=== PATIENT | female | born 1965 | race Two or more races ===

== ENCOUNTER 2020-12-21 08:07 | Outpatient (REF) | payer OTHER, SELFPAY ==
[2020-12-21 09:13] LABS: Estimated Average Glucose 105 mg/dL; Hemoglobin A1c % 5.3 %
[2020-12-21 09:35] LABS: Alanine Aminotransferase 79 U/L (0-31); Albumin Level 4.2 g/dL (3.5-5.0); Alkaline Phosphatase 119 U/L (39-117); Anion Gap 11 (12-20); Aspartate Amino Transferase 26 U/L (5-31); Blood Urea Nitrogen 18 mg/dL (9-16); Calcium 9.9 mg/dL (8.4-10.2); Carbon Dioxide 29 mmol/L (22-29); Chloride 105 mmol/L (96-108); Estimated Glomerular Filt Rate > 60; Glucose Random 100 mg/dL (60-115); Sodium 141 mmol/L (135-145); Total Protein 6.9 g/dL (6.5-8.0)
[2020-12-21 10:04] LABS: Free T4 (Free Thyroxine) 1.34 ng/dL (0.71-1.85); Thyroid Stimulating Hormone 0.13 uIU/mL (0.32-4.0)
[2020-12-21 12:29] LABS: Creatinine Urine 95.09 mg/dL
== END 2020-12-21 08:08 | disposition home or self-care (01) ==
LOC: HO.LAB 08:07
PROVIDERS: PCP Internal Medicine; Visit Provider Internal Medicine
DX: E03.9 Hypothyroidism, unspecified (principal); E11.65 Type 2 diabetes mellitus with hyperglycemia; K76.0 Fatty (change of) liver, not elsewhere classified
CPT/HCPCS: 36415; 80053; 83036; 84439; 84443

== ENCOUNTER 2021-03-06 10:25 | Outpatient (REF) | payer OTHER, SELFPAY ==
--- NOTE | ~2021-03-06 | MM_ITS ---
EXAMINATION: MM SCREENING DIGITAL BREAST TOMOSYNTHESIS, BILATERAL CLINICAL INFORMATION: Screening. Asymptomatic. Prior bilateral mastopexy, 2007. The lifetime risk of breast cancer based on the Tyrer-Cuzick Model is 9%. COMPARISON: Mammography: 03/04/2020, 02/27/2019, 12/30/2017 TECHNIQUE: Digital breast tomosynthesis is performed in both the craniocaudal and mediolateral oblique views along with computer-aided detection (CAD). Synthesized 2D images are generated from the tomosynthesis. FINDINGS: There are scattered areas of fibroglandular density (ACR BI-RADS breast composition Category b). There is minor stable scarring consistent with prior mastopexy. There is no interval mass or developing density or abnormal calcifications. No architectural abnormality. There are some dermal calcifications lower breasts. Vascular calcifications are noted periareolar left breast. The axilla are unremarkable. No significant changes from prior exams. MM/MM tomosynthesis screening BI IMPRESSION: No mammographic evidence of malignancy. ASSESSMENT: BI-RADS 2: Benign RECOMMENDATION: Routine annual mammography screening. This patient's information was entered into a reminder system with a target due date for their next mammogram.
== END 2021-03-06 10:26 | disposition home or self-care (01) ==
LOC: HO.MAMMO 10:25
PROVIDERS: Visit Provider Internal Medicine
DX: Z12.31 Encounter for screening mammogram for malignant neoplasm of breast (principal)
CPT/HCPCS: 77063; 77067

== ENCOUNTER 2022-03-09 10:18 | Outpatient (REF) | payer OTHER, SELFPAY ==
--- NOTE | ~2022-03-09 | MM_ITS ---
EXAMINATION: MM SCREENING DIGITAL BREAST TOMOSYNTHESIS, BILATERAL CLINICAL INFORMATION: Screening. Asymptomatic. History bilateral mastopexy, 2008. The lifetime risk of breast cancer based on the Tyrer-Cuzick Model is 8%. COMPARISON: Mammography: 03/06/2021, 03/04/2020, 02/27/2019 TECHNIQUE: Digital breast tomosynthesis is performed in both the craniocaudal and mediolateral oblique views along with computer-aided detection (CAD). Synthesized 2D images are generated from the tomosynthesis. FINDINGS: There are scattered areas of fibroglandular density (ACR BI-RADS breast composition Category b). Right tissue composition borders on predominantly fatty. Background fibroglandular and stromal markings are stable. There is minor scarring consistent with the prior mastopexy. No interval mass or architectural abnormality or developing density. No abnormal calcifications. The axilla are unremarkable. MM/MM tomosynthesis screening BI IMPRESSION: No mammographic evidence of malignancy. ASSESSMENT: BI-RADS 2: Benign RECOMMENDATION: Routine annual mammography screening. This patient's information was entered into a reminder system with a target due date for their next mammogram.
== END 2022-03-09 10:19 | disposition home or self-care (01) ==
LOC: HO.MAMMO 10:18
PROVIDERS: PCP Internal Medicine; Visit Provider Internal Medicine
DX: Z12.31 Encounter for screening mammogram for malignant neoplasm of breast (principal)
CPT/HCPCS: 77063; 77067

== ENCOUNTER 2022-06-06 11:26 | Outpatient (REF) | payer OTHER, SELFPAY ==
[2022-06-06 11:40] LABS: MANUAL DIFF FLAG NO
[2022-06-06 12:11] LABS: Basophils Absolute Auto 0.1 X10*3/uL (0.0-0.2); Eosinophils Absolute Auto 0.1 X10*3/uL (0.0-0.4); Eosinophils Percent Auto 2.7 % (0-4); Hematocrit 40.4 % (37.0-47.0); Hemoglobin 12.9 g/dl (12.0-16.0); Imm Gran Abs Auto 0.03 X10*3/uL (0.00-0.03); Imm Gran Pct Auto 0.6 % (0.0-0.4); Lymphocytes Absolute Auto 1.8 X10*3/uL (1.2-4.9); Lymphocytes Percent Auto 34.6 % (20-40); Mean Corpuscular HGB Conc 31.9 g/dl (31.0-35.0); Mean Corpuscular Hemoglobin 28.8 pg (27.0-33.0); Mean Corpuscular Volume 90.2 fL (80.0-98.0); Monocytes Absolute Auto 0.4 X10*3/uL (0.1-1.2); Monocytes Percent Auto 7.1 % (2-11); Neutrophils Absolute Auto 2.8 x10*3/uL (2.0-8.3); Platelet Count 285 X10*3/uL (160-400); Red Blood Count 4.48 X10*6/uL (4.20-5.50); Red Cell Distribution Width 13.1 % (11.0-16.0); White Blood Count 5.2 X10*3/uL (4.8-10.8)
[2022-06-06 12:19] LABS: Estimated Average Glucose 103 mg/dL; Hemoglobin A1c % 5.2 %
[2022-06-06 12:44] LABS: Alanine Aminotransferase 68 U/L (0-31); Albumin Level 4.4 g/dL (3.5-5.0); Alkaline Phosphatase 100 U/L (39-117); Anion Gap 9 (12-20); Aspartate Amino Transferase 49 U/L (5-31); Bilirubin Total 0.6 mg/dL (0.0-1.0); Blood Urea Nitrogen 15 mg/dL (9-16); Calcium 9.8 mg/dL (8.4-10.2); Carbon Dioxide 29 mmol/L (22-29); Chloride 106 mmol/L (96-108); Cholesterol 202 mg/dL; Estimated Glomerular Filt Rate > 60; Glucose Random 100 mg/dL (60-115); HDL Cholesterol 62 mg/dL; LDL Cholesterol Calculated 128 mg/dl; Potassium 4.4 mmol/L (3.3-5.1); Sodium 140 mmol/L (135-145); Total Protein 6.9 g/dL (6.5-8.0); Triglycerides 62 mg/dL
[2022-06-06 13:06] LABS: Free T4 (Free Thyroxine) 1.02 ng/dL (0.71-1.85); Thyroid Stimulating Hormone 1.08 uIU/mL (0.32-4.0)
[2022-06-06 13:43] LABS: Folate 12.6 ng/mL (> or = 4.0); Vitamin B12 437 pg/mL (200-900)
== END 2022-06-06 11:27 | disposition home or self-care (01) ==
LOC: HO.LAB 11:26
PROVIDERS: PCP Internal Medicine; Visit Provider Internal Medicine
DX: R73.02 Impaired glucose tolerance (oral) (principal); E03.9 Hypothyroidism, unspecified; E78.00 Pure hypercholesterolemia, unspecified; I10 Essential (primary) hypertension
CPT/HCPCS: 36415; 80053; 80061; 82306; 82607; 82746; 83036; 84439; 84443; 85025

== ENCOUNTER → 2022-09-03 14:03 | Outpatient (BNVA) | payer OTHER, SELFPAY | PROVIDERS: PCP Internal Medicine; Referring Provider Internal Medicine; Visit Provider Nurse Practitioner Family | DX: Z13.89 Encounter for screening for other disorder (principal) ==

== ENCOUNTER 2023-01-07 15:50 | Outpatient (AMB) | payer OTHER, SELFPAY ==
[2023-01-07 15:56] VITALS: BP 130/72; PULSE 78; O2SAT 98; BMI 38.4
--- NOTE | 2023-01-07 15:56 | A.OFFPC_ITS ---
Vital Signs 01/07/23 15:56 Height 5 ft 4 in Weight 224 lb BMI 38.4 BP 130/72 Blood Pressure Location Lt brachial Position Sitting Pulse 78 Pulse Source Pulse Oximeter Pulse Oximetry (%) 98 Oxygen Delivery Method Room Air Intake Visit Reasons: PE Allergies No Known Allergies [No Known Allergies*] Allergy (Verified 01/07/23 15:56) Medication List - Last Reconciled 01/07/23 by Johnathan Zayas MD bisacodyl (Dulcolax (bisacodyl)) 10 mg (2 x 5 mg) PO ONCE 1 day cholecalciferol (vitamin D3) 50 mcg PO DAILY hydrochlorothiazide 25 mg PO DAILY levothyroxine 175 mcg PO DAILY 90 days polyethylene glycol 3350 (Miralax) 238 grams PO ONCE polyethylene glycol 3350 (Miralax) 17 grams PO DAILY Tobacco use date assessed: 08/06/22 Dental Screening Dental Screen Date: 01/07/23 Did you have a dental visit in the last 12 months?: Yes Did you have a dental problem in the last 6 months where you did not have access to dental care?: No Was dental information given to patient?: Patient has dentist HPI PE HPI Details 57-year-old obese female with hypertension hypothyroidism impaired glucose tolerance coming in for physical exam. Last seen in July 2022. Because of the history of tubular adenoma referral to Gastroenterology done. eye watery right side and seen eye doctor rx eye drop . 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 with plantar fasciitis patient is interested with semaglutide for losing weight PFSH Medical History (Updated 01/07/23 @ 16:31 by Johnathan Zayas MD) Anxiety and depression Colon cancer screening Fatty liver Glaucoma Hypertension Hypothyroid Obesity (BMI 30-39.9) Peripheral vascular disease Tubular adenoma of colon Vitamin D deficiency Surgical History History of breast mammoplasty History of cholecystectomy History of tubal ligation Family History (Updated 01/07/23 @ 15:57 by Raquel Cruz CMA) Father CVA (cerebrovascular accident due to intracerebral hemorrhage) Stroke Mother No problems noted. Sister Depression Son Drug abuse Brother CVA (cerebrovascular accident due to intracerebral hemorrhage) Social History (Updated 01/07/23 @ 16:30 by Johnathan Zayas MD) Housing: House Alcohol intake: current Alcohol intake frequency: a few times a week Patient Tobacco Use Status: Never used Tobacco e-Cigarette/Vaping Use: Never Used Second Hand Smoke Exposure: No service: No Current occupational status: employed Cognitive needs: No Hearing needs: No Vision needs: Yes Questionnaire PHQ-9 Over the last 2 weeks, how often have you been bothered by any of the following problems? 1. Little interest or pleasure in doing things: not at all 2. Feeling down, depressed, or hopeless: not at all 3. Trouble falling or staying asleep, or sleeping too much: not at all 4. Feeling tired or having little energy: not at all 5. Poor appetite or overeating: not at all 6. Feeling bad about yourself - or that you are a failure or have let yourself or your family down: not at all 7. Trouble concentrating on things, such as reading the newspaper or watching television: not at all 8. Moving or speaking so slowly that other people could have noticed. Or the opposite - being so fidgety or restless that you have been moving around a lot more than usual: not at all 9. Thoughts that you would be better off or of hurting yourself in some way: not at all Total score: 0 Depression Screening Interpretation: Negative Source: Developed by Drs. Inocencio Hernandez, Trini Calle, Maximilian Conway and colleagues, with an educational denise from [employer]. Thrive Questionnaire Date Thrive assessed: 08/06/22 AUDIT C Alcohol Use Questionnaire (AUDIT-C) 1. How often do you have a drink containing alcohol?: 2-3 times a week 2. How many drinks containing alcohol do you have on a typical day when you are drinking?: 3 or 4 3. How often do you have six or more drinks on one occasion?: Never Total Score: 4 DANI-7 AMB Questionnaire DANI-7 Date DANI - 7 assessed: 08/06/22 Source: Developed by Drs. Inocencio Hernandez, Maximilian Brown and colleagues, with an educational denise from [employer]. Review of Systems Const Denies poor appetite and Denies weakness Eyes Denies no additional complaints ENT Reports Normal hearing present, Denies dizziness, Denies nasal congestion, Denies tinnitus and Denies sore throat Card Denies chest pain, Denies syncope, Denies rapid heart rate and Denies dyspnea Resp Denies cough and Denies dyspnea GI Denies change in stool character, Reports constipation, Denies diarrhea, Denies nausea and Denies vomiting Denies urinary frequency, Denies difficulty voiding and Denies dysuria Neuro Reports Normal hearing present, Denies confusion, Denies dizziness, Denies syncope and Denies weakness Psych Denies confusion Physical exam (Primary Care) Vital Signs: Last Vital Signs Pulse 78 01/07/23 15:56 BP 130/72 01/07/23 15:56 Pulse Ox 98 01/07/23 15:56 Oxygen Delivery Method Room Air 01/07/23 15:56 BMI result Body Mass Index 38.4 Tobacco/Smoking Status: Tobacco use Status Tobacco use date assessed 08/06/22 01/07/23 15:58 Patient Tobacco Use Status Never used Tobacco 01/07/23 15:58 e-Cigarette/Vaping Use Never Used 01/07/23 15:58 PHQ-9: PHQ-9 Score PHQ-9: Total score 0 01/07/23 15:58 Depression Screening Interpretation: Negative Thrive Assessment: Date of Thrive Assessment Date Thrive assessed 08/06/22 01/07/23 15:58 Const General: No confusion Orientation/consciousness: No confusion HENMT Head: Yes normocephalic Ears: external ears normal and TM's normal bilaterally Face and sinus: Yes normal facial exam Mouth: moist mucous membranes Throat: Yes tonsils normal Eyes Conjunctivae: conjunctivae normal Pupils: Equal, round and reactive pupils present and Pupil accommodation reflex normal Direct Ophthalmoscopy: normal light reflex Neck Neck: No lymphadenopathy Thyroid: Thyroid normal Chest Chest palpation & inspection: normal inspection of the chest Resp Effort & Inspection: normal respiratory effort and no audible wheezes Auscultation: clear to auscultation bilaterally, no crackles, no wheezes and lung sounds not diminished Cardio Rate: regular rate Rhythm: regular rhythm Peripheral pulses: radial pulses present and dorsalis pedis present GI Other: Colonoscopy is pending Palpation (GI): no masses Auscultation: normal bowel sounds and normoactive bowel sounds Rectal Exam - Female: deferred Skin General skin exam: no rashes or lesions noted Rashes: no rashes Neuro General: No confusion Cranial nerves: Yes Equal, round and reactive pupils present and Yes Normal hearing present Cognition (Neuro): normal cognition Gait exam (Neuro): Normal gait present Motor exam (neuro): 5/5 motor strength present throughout Deep tendon reflexes (DTR's): Right brachioradialis reflex intensity grade: 2+, Left brachioradialis reflex intensity grade: 2+, Right patellar reflex intensity grade: 2+ and Left patellar reflex intensity grade: 2+ Extrem General: No edema Assessment and Plan Assessment & Plan (1) Annual physical exam: Code(s): Z00.00 - Encounter for general adult medical examination without abnormal findings (2) Obesity (BMI 30-39.9): Code(s): E66.9 - Obesity, unspecified Plan: Diet and exercise (3) Hypothyroid: Code(s): E03.9 - Hypothyroidism, unspecified Qualifiers: Hypothyroidism type: acquired Qualified Code(s): E03.9 - Hypothyroidism, unspecified Plan: Continue with the thyroid medication (4) Hypertension: Code(s): I10 - Essential (primary) hypertension Qualifiers: Hypertension type: essential hypertension Qualified Code(s): I10 - Essential (primary) hypertension Plan: Continue with blood pressure medication. Decrease salt intake and exercise patient is taking hydrochlorothiazide 25 mg once a day (5) Generalized anxiety disorder: Code(s): F41.1 - Generalized anxiety disorder Plan: Stable (6) Tubular adenoma of colon: Code(s): D12.6 - Benign neoplasm of colon, unspecified Plan: Patient has met with gastroenterology and planned colonoscopy February (7) Fatty liver: Code(s): K76.0 - Fatty (change of) liver, not elsewhere classified Plan: Low-fat diet and exercise (8) Impaired glucose tolerance: Code(s): R73.02 - Impaired glucose tolerance (oral) Plan: Decrease the amount of carbohydrate intake, pasta, bread, rice and potatoes are all sugar and that is aside from all the sweet stuff, remember that fruits are good but they are Sweet also. (9) Hearing deficit: Code(s): H91.90 - Unspecified hearing loss, unspecified ear Orders: Orders Vitamin B12 and Folate Today E03.9 - Hypothyroidism, unspecified Comprehensive Met. Panel Today E03.9 - Hypothyroidism, unspecified Hemoglobin A1c Today R73.02 - Impaired glucose tolerance (oral) Lipid Panel Today E03.9 - Hypothyroidism, unspecified, E78.00 - Pure hypercholesterolemia, unspecified Free T4 (Free Thyroxine) Today E03.9 - Hypothyroidism, unspecified Thyroid Stimulating Hormone Today E03.9 - Hypothyroidism, unspecified Vitamin D 25-OH Total Today E03.9 - Hypothyroidism, unspecified Complete Blood Count Auto Diff Today E03.9 - Hypothyroidism, unspecified Referrals Speech and Hearing Referral H91.90 - Unspecified hearing loss, unspecified ear Medications: New semaglutide for 4 weeks 0.25 mg (0.368 mL) subcut QWEEK 3 mL 1RF E66.9 - Obesity, unspecified Coding Level of Care Code Est Pt Prev Care 40-64y(84644) Diagnoses Annual physical exam Z00.00 Obesity (BMI 30-39.9) E66.9 Hypothyroid E03.9 Hypothyroidism type: acquired Hypertension I10 Hypertension type: essential hypertension Generalized anxiety disorder F41.1 Tubular adenoma of colon D12.6 Fatty liver K76.0 Impaired glucose tolerance R73.02 Hearing deficit H91.90
== END 2023-01-07 17:06 | disposition home or self-care (01) ==
PROVIDERS: PCP Internal Medicine; Visit Provider Internal Medicine
DX: Z00.00 Encounter for general adult medical examination without abnormal findings (principal); E66.9 Obesity, unspecified; E03.9 Hypothyroidism, unspecified; Z68.34 Body mass index [BMI] 34.0-34.9, adult; I10 Essential (primary) hypertension; F41.1 Generalized anxiety disorder; D12.6 Benign neoplasm of colon, unspecified; K76.0 Fatty (change of) liver, not elsewhere classified; R73.02 Impaired glucose tolerance (oral)
CPT/HCPCS: 99396

== ENCOUNTER 2023-02-20 08:03 | Day surgery (SDC) | payer OTHER, SELFPAY ==
[2023-02-18 09:56] VITALS: BMI 38.4
--- NOTE | 2023-02-19 13:07 | HO.ANESPROP2 ---
Documented by User: Tracy Hope NP 02/19/23 13:07 HPI - Anesthesia Eval Consult details Narrative: 57yo F for Colonoscopy PMFSH Active Problems Active Problems: All Active Problems (Updated 01/07/23 @ 16:31 by Johnathan Zayas MD) Hearing deficit (Acute) Meralgia paresthetica of left side (Acute) Plantar fasciitis of left foot (Acute) Constipation (Acute) COVID-19 virus infection (Acute) Generalized anxiety disorder (Acute) Annual physical exam (Acute) Visual problems (Acute) Tubular adenoma of colon (Acute) Fatty liver (Acute) Impaired glucose tolerance (Acute) Obesity (BMI 30-39.9) (Acute) Hypertension (Acute) Hypothyroid (Acute) Past Medical History Medical History (Updated 01/07/23 @ 16:31 by Johnathan Zayas MD) Tubular adenoma of colon Colon cancer screening Glaucoma Anxiety and depression Obesity (BMI 30-39.9) Vitamin D deficiency Hypertension Hypothyroid Peripheral vascular disease Fatty liver Family History Family History (Updated 01/07/23 @ 15:57 by Raquel Cruz WATCH AND CLOCK REPAIR CLERK) Father CVA (cerebrovascular accident due to intracerebral hemorrhage) Stroke Mother No problems noted. Sister Depression Son Drug abuse Brother CVA (cerebrovascular accident due to intracerebral hemorrhage) Surgical History Surgical History History of breast mammoplasty History of cholecystectomy History of tubal ligation Social History Social History (Updated 01/07/23 @ 16:30 by Johnathan Zayas MD) Housing: House Alcohol intake: current Alcohol intake frequency: a few times a week Patient Tobacco Use Status: Never used Tobacco e-Cigarette/Vaping Use: Never Used Second Hand Smoke Exposure: No service: No Current occupational status: employed Cognitive needs: No Hearing needs: No Vision needs: Yes Meds Allergies Allergy/AdvReac Type Severity Reaction Status Date / Time No Known Allergies Allergy Verified 01/07/23 15:56 [No Known Allergies*] Home Medications Medication Instructions Recorded Confirmed Last Taken Type cholecalciferol (vitamin D3) 50 50 mcg PO DAILY 01/02/22 01/07/23 Unknown History mcg (2,000 unit) capsule Exam Exam Date and Time: February 19, 2023 1307 Height,Weight and Vital Signs: Height 5 ft 4 in Weight 101.605 kg Assessment and Plan Assessment Anesthesia Assessment: Chart Reviewed Documented by User: Ja Ventura MD 02/20/23 16:40 PMF Past Medical History Medical History (Updated 01/07/23 @ 16:31 by Johnathan Zayas MD) Tubular adenoma of colon Colon cancer screening Glaucoma Anxiety and depression Obesity (BMI 30-39.9) Vitamin D deficiency Hypertension Hypothyroid Peripheral vascular disease Fatty liver Functional capacity: independent ambulation Family History Family History (Updated 01/07/23 @ 15:57 by Raquel Cruz [facility]) Father CVA (cerebrovascular accident due to intracerebral hemorrhage) Stroke Mother No problems noted. Sister Depression Son Drug abuse Brother CVA (cerebrovascular accident due to intracerebral hemorrhage) Family history of problems with anesthesia: No Surgical History Surgical History History of breast mammoplasty History of cholecystectomy History of tubal ligation History of Problems with Anesthesia: No Social History Social History (Updated 01/07/23 @ 16:30 by Johnathan Zayas MD) Housing: House Alcohol intake: current Alcohol intake frequency: a few times a week Patient Tobacco Use Status: Never used Tobacco e-Cigarette/Vaping Use: Never Used Second Hand Smoke Exposure: No service: No Current occupational status: employed Cognitive needs: No Hearing needs: No Vision needs: Yes Meds Allergies Allergy/AdvReac Type Severity Reaction Status Date / Time No Known Allergies Allergy Verified 01/07/23 15:56 [No Known Allergies*] Home Medications Medication Instructions Recorded Confirmed Last Taken Type cholecalciferol (vitamin D3) 50 50 mcg PO DAILY 01/02/22 01/07/23 Unknown History mcg (2,000 unit) capsule Exam Airway Mallampati Class: III Loose/Missing/Broken Teeth: Yes Assessment and Plan Assessment Anesthesia Assessment: Anesthesia Plan Discussed Final Anesthetic Review Family History of Problems with Anesthesia: No History of Problems with Anesthesia: No NPO: Yes ASA Class: III Final Preanesthetic Review: Meds/Allgs Chart Reviewed, Consent Obtained/Reviewed and Anes Risks/Benef Reviewed Patient Risk: Intermediate Procedure Risk: Intermediate Anesthetic Plan Anesthetic Plan: MAC: Disposition: Standard PACU
[2023-02-20 09:37] VITALS: BP 138/48; PULSE 64; RESP 18; TEMP 36.3; O2SAT 97; BMI 37.8
[2023-02-20] MEDS: Lactated Ringers 1,000 ML 100 ML IVCONT (09:45)
--- NOTE | 2023-02-20 10:17 | P.HPSUR_ITS ---
Pre-Procedural Eval Section A Date of Service: 02/20/23 Section B Chief Complaint: Encounter for screening for malignant neoplasm Relevant Family History (Specify if Yes): No Relevant Social History: None Present Medications: see Short Stay Collaborative assessment Medical History: Significant History (Tubular adenoma of colon Colon cancer screening Glaucoma Anxiety and depression Obesity (BMI 30-39.9) Vitamin D deficiency Hypertension Hypothyroid Peripheral vascular disease Fatty liver) History of Previous Operations: Relevant previous surgery/procedure and date(s) (History of breast mammoplasty History of cholecystectomy History of tubal ligation) Allergies: Allergies Allergy/AdvReac Type Severity Reaction Status Date / Time No Known Allergies Allergy Verified 01/07/23 15:56 [No Known Allergies*] Review of Systems Sugical H&P ROS: Negative: Constitution, Cardiovascular, Respiratory, Neurological, Psychiatric, Hem-Onc, Allergic/Immunologic, Gastrointestinal, Genitourinary, Musculoskeletal, Integumentary, Endocrine and Eyes/Ears/Nose/Thr oat Exam Surgical H&P Exam: Normal: HEENT, Normal: Heart, Normal: Lungs, Normal: Extremities, Normal: Abdomen, Normal: Skin and Normal: Neurological Plan Diagnosis/Plan: Unchanged I have reviewed the history and physical and performed a pertinent physical examination on my patient. No changes have occurred unless specified. Time Spent With Patient Time: Total time managing care of this patient today ____ minutes.
--- NOTE | 2023-02-20 10:18 | W.PM.OPN ---
Operative Note Operative Note Date of Service: 02/20/23 Narrative: Operative Information Procedure Description: Colonoscopy Indication: screening Anesthesia: MAC COLONOSCOPY Instrument: Olympus variable stiffness pediatric scope 190L Colonoscopy Monitoring: Vital signs and clinical assessment, continuous EKG monitoring, Pulse oximetry, Carbon Dioxide monitoring and blood pressure monitoring were done throughout the procedure. Colon withdrawal time was 10 minutes. Procedure: The patient was placed in the left lateral decubitis position and pre-procedure medications were administered. After a digital rectal examination of the ano-rectum, the video colonoscope was inserted into the rectum and advanced through the colon to the cecum/TI. The colonoscope was slowly withdrawn in a retrograde panoramic fashion and the colon mucosa was carefully examined including a retroflexed view of the rectum. Findings and interventions are described below. Procedure Difficulty: moderate, looping, pressure applied Findings: Terminal Ileum-not intubated Cecum:normal Ascending Colon: normal Transverse Colon -normal Descending Colon: mild diverticulosis Sigmoid Colon:moderate diverticulosis Rectum: Retroflexion with small internal hemorrhoids, grade I Anorectum - normal Colon preparation: [place] Bowel Preparation Scale Right colon; 1-2 Transverse colon: 2 Left colon; 2 (0 = Unprepared colon segment with mucosa not seen due to solid stool that cannot be cleared. 1 = Portion of mucosa of the colon segment seen, but other areas of the colon segment not well seen due to staining, residual stool and/or opaque liquid. 2 = Minor amount of residual staining, small fragments of stool and/or opaque liquid, but mucosa of colon segment seen well. 3 = Entire mucosa of colon segment seen well with no residual staining, small fragments of stool or opaque liquid) Impression and Post Procedure Diagnosis: internal hemorrhoids diverticular disease Plan: High fiber diet leaflet Avoid straining at stool, epsom salts and sitz bath, anusol supps or cream Repeat Colonoscopy in 5 years due to fair prep on right side or earlier if clinically indicated Above findings were reviewed with the patient and relevant handouts were provided if indicated.
[2023-02-20 10:58] VITALS: BP 138/86; PULSE 81; RESP 16; TEMP 36.1; O2SAT 100
[2023-02-20 11:13] VITALS: BP 151/90; PULSE 73; RESP 14; TEMP 36.1; O2SAT 98
== END 2023-02-20 12:25 | disposition home or self-care (01) ==
PROVIDERS: PCP Internal Medicine; Visit Provider Internal Medicine Gastroenterology
PROC: 0DJD8ZZ Inspection of Lower Intestinal Tract, Via Natural or Artificial Opening Endoscopic (ICD-10-PCS; CPT 45378; principal; 2023-02-20 10:50)
DX: Z12.11 Encounter for screening for malignant neoplasm of colon (principal); Z86.010 Personal history of colon polyps; K57.30 Diverticulosis of large intestine without perforation or abscess without bleeding; K64.0 First degree hemorrhoids; K76.0 Fatty (change of) liver, not elsewhere classified; I10 Essential (primary) hypertension; I73.9 Peripheral vascular disease, unspecified; E03.9 Hypothyroidism, unspecified; E55.9 Vitamin D deficiency, unspecified; F41.8 Other specified anxiety disorders; Z90.49 Acquired absence of other specified parts of digestive tract
CPT/HCPCS: 45378; J2405; J2765

== ENCOUNTER → 2023-02-20 08:03 | Outpatient (BNV) | payer OTHER, SELFPAY | PROVIDERS: PCP Internal Medicine; Visit Provider Internal Medicine Gastroenterology | DX: Z12.11 Encounter for screening for malignant neoplasm of colon (principal); K57.90 Diverticulosis of intestine, part unspecified, without perforation or abscess without bleeding; K64.9 Unspecified hemorrhoids | CPT/HCPCS: 45378 ==

== ENCOUNTER 2023-03-05 15:58 | Outpatient (AMB) | payer OTHER, SELFPAY ==
--- NOTE | 2023-03-05 16:01 | A.OFFVIS_ITS ---
Intake Vital Signs 03/05/23 16:02 Height 5 ft 4 in Weight 220 lb 7.396 oz BMI 37.8 BP 163/73 H Blood Pressure Location Lt brachial Position Sitting Pulse 72 Intake Visit Reasons: S/P [place];Dr. Pedersen Intake Note: Esha presents in the office as a follow up colonoscopy. CC: No concerns since her procedure. Calibration Engineer Required: No Allergies No Known Allergies [No Known Allergies*] Allergy (Verified 03/05/23 16:04) HPI S/P [place];Dr. Pedersen HPI Details LAST VISIT Colon cancer screening Patient denies any GI, cardiac or respiratory symptoms.? Denies any issues with anesthesia in the past.? Denies any history of sleep apnea.? No history infectious diseases in the past or present.? Not on any anticoagulation therapy.? No family history of colon cancer.? Patient denies melena, hematochezia, unintentional weight loss or ribbon like stools.? Discussed at length the pre-procedure,? prep, diet & medications as well as what to expect prior, during and after the procedure.?? Stressed the importance of good bowel prep. ?Recommended the use of Vaseline or Calmoseptine OTC & baby wipes with bowel movements to promote comfort.? ?Patient verbalizes understanding and agrees to plan of care.? She was given the opportunity to ask questions and all questions answered.? We will see her after the procedure.? COLONOSCOPY: Findings: Terminal Ileum-not intubated Cecum:normal Ascending Colon: normal Transverse Colon -normal Descending Colon: mild diverticulosis Sigmoid Colon:moderate diverticulosis Rectum: Retroflexion with small internal hemorrhoids, grade I Anorectum - normal Colon preparation: [place] Bowel Preparation Scale Right colon; 1-2 Transverse colon: 2 Left colon; 2 (0 = Unprepared colon segment with mucos a not seen due to solid stool that cannot be cleared. 1 = Portion of mucosa of the colon segme nt seen, but other areas of the colon segment not well seen due to staining, residual stool and/or opaque liquid. 2 = Minor amount of residual staining, s mall fragments of stool and/or opaque liquid, but mucosa of colon segment seen well. 3 = Entire mucosa of colon segment seen well with no residual staining, small fragments of stool or opaque liquid) Impression and Post Procedure Diagnosis: internal hemorrhoids diverticular disease Plan: High fiber diet leaflet Avoid straining at stool, epsom salts and sitz bath, anusol supps or cream Repeat Colonoscopy in 5 years due to fair prep on right side or earlier if clinically indicated TODAY'S VISIT Patient is here today for follow-up and to discuss colonoscopy results. Patient denies any ill effects from the prep, anesthesia or procedure itself. Internal hemorrhoids and diverticulosis found. No polyps. Patient did have however suboptimal prep and recommendation was made for patient to return for colorectal screening in 5 years. Also patient had colonoscopy 2016 that showed tubular a denoma. Patient denies any family history of colorectal cancer. Patient denies any melena, hematochezia, unintentional weight loss or ribbon like stools. Patient denies any other GI concerning symptoms. Reports that she has been moving her bowels better [facility] Medical History (Updated 01/07/23 @ 16:31 by Johnathan Zayas MD) Tubular adenoma of colon Colon cancer screening Glaucoma Anxiety and depression Obesity (BMI 30-39.9) Vitamin D deficiency Hypertension Hypothyroid Peripheral vascular disease Fatty liver Surgical History (Updated 03/05/23 @ 16:02 by MARTIN Arnold) Hx of colonoscopy History of breast mammoplasty History of cholecystectomy History of tubal ligation Family History (Updated 01/07/23 @ 15:57 by Raquel Cruz CMA) Father CVA (cerebrovascular accident due to intracerebral hemorrhage) Stroke Mother No problems noted. Sister Depression Son Drug abuse Brother CVA (cerebrovascular accident due to intracerebral hemorrhage) Social History (Updated 01/07/23 @ 16:30 by Johnathan Zayas MD) Housing: House Alcohol intake: current Alcohol intake frequency: a few times a week Patient Tobacco Use Status: Never used Tobacco e-Cigarette/Vaping Use: Never Used Second Hand Smoke Exposure: No service: No Current occupational status: employed Cognitive needs: No Hearing needs: No Vision needs: Yes Review of Systems Const Denies weight gain and Denies weight loss ENT Reports no additional complaints, Denies dysphagia and Denies odynophagia Card Reports no additional complaints Resp Reports no additional complaints GI Denies abdominal pain, Denies belching, Denies melena, Denies bloating, Denies change in bowel habits, Denies dysphagia, Denies excessive flatus, Denies dyspepsia, Denies heartburn, Denies diarrhea, Denies loose stools, Denies nausea, Denies odynophagia and Denies vomiting Musc Reports no additional complaints Neuro Reports no additional complaints Psych Reports no additional complaints Endo Reports no additional complaints Physical Exam Vital Signs: Last Vital Signs Pulse 72 03/05/23 16:02 BP 163/73 H 03/05/23 16:02 BMI result Body Mass Index 37.8 Const General: healthy appearing, no acute distress and well developed Nutritional Appearance: obese Orientation/consciousness: patient oriented x3 HEENT Head: Yes normal to inspection, Yes normocephalic and Yes atraumatic Face and sinus: Yes normal facial exam Mouth: Normal oral and palatal mucosa present Throat: Yes posterior oropharynx normal, Yes tonsils normal and Yes uvula midline Eyes General: appearance normal, both eyes and all related structures Neck Neck: Yes normal visual inspection, Yes full ROM and Yes trachea midline Thyroid: Thyroid normal Resp Effort & Inspection: normal respiratory effort, able to speak in complete sentences, no tracheal deviation and symmetric chest movement Auscultation: clear to auscultation bilaterally Cardio Rate: regular rate Heart sounds: S1 normal heart sound present and S2 normal heart sound present GI Inspection: Yes normal to inspection, No distended and Yes obesity Palpation (GI): Soft to palpation, not firm, nontender and No hepatosplenomegaly present Auscultation: normal bowel sounds General: Yes no CVA tenderness Back/Spine/Pelvis Back: no CVA tenderness Skin General skin exam: elasticity normal, turgor normal and dry skin Neuro General: patient oriented x3 Psych Appearance: grossly normal Mental Status: mental status grossly normal Assessment & Plan Assessment & Plan (1) Status post colonoscopy: Code(s): Z98.890 - Other specified postprocedural states (2) Diverticulosis: Code(s): K57.90 - Diverticulosis of intestine, part unspecified, without perforation or abscess without bleeding Plan Patient will repeat colonoscopy in 5 years, sooner if clinically necessary. Patient denies any GI concerning symptoms. Discussed with patient high-fiber diet and importance of moving her bowels daily. Patient reports that she is doing better. Denies having constipation. I will see her on as needed basis. Patient is agreeable to this plan and verbalizes understanding of instructions. She was given the opportunity to ask questions and all questions answered. Thank you for allowing me to participate her care Coding Level of Care Code Est Pt Level 3 (86296) Diagnoses Status post colonoscopy Z98.890 Diverticulosis K57.90 Time Spent (min) 25 Comment 15 minutes spent with patient and additional 10 minutes spent reviewing her records.
[2023-03-05 16:02] VITALS: BP 163/73; PULSE 72; BMI 37.8
== END 2023-03-05 16:38 | disposition home or self-care (01) ==
PROVIDERS: PCP Internal Medicine; Visit Provider Nurse Practitioner Family
DX: Z98.890 Other specified postprocedural states (principal); K57.90 Diverticulosis of intestine, part unspecified, without perforation or abscess without bleeding
CPT/HCPCS: 99213

== ENCOUNTER → 2023-03-05 15:58 | Outpatient (BNVA) | payer OTHER, SELFPAY | PROVIDERS: PCP Internal Medicine; Visit Provider Nurse Practitioner Family ==

== ENCOUNTER 2023-03-14 14:58 | Outpatient (REF) | payer OTHER, SELFPAY ==
--- NOTE | ~2023-03-14 | MM_ITS ---
EXAMINATION: MM SCREENING DIGITAL BREAST TOMOSYNTHESIS, BILATERAL CLINICAL INFORMATION: Screening. Asymptomatic. The patient has had a prior bilateral breast reduction. COMPARISON: Mammography: This study is compared with prior exams dating back to 2018. TECHNIQUE: Digital breast tomosynthesis is performed in both the craniocaudal and mediolateral oblique views along with computer-aided detection (CAD). Synthesized 2D images are generated from the tomosynthesis. FINDINGS: The breasts are almost entirely fatty (ACR BI-RADS breast composition Category a). There are no significant masses, abnormal calcifications, or other abnormalities. Post reduction changes are present. MM/MM tomosynthesis screening BI IMPRESSION: No mammographic evidence of malignancy. ASSESSMENT: BI-RADS BI-RADS 2 - Benign Findings RECOMMENDATION: Routine annual mammography screening. 1 year F/U This examination should not preclude the clinical evaluation of a suspicious palpable abnormality. This patient's information was entered into a reminder system with a target due date for their next mammogram.
== END 2023-03-14 14:59 | disposition home or self-care (01) ==
LOC: HO.MAMMO 14:58
PROVIDERS: PCP Internal Medicine; Visit Provider Internal Medicine
DX: Z12.31 Encounter for screening mammogram for malignant neoplasm of breast (principal)
CPT/HCPCS: 77063; 77067

== ENCOUNTER → 2023-03-14 15:15 | Outpatient (BNV) | payer OTHER, SELFPAY | PROVIDERS: PCP Internal Medicine; Visit Provider Radiology Diagnostic Radiology | DX: Z12.31 Encounter for screening mammogram for malignant neoplasm of breast (principal) | CPT/HCPCS: 77063; 77067 ==

== ENCOUNTER 2023-04-10 07:42 | Outpatient (REF) | payer OTHER, SELFPAY ==
[2023-04-10 10:34] LABS: MANUAL DIFF FLAG NO
[2023-04-10 10:39] LABS: Basophils Absolute Auto 0.1 X10*3/uL (0.0-0.2); Basophils Percent Auto 1.4 % (0-2); Eosinophils Absolute Auto 0.3 X10*3/uL (0.0-0.4); Eosinophils Percent Auto 4.4 % (0-4); Hematocrit 40.9 % (37.0-47.0); Imm Gran Abs Auto 0.03 X10*3/uL (0.00-0.03); Imm Gran Pct Auto 0.5 % (0.0-0.4); Lymphocytes Percent Auto 34.6 % (20-40); Mean Corpuscular HGB Conc 31.8 g/dl (31.0-35.0); Mean Corpuscular Hemoglobin 29.3 pg (27.0-33.0); Mean Corpuscular Volume 92.1 fL (80.0-98.0); Mean Platelet Volume 10.9 fL (9.4-12.3); Monocytes Absolute Auto 0.4 X10*3/uL (0.1-1.2); Monocytes Percent Auto 7.8 % (2-11); Neutrophils Absolute Auto 2.9 x10*3/uL (2.0-8.3); Neutrophils Percent Auto 51.3 % (45-73); Platelet Count 287 X10*3/uL (160-400); Red Blood Count 4.44 X10*6/uL (4.20-5.50); White Blood Count 5.7 X10*3/uL (4.8-10.8)
[2023-04-10 10:53] LABS: Estimated Average Glucose 105 mg/dL; Hemoglobin A1c % 5.3 % (<6.0)
[2023-04-10 10:58] LABS: Alanine Aminotransferase 43 U/L (0-31); Albumin Level 4.2 g/dL (3.5-5.0); Alkaline Phosphatase 97 U/L (39-117); Anion Gap 13 (12-20); Aspartate Amino Transferase 35 U/L (5-31); Bilirubin Total 0.4 mg/dL (0.0-1.0); Blood Urea Nitrogen 21 mg/dL (9-16); Calcium 10.1 mg/dL (8.4-10.2); Carbon Dioxide 28 mmol/L (22-29); Chloride 105 mmol/L (96-108); Cholesterol 218 mg/dL (<200); Estimated Glomerular Filt Rate > 60; Glucose Random 107 mg/dL (60-115); HDL Cholesterol 62 mg/dL (>40); LDL Cholesterol Calculated 134 mg/dL (<100); Potassium 3.6 mmol/L (3.3-5.1); Sodium 142 mmol/L (135-145); Total Protein 6.9 g/dL (6.5-8.0); Triglycerides 114 mg/dL (<150)
[2023-04-10 11:14] LABS: Free T4 (Free Thyroxine) 0.79 ng/dL (0.71-1.85); Thyroid Stimulating Hormone 8.77 uIU/mL (0.32-4.0); Vitamin D 25-OH Total 22.4 ng/mL (>30)
[2023-04-10 11:26] LABS: Folate 7.3 ng/mL (> or = 4.0); Vitamin B12 455 pg/mL (200-900)
== END 2023-04-10 07:43 | disposition home or self-care (01) ==
LOC: HO.10HDL 07:42
PROVIDERS: Visit Provider Internal Medicine
DX: E03.9 Hypothyroidism, unspecified (principal); R73.02 Impaired glucose tolerance (oral); E78.00 Pure hypercholesterolemia, unspecified; E55.9 Vitamin D deficiency, unspecified
CPT/HCPCS: 36415; 80053; 80061; 82306; 82607; 82746; 83036; 84439; 84443; 85025

== ENCOUNTER 2023-04-15 15:09 | Outpatient (AMB) | payer OTHER, SELFPAY ==
[2023-04-15 15:13] VITALS: BP 142/92; PULSE 75; O2SAT 99; BMI 37.8
--- NOTE | 2023-04-15 15:13 | MHC.PC.OV ---
Vital Signs 04/15/23 15:13 Height 5 ft 4 in Weight 220 lb BMI 37.8 BP 142/92 H Blood Pressure Location Lt brachial Position Sitting Pulse 75 Pulse Source Pulse Oximeter Pulse Oximetry (%) 99 Oxygen Delivery Method Room Air Intake Visit Reasons: 3 month f/u Auto Painter Required: No Software Implementation Specialist: Not Required per policy Accompanied by: Self / Same As Patient Allergies No Known Allergies [No Known Allergies*] Allergy (Verified 04/15/23 15:13) Tobacco use date assessed: 08/06/22 Dental Screening Dental Screen Date: 04/15/23 Did you have a dental visit in the last 12 months?: Yes Did you have a dental problem in the last 6 months where you did not have access to dental care?: No Was dental information given to patient?: Patient has dentist HPI 3 month f/u HPI Details 57-year-old obese female with hypothyroidism hypertension generalized anxiety disorder fatty liver impaired glucose tolerance last seen in January 2023 for physical exam. Patient had tubular adenoma and had colonoscopy February 2023. Blood work was done showing elevated TSH and patient admits to missing doses. With this advised patient to take the medication regularly and religiously and retest blood work. 3 weeks post flu shot - has congestion and wheezing , no fevers, - partner sick patient also has the blood pressure problem. [facility]LY [facility] Medical History Tubular adenoma of colon Colon cancer screening Glaucoma Anxiety and depression Obesity (BMI 30-39.9) Vitamin D deficiency Hypertension Hypothyroid Peripheral vascular disease Fatty liver Surgical History Hx of colonoscopy History of breast mammoplasty History of cholecystectomy History of tubal ligation Family History Father CVA (cerebrovascular accident due to intracerebral hemorrhage) Stroke Mother No problems noted. Sister Depression Son Drug abuse Brother CVA (cerebrovascular accident due to intracerebral hemorrhage) Social History Housing: House Alcohol intake: current Alcohol intake frequency: a few times a week Patient Tobacco Use Status: Never used Tobacco e-Cigarette/Vaping Use: Never Used Second Hand Smoke Exposure: No service: No Current occupational status: employed Cognitive needs: No Hearing needs: No Vision needs: Yes Questionnaire PHQ-9 Over the last 2 weeks, how often have you been bothered by any of the following problems? 1. Little interest or pleasure in doing things: not at all 2. Feeling down, depressed, or hopeless: not at all 3. Trouble falling or staying asleep, or sleeping too much: not at all 4. Feeling tired or having little energy: not at all 5. Poor appetite or overeating: not at all 6. Feeling bad about yourself - or that you are a failure or have let yourself or your family down: not at all 7. Trouble concentrating on things, such as reading the newspaper or watching television: not at all 8. Moving or speaking so slowly that other people could have noticed. Or the opposite - being so fidgety or restless that you have been moving around a lot more than usual: not at all 9. Thoughts that you would be better off or of hurting yourself in some way: not at all Total score: 0 Depression Screening Interpretation: Negative Depression Screening Done: Yes Source: Developed by Drs. Inocencio Hernandez, Trini Calle, Maximilian Conway and colleagues, with an educational denise from [employer]. Thrive Questionnaire Date Thrive assessed: 08/06/22 AUDIT C Alcohol Use Questionnaire (AUDIT-C) 1. How often do you have a drink containing alcohol?: 2-3 times a week 2. How many drinks containing alcohol do you have on a typical day when you are drinking?: 3 or 4 3. How often do you have six or more drinks on one occasion?: Never Total Score: 4 DANI-7 AMB Questionnaire DANI-7 Date DANI - 7 assessed: 08/06/22 Source: Developed by Drs. Inocencio Hernandez, Trini Calle, Maximilian Conway and colleagues, with an educational denise from [employer]. Physical exam (Primary Care) Vital Signs: Last Vital Signs Pulse 75 04/15/23 15:13 BP 142/92 H 04/15/23 15:13 Pulse Ox 99 04/15/23 15:13 Oxygen Delivery Method Room Air 04/15/23 15:13 BMI result Body Mass Index 37.8 Tobacco/Smoking Status: Tobacco use Status Tobacco use date assessed 08/06/22 04/15/23 15:18 Patient Tobacco Use Status Never used Tobacco 04/15/23 15:18 e-Cigarette/Vaping Use Never Used 04/15/23 15:18 PHQ-9: PHQ-9 Score PHQ-9: Total score 0 04/15/23 15:18 Depression Screening Interpretation: Negative Thrive Assessment: Date of Thrive Assessment Date Thrive assessed 08/06/22 04/15/23 15:18 Const General: alert; No acute distress Eyes Conjunctivae: conjunctivae normal Resp Auscultation: clear to auscultation bilaterally Cardio Rate: regular rate Rhythm: regular rhythm GI Inspection: Yes normal to inspection Extrem General: Yes normal to inspection and No edema Assessment and Plan Assessment & Plan (1) Hypothyroid: Code(s): E03.9 - Hypothyroidism, unspecified Qualifiers: Hypothyroidism type: acquired Qualified Code(s): E03.9 - Hypothyroidism, unspecified Plan: Patient was reminded to take the medication religiously and retest the blood work in 6 weeks (2) Hypertension: Code(s): I10 - Essential (primary) hypertension Qualifiers: Hypertension type: essential hypertension Qualified Code(s): I10 - Essential (primary) hypertension Plan: Continue with blood pressure medication. Decrease salt intake and exercise patient takes hydrochlorothiazide 25 mg once a day. With blood pressure not controlled medication adjustment (3) Obesity (BMI 30-39.9): Code(s): E66.9 - Obesity, unspecified Plan: Diet and exercise (4) Impaired glucose tolerance: Code(s): R73.02 - Impaired glucose tolerance (oral) Plan: Decrease the amount of carbohydrate intake, pasta, bread, rice and potatoes are all sugar and that is aside from all the sweet stuff, remember that fruits are good but they are Sweet also. (5) Fatty liver: Code(s): K76.0 - Fatty (change of) liver, not elsewhere classified Plan: Low-fat diet and exercise (6) Generalized anxiety disorder: Code(s): F41.1 - Generalized anxiety disorder Plan: Keep active keep well hydrated. (7) Allergic asthma: Code(s): J45.909 - Unspecified asthma, uncomplicated (8) Hypercholesterolemia: Code(s): E78.00 - Pure hypercholesterolemia, unspecified Plan: Avoid fried foods, chicken skin, eggs, butter margarine, pastries and meat. Be it pork or beef they have a lot of cholesterol LDL goal of less than 130 and triglyceride of less than 150 Orders: Orders Comprehensive Met. Panel 2 Months I10 - Essential (primary) hypertension XR chest 2V 1 Week J45.909 - Unspecified asthma, uncomplicated Medications: New lisinopril-hydrochlorothiazide 10-12.5 mg 1 tab PO DAILY 30 tabs 2RF I10 - Essential (primary) hypertension albuterol sulfate 90 mcg/actuation (Ventolin HFA) 2 puffs inhalation Q6H PRN 8.5 grams 0RF shortness of breath or wheezing J45.909 - Unspecified asthma, uncomplicated fexofenadine (Carolyn Allergy) 180 mg PO DAILY 30 tabs 2RF J45.909 - Unspecified asthma, uncomplicated Discontinued hydrochlorothiazide Discontinued Reason: Ancillary Entered New Order 25 mg PO DAILY 90 tabs 2RF Coding Level of Care Code Est Pt Level 4 (67288) Diagnoses Acquired hypothyroidism E03.9 Hypothyroidism type: acquired Essential hypertension I10 Hypertension type: essential hypertension Obesity (BMI 30-39.9) E66.9 Impaired glucose tolerance R73.02 Fatty liver K76.0 Generalized anxiety disorder F41.1 Allergic asthma J45.909 Hypercholesterolemia E78.00
== END 2023-04-15 15:40 | disposition home or self-care (01) ==
PROVIDERS: PCP Internal Medicine; Visit Provider Internal Medicine
DX: E03.9 Hypothyroidism, unspecified (principal); I10 Essential (primary) hypertension; R73.02 Impaired glucose tolerance (oral); K76.0 Fatty (change of) liver, not elsewhere classified; F41.1 Generalized anxiety disorder; J45.909 Unspecified asthma, uncomplicated; E78.00 Pure hypercholesterolemia, unspecified
CPT/HCPCS: 99214

== ENCOUNTER 2023-10-16 08:09 | Outpatient (REF) | payer OTHER, SELFPAY ==
[2023-10-16 12:35] LABS: Alanine Aminotransferase 369 U/L (0-31); Alkaline Phosphatase 142 U/L (39-117); Anion Gap 14 (12-20); Aspartate Amino Transferase 168 U/L (5-31); Bilirubin Total 0.5 mg/dL (0.0-1.0); Blood Urea Nitrogen 12 mg/dL (9-16); Calcium 9.3 mg/dL (8.4-10.2); Carbon Dioxide 23 mmol/L (22-29); Chloride 108 mmol/L (96-108); Estimated Glomerular Filt Rate > 60; Free T4 (Free Thyroxine) 1.12 ng/dL (0.71-1.85); Glucose Random 114 mg/dL (60-115); Potassium 3.7 mmol/L (3.3-5.1); Sodium 141 mmol/L (135-145); Thyroid Stimulating Hormone 0.93 uIU/mL (0.32-4.0); Total Protein 6.9 g/dL (6.5-8.0)
== END 2023-10-16 08:10 | disposition home or self-care (01) ==
LOC: HO.10HDL 08:09
PROVIDERS: Visit Provider Internal Medicine
DX: I10 Essential (primary) hypertension (principal); E03.9 Hypothyroidism, unspecified
CPT/HCPCS: 36415; 80053; 84439; 84443

== ENCOUNTER 2023-10-16 11:04 | Outpatient (AMB) | payer OTHER, SELFPAY ==
[2023-10-16 11:05] VITALS: BP 176/104; PULSE 80; O2SAT 98; BMI 37.1
--- NOTE | 2023-10-16 11:05 | MHC.PC.OV ---
Vital Signs 10/16/23 11:05 10/16/23 11:22 Height 5 ft 4 in Weight 216 lb BMI 37.1 BP 176/104 H 146/80 H Blood Pressure Location Lt brachial Lt brachial Position Sitting Sitting Pulse 80 Pulse Source Pulse Oximeter Pulse Oximetry (%) 98 Oxygen Delivery Method Room Air Intake Visit Reasons: HTN, hypothryoid, cough Certified [employer] Engineer Required: No Termite Control Representative: Not Required per policy Accompanied by: Self / Same As Patient Allergies No Known Allergies [No Known Allergies*] Allergy (Verified 10/16/23 11:05) Tobacco use date assessed: 10/16/23 Dental Screening Dental Screen Date: 10/16/23 Did you have a dental visit in the last 12 months?: Yes Did you have a dental problem in the last 6 months where you did not have access to dental care?: No Was dental information given to patient?: Patient has dentist HPI HTN, hypothryoid, cough HPI Details 58-year-old obese female with hypothyroid hypertension impaired glucose tolerance fatty liver generalized anxiety disorder asthma and hypercholesterolemia last seen in April 2023. Patient's colonoscopy is up-to-date February 2023 mammogram is up-to-date March 2023. Patient has not been using the inhaler. As for the blood work just had it this morning. Results pending [facility]LY [facility] Medical History Tubular adenoma of colon Colon cancer screening Glaucoma Anxiety and depression Obesity (BMI 30-39.9) Vitamin D deficiency Hypertension Hypothyroid Peripheral vascular disease Fatty liver Surgical History Hx of colonoscopy History of breast mammoplasty History of cholecystectomy History of tubal ligation Family History Father CVA (cerebrovascular accident due to intracerebral hemorrhage) Stroke Mother No problems noted. Sister Depression Son Drug abuse Brother CVA (cerebrovascular accident due to intracerebral hemorrhage) Social History Housing: House Alcohol intake: current Alcohol intake frequency: a few times a week Patient Tobacco Use Status: Never used Tobacco e-Cigarette/Vaping Use: Never Used Second Hand Smoke Exposure: No service: No Current occupational status: employed Cognitive needs: No Hearing needs: No Vision needs: Yes Questionnaire PHQ-9 Over the last 2 weeks, how often have you been bothered by any of the following problems? 1. Little interest or pleasure in doing things: not at all 2. Feeling down, depressed, or hopeless: not at all 3. Trouble falling or staying asleep, or sleeping too much: not at all 4. Feeling tired or having little energy: not at all 5. Poor appetite or overeating: not at all 6. Feeling bad about yourself - or that you are a failure or have let yourself or your family down: not at all 7. Trouble concentrating on things, such as reading the newspaper or watching television: not at all 8. Moving or speaking so slowly that other people could have noticed. Or the opposite - being so fidgety or restless that you have been moving around a lot more than usual: not at all 9. Thoughts that you would be better off or of hurting yourself in some way: not at all Total score: 0 Depression Screening Interpretation: Negative Depression Screening Done: Yes Source: Developed by Drs. Inocencio Hernandez, Trini Calle, Maximilian Conway and colleagues, with an educational denise from [employer] Thrive Questionnaire Date Thrive assessed: 10/16/23 I am a: Patient What is your living situation today?: I have a steady place to live Within the past 12 months, did the food you bought not last and you didn't have the money to get more?: Never true Within the past 12 months, did you worry whether your food would run out before you got money to buy more?: Never true Do you have trouble paying for medicines?: No Do you have trouble getting transportation to medical appointments?: No Do you have trouble paying your heating and electricity bill?: No Do you have trouble taking care of your child, family member or friend?: No Do you have trouble with day-to-day activities such as bathing, preparing meals, shopping, managing finances, etc.?: No Are you currently unemployed and looking for a job?: No Are you interested in more education?: No Please select the resources that you would like help with: None THRIVE Score: 0 AUDIT C Alcohol Use Questionnaire (AUDIT-C) 1. How often do you have a drink containing alcohol?: 2-3 times a week 2. How many drinks containing alcohol do you have on a typical day when you are drinking?: 3 or 4 3. How often do you have six or more drinks on one occasion?: Never Total Score: 4 DANI-7 AMB Questionnaire DANI-7 Date DANI - 7 assessed: 10/16/23 Feeling nervous, anxious, or on edge: 0 = Not at all Not being able to stop or control worryin = Not at all Worrying too much about different things: 0 = Not at all Trouble relaxin = Not at all Being so restless that it is hard to sit still: 0 = Not at all Becoming easily annoyed or irritable: 0 = Not at all Feeling afraid as if something awful might happen: 0 = Not at all Total DANI-7 score (0-4 normal; 5-9 mild; 10-14 moderate; 15-21 severe): 0 Source: Developed by Drs. Inocencio Hernandez, Trini Calle, Maximilian Conway and colleagues, with an educational denise from [employer] Physical exam (Primary Care) Vital Signs: Last Vital Signs Pulse 80 10/16/23 11:05 BP 176/104 H 10/16/23 11:05 Pulse Ox 98 10/16/23 11:05 Oxygen Delivery Method Room Air 10/16/23 11:05 BMI result Body Mass Index 37.1 Tobacco/Smoking Status: Tobacco use Status Tobacco use date assessed 10/16/23 10/16/23 11:06 Patient Tobacco Use Status Never used Tobacco 10/16/23 11:06 e-Cigarette/Vaping Use Never Used 10/16/23 11:06 PHQ-9: PHQ-9 Score PHQ-9: Total score 0 10/16/23 11:06 Depression Screening Interpretation: Negative Thrive Assessment: Date of Thrive Assessment Date Thrive assessed 10/16/23 10/16/23 11:06 Const General: alert; No acute distress Eyes Conjunctivae: conjunctivae normal Resp Auscultation: clear to auscultation bilaterally Cardio Rate: regular rate Rhythm: regular rhythm GI Inspection: Yes normal to inspection Extrem General: Yes normal to inspection and No edema Assessment and Plan Assessment & Plan (1) Hypothyroid: Code(s): E03.9 - Hypothyroidism, unspecified Qualifiers: Hypothyroidism type: acquired Qualified Code(s): E03.9 - Hypothyroidism, unspecified Plan: Presently on levothyroxine 175 mcg once a day patient's blood work needs to be repeated. . Patient just had blood work done today results not in (2) Hypertension: Code(s): I10 - Essential (primary) hypertension Qualifiers: Hypertension type: essential hypertension Qualified Code(s): I10 - Essential (primary) hypertension Plan: Continue with blood pressure medication. Decrease salt intake and exercise on lisinopril hydrochlorothiazide 10/12.5 once a day. Discussed with the patient that the blood pressure remains to be elevated advised to increase lisinopril hydrochlorothiazide to twice a day (3) Obesity (BMI 30-39.9): Code(s): E66.9 - Obesity, unspecified Plan: Diet and exercise (4) Impaired glucose tolerance: Code(s): R73.02 - Impaired glucose tolerance (oral) Plan: Decrease the amount of carbohydrate intake, pasta, bread, rice and potatoes are all sugar and that is aside from all the sweet stuff, remember that fruits are good but they are Sweet also. (5) Fatty liver: Code(s): K76.0 - Fatty (change of) liver, not elsewhere classified Plan: Low-fat diet and exercise (6) Generalized anxiety disorder: Code(s): F41.1 - Generalized anxiety disorder Plan: Stable (7) Allergic asthma: Code(s): J45.909 - Unspecified asthma, uncomplicated Plan: Presently on albuterol inhaler and stable had been using as needed and has not been using the inhaler. (8) Hypercholesterolemia: Code(s): E78.00 - Pure hypercholesterolemia, unspecified Plan: Avoid fried foods, chicken skin, eggs, butter margarine, pastries and meat. Be it pork or beef they have a lot of cholesterol LDL goal of less than 130 and triglyceride of less than 150. Orders: Orders Hemoglobin A1c Today R73.02 - Impaired glucose tolerance (oral) Lipid Panel Today E78.00 - Pure hypercholesterolemia, unspecified Medications: Changed From lisinopril-hydrochlorothiazide 10-12.5 mg 1 tab PO DAILY 90 tabs 0RF I10 - Essential (primary) hypertension To lisinopril-hydrochlorothiazide 10-12.5 mg 1 tab PO BID 180 tabs 0RF I10 - Essential (primary) hypertension Coding Level of Care Code Est Pt Level 4 (65720) Diagnoses Acquired hypothyroidism E03.9 Hypothyroidism type: acquired Essential hypertension I10 Hypertension type: essential hypertension Obesity (BMI 30-39.9) E66.9 Impaired glucose tolerance R73.02 Fatty liver K76.0 Generalized anxiety disorder F41.1 Allergic asthma J45.909 Hypercholesterolemia E78.00
[2023-10-16 11:22] VITALS: BP 146/80
== END 2023-10-16 11:27 | disposition home or self-care (01) ==
PROVIDERS: PCP Internal Medicine; Visit Provider Internal Medicine
DX: E03.9 Hypothyroidism, unspecified (principal); I10 Essential (primary) hypertension; E66.9 Obesity, unspecified; Z68.37 Body mass index [BMI] 37.0-37.9, adult; R73.02 Impaired glucose tolerance (oral); K76.0 Fatty (change of) liver, not elsewhere classified; F41.1 Generalized anxiety disorder; J45.909 Unspecified asthma, uncomplicated; E78.00 Pure hypercholesterolemia, unspecified
CPT/HCPCS: 99214

== ENCOUNTER 2023-10-17 09:52 | Outpatient (REF) | payer OTHER, SELFPAY ==
--- NOTE | ~2023-10-17 | US_ITS ---
EXAMINATION: US ABDOMEN COMPLETE CLINICAL INFORMATION: Abnormal blood chemistry. COMPARISON: Abdominal ultrasound 01/01/2010 TECHNIQUE: Real-time imaging of the abdominal viscera. FINDINGS: PANCREAS: Normal. ABDOMINAL AORTA: The proximal, mid, and distal segments are normal in caliber. INFERIOR VENA CAVA: Visualized portions are normal. LIVER: The liver is normal in size. The liver contour is normal. There is diffuse increased liver parenchymal echogenicity, consistent with hepatic steatosis. Cyst in the left lobe measuring 0.7 x 0.7 x 0.7 cm. Focal calcification in the right lobe measuring 0.7 x 0.6 x 0.6 cm. There is no intrahepatic biliary duct dilatation seen. GALLBLADDER: Normal. The gallbladder is physiologically distended without evidence of stones, sludge, polyps, wall thickening or pericholecystic fluid. COMMON BILE DUCT: Normal in caliber measuring 0.9 cm in diameter. RIGHT KIDNEY: Normal. No hydronephrosis. No renal calculi or focal parenchymal lesions. The kidney measures 11.2 cm in maximum dimension. LEFT KIDNEY: Normal. No hydronephrosis. No renal calculi or focal parenchymal lesions. The kidney measures 10.2 cm in maximum dimension. SPLEEN: Normal. The spleen measures 10.7 cm in maximum dimension. FREE FLUID: None. US/US abdomen complete IMPRESSION: Diffusely increased hepatic echogenicity, with hepatic steatosis.
== END 2023-10-17 09:53 | disposition home or self-care (01) ==
LOC: HO.US 09:52
PROVIDERS: PCP Internal Medicine; Visit Provider Internal Medicine
DX: R79.89 Other specified abnormal findings of blood chemistry (principal); K76.0 Fatty (change of) liver, not elsewhere classified
CPT/HCPCS: 76700

== ENCOUNTER 2024-03-11 09:53 | Outpatient (AMB) | payer OTHER, SELFPAY ==
[2024-03-11 09:55] VITALS: BP 140/86; PULSE 63; O2SAT 98; BMI 37.8
--- NOTE | 2024-03-11 09:55 | MHC.PC.OV ---
Vital Signs 03/11/24 09:55 Height 5 ft 4 in Weight 220 lb BMI 37.8 BP 140/86 H Blood Pressure Location Lt brachial Position Sitting Pulse 63 Pulse Source Pulse Oximeter Pulse Oximetry (%) 98 Oxygen Delivery Method Room Air Intake Visit Reasons: HTN, Hypercholesterol, hypothryoid Special Investigation Unit Investigator Required: No Accompanied by: Self / Same As Patient Allergies lisinopril Adverse Reaction (Intermediate, Verified 03/11/24 10:00) Cough Tobacco use date assessed: 10/16/23 Dental Screening Dental Screen Date: 10/16/23 HPI HTN, Hypercholesterol, hypothryoid HPI Details 58-year-old obese female with a history of hypothyroidism hypertension impaired glucose tolerance fatty liver generalized anxiety disorder asthma and hypercholesterolemia last seen in October 2023. Patient's colonoscopy is up-to-date 2022 mammogram is due. Review of the notes liver ultrasound in October showing hepatic steatosis. 2x a month 3 drink. Discussed with the patient regarding the blood work that was done in October that needs to be repeated. Patient does have hypercholesterolemia also complains about having hair loss and with the problem of hypothyroidism will need repeat testing. Patient also complains of snoring a lot and wakes her up on nighttime. She does sleeps and get sleepy during noon time. Concern about the blood pressure concern about the weight concern about the problem for sleep. [facility] Medical History (Updated 03/11/24 @ 10:22 by Johnathan Zayas MD) Visual problems COVID-19 virus infection Plantar fasciitis of left foot Meralgia paresthetica of left side Hearing deficit Tubular adenoma of colon Colon cancer screening Glaucoma Anxiety and depression Obesity (BMI 30-39.9) Vitamin D deficiency Hypertension Hypothyroid Peripheral vascular disease Fatty liver Surgical History Hx of colonoscopy History of breast mammoplasty History of cholecystectomy History of tubal ligation Family History Father CVA (cerebrovascular accident due to intracerebral hemorrhage) Stroke Mother No problems noted. Sister Depression Son Drug abuse Brother CVA (cerebrovascular accident due to intracerebral hemorrhage) Social History Housing: House Alcohol intake: current Alcohol intake frequency: a few times a week Patient Tobacco Use Status: Never used Tobacco e-Cigarette/Vaping Use: Never Used Second Hand Smoke Exposure: No service: No Current occupational status: employed Current occupational exposures/hazards: No Cognitive needs: No Hearing needs: No Vision needs: Yes Questionnaire Thrive Questionnaire Date Thrive assessed: 10/16/23 Are you currently unemployed and looking for a job?: No AUDIT C Alcohol Use Questionnaire (AUDIT-C) 2. How many drinks containing alcohol do you have on a typical day when you are drinking?: 3 or 4 3. How often do you have six or more drinks on one occasion?: Weekly Total Score: 4 DANI-7 AMB Questionnaire DANI-7 Date DANI - 7 assessed: 10/16/23 Source: Developed by Drs. Inocencio Hernandez, Trini Calle, Maximilian Conway and colleagues, with an educational denise from [employer]. Physical exam (Primary Care) Vital Signs: Last Vital Signs Pulse 63 03/11/24 09:55 BP 140/86 H 03/11/24 09:55 Pulse Ox 98 03/11/24 09:55 Oxygen Delivery Method Room Air 03/11/24 09:55 BMI result Body Mass Index 37.8 Tobacco/Smoking Status: Tobacco use Status Tobacco use date assessed 10/16/23 03/11/24 09:57 Patient Tobacco Use Status Never used Tobacco 03/11/24 09:57 e-Cigarette/Vaping Use Never Used 03/11/24 09:57 Thrive Assessment: Date of Thrive Assessment Date Thrive assessed 10/16/23 03/11/24 09:57 Const General: alert; No acute distress Eyes Conjunctivae: conjunctivae normal Resp Auscultation: clear to auscultation bilaterally Cardio Rate: regular rate Rhythm: regular rhythm GI Inspection: Yes normal to inspection Extrem General: Yes normal to inspection and No edema Office Procedures Flu Questionnaire Does the patient have a severe egg allergy?: No Immunizations Fluarix Triv [id number] (PF) 45 mcg (15 mcg x 3)/0.5 mL IM syringe Performing Provider: Johnathan Zayas MD [facility] [place] [facility] Documented (not given) by: MARTIN Avery on 03/11/24 09:58 Reason Not Given: Not Given Coding Level of Care Code Est Pt Level 4 (02666) Diagnoses Essential hypertension I10 Hypertension type: essential hypertension Acquired hypothyroidism E03.9 Hypothyroidism type: acquired Fatty liver K76.0 Impaired glucose tolerance R73.02 Obesity (BMI 30-39.9) E66.9 Generalized anxiety disorder F41.1 Breast cancer screening by mammogram Z. Hypercholesterolemia E78.00 Hypersomnia G47.10 Assessment & Plan Assessment & Plan (1) Hypertension: Code(s): I10 - Essential (primary) hypertension Category: Medical Qualifiers: Hypertension type: essential hypertension Qualified Code(s): I10 - Essential (primary) hypertension Plan: Continue with blood pressure medication. Decrease salt intake and exercise patient is on losartan hydrochlorothiazide 50/12.5 mg once a day (2) Hypothyroid: Code(s): E03.9 - Hypothyroidism, unspecified Category: Medical Qualifiers: Hypothyroidism type: acquired Qualified Code(s): E03.9 - Hypothyroidism, unspecified Plan: Continue with thyroid medication (3) Fatty liver: Comment: October 2023 Code(s): K76.0 - Fatty (change of) liver, not elsewhere classified Category: Medical Plan: Low-fat diet and exercise will need repeat blood test (4) Impaired glucose tolerance: Code(s): R73.02 - Impaired glucose tolerance (oral) Category: Medical Plan: Decrease the amount of carbohydrate intake, pasta, bread, rice and potatoes are all sugar and that is aside from all the sweet stuff, remember that fruits are good but they are Sweet also. (5) Obesity (BMI 30-39.9): Code(s): E66.9 - Obesity, unspecified Category: Medical Plan: Diet and exercise (6) Generalized anxiety disorder: Code(s): F41.1 - Generalized anxiety disorder Category: Medical Plan: Stable (7) Breast cancer screening by mammogram: Code(s): Z12.31 - Encounter for screening mammogram for malignant neoplasm of breast Category: Medical Plan: Reminded about mammogram (8) Hypercholesterolemia: Code(s): E78.00 - Pure hypercholesterolemia, unspecified Category: Medical Plan: Avoid fried foods, chicken skin, eggs, butter margarine, pastries and meat. Be it pork or beef they have a lot of cholesterol (9) Hypersomnia: Code(s): G47.10 - Hypersomnia, unspecified Category: Medical Plan: Sleep study requested Orders: Orders Influenza [id number] Immunization Today Z23 - Encounter for immunization Complete Blood Count Auto Diff Today K76.0 - Fatty (change of) liver, not elsewhere classified Lipid Panel Today E78.00 - Pure hypercholesterolemia, unspecified, K76.0 - Fatty (change of) liver, not elsewhere classified Free T4 (Free Thyroxine) Today K76.0 - Fatty (change of) liver, not elsewhere classified RT home sleep study Today G47.10 - Hypersomnia, unspecified Comprehensive Met. Panel Today K76.0 - Fatty (change of) liver, not elsewhere classified Hemoglobin A1c Today K76.0 - Fatty (change of) liver, not elsewhere classified Thyroid Stimulating Hormone Today K76.0 - Fatty (change of) liver, not elsewhere classified Medications: New losartan-hydrochlorothiazide 100-12.5 mg 1 tab PO DAILY 30 tabs 3RF I10 - Essential (primary) hypertension Discontinued losartan-hydrochlorothiazide 50-12.5 mg Discontinued Reason: Doctor's Order 1 tab PO DAILY 30 tabs 1RF
== END 2024-03-11 10:33 | disposition home or self-care (01) ==
PROVIDERS: PCP Internal Medicine; Visit Provider Internal Medicine
DX: I10 Essential (primary) hypertension (principal); E66.812 Obesity, class 2; Z68.37 Body mass index [BMI] 37.0-37.9, adult; E03.9 Hypothyroidism, unspecified; K76.0 Fatty (change of) liver, not elsewhere classified; R73.02 Impaired glucose tolerance (oral); F41.1 Generalized anxiety disorder; Z12.31 Encounter for screening mammogram for malignant neoplasm of breast; E78.00 Pure hypercholesterolemia, unspecified; G47.10 Hypersomnia, unspecified; Z23 Encounter for immunization

== ENCOUNTER → 2024-03-11 09:53 | Outpatient (BNVA) | payer OTHER, SELFPAY | PROVIDERS: PCP Internal Medicine; Visit Provider Internal Medicine | DX: I10 Essential (primary) hypertension (principal); E03.9 Hypothyroidism, unspecified; K76.0 Fatty (change of) liver, not elsewhere classified; R73.02 Impaired glucose tolerance (oral); E66.9 Obesity, unspecified; Z68.37 Body mass index [BMI] 37.0-37.9, adult; F41.1 Generalized anxiety disorder; E78.00 Pure hypercholesterolemia, unspecified; G47.10 Hypersomnia, unspecified; Z79.899 Other long term (current) drug therapy; Z28.21 Immunization not carried out because of patient refusal | CPT/HCPCS: 90471 ==

== ENCOUNTER → 2024-03-25 13:54 | Outpatient (BNVA) | payer OTHER, SELFPAY | PROVIDERS: PCP Internal Medicine ==

== ENCOUNTER 2024-04-03 07:33 | Outpatient (REF) | payer OTHER, SELFPAY ==
--- NOTE | ~2024-04-03 | MM_ITS ---
EXAMINATION: MM SCREENING DIGITAL BREAST TOMOSYNTHESIS, BILATERAL CLINICAL INFORMATION: Screening. Asymptomatic. COMPARISON: Mammography: Comparison is made with available priors TECHNIQUE: Digital breast mammography with tomosynthesis is performed in both the craniocaudal and mediolateral oblique views along with computer-aided detection (CAD). FINDINGS: There are scattered areas of fibroglandular density (ACR BI-RADS breast composition Category b). Bilateral reduction mammoplasty. There are no significant masses, abnormal calcifications, or other abnormalities. MM/MM tomosynthesis screening BI IMPRESSION: No mammographic evidence of malignancy. ASSESSMENT: BI-RADS BI-RADS 2 - Benign Findings RECOMMENDATION: Routine annual mammography screening. 1 year F/U This examination should not preclude the clinical evaluation of a suspicious palpable abnormality. This patient's information was entered into a reminder system with a target due date for their next mammogram. Electronically signed by: Cony Azevedo DO 04/12/2024 08:51 AM JOSE CARLOS
== END 2024-04-03 07:34 | disposition home or self-care (01) ==
LOC: HO.MAMMO 07:33
PROVIDERS: PCP Internal Medicine; Visit Provider Internal Medicine
DX: Z12.31 Encounter for screening mammogram for malignant neoplasm of breast (principal)
CPT/HCPCS: 77063; 77067

== ENCOUNTER → 2024-04-03 07:45 | Outpatient (BNV) | payer OTHER, SELFPAY | PROVIDERS: PCP Internal Medicine; Visit Provider Internal Medicine | DX: Z12.31 Encounter for screening mammogram for malignant neoplasm of breast (principal) | CPT/HCPCS: 77063; 77067 ==

== ENCOUNTER → 2024-05-04 15:52 | Outpatient (REF) | payer OTHER, SELFPAY | LOC: HO.SL 15:52 | PROVIDERS: PCP Internal Medicine; Visit Provider Internal Medicine | DX: G47.10 Hypersomnia, unspecified (principal) | CPT/HCPCS: 95806 ==

== ENCOUNTER → 2024-05-04 16:14 | Outpatient (BNV) | payer OTHER, SELFPAY | PROVIDERS: PCP Internal Medicine; Visit Provider Internal Medicine | DX: G47.33 Obstructive sleep apnea (adult) (pediatric) (principal) | CPT/HCPCS: 95806 ==

== ENCOUNTER 2024-07-01 09:36 | Outpatient (REF) | payer OTHER, SELFPAY ==
[2024-07-01 10:06] LABS: MANUAL DIFF FLAG NO
[2024-07-01 10:29] LABS: Basophils Absolute Auto 0.1 X10*3/uL (0.0-0.2); Basophils Percent Auto 0.9 % (0-2); Eosinophils Absolute Auto 0.2 X10*3/uL (0.0-0.4); Hematocrit 40.8 % (37.0-47.0); Hemoglobin 13.3 g/dl (12.0-16.0); Imm Gran Abs Auto 0.01 X10*3/uL (0.00-0.03); Imm Gran Pct Auto 0.2 % (0.0-0.4); Lymphocytes Absolute Auto 2.1 X10*3/uL (1.2-4.9); Lymphocytes Percent Auto 38.9 % (20-40); Mean Corpuscular HGB Conc 32.6 g/dl (31.0-35.0); Mean Corpuscular Hemoglobin 29.4 pg (27.0-33.0); Mean Corpuscular Volume 90.3 fL (80.0-98.0); Mean Platelet Volume 9.8 fL (9.4-12.3); Monocytes Absolute Auto 0.4 X10*3/uL (0.1-1.2); Monocytes Percent Auto 7.4 % (2-11); Neutrophils Absolute Auto 2.6 x10*3/uL (2.0-8.3); Neutrophils Percent Auto 48.6 % (45-73); Platelet Count 281 X10*3/uL (160-400); Red Blood Count 4.52 X10*6/uL (4.20-5.50); Red Cell Distribution Width 12.6 % (11.0-16.0); White Blood Count 5.3 X10*3/uL (4.8-10.8)
[2024-07-01 10:32] LABS: Estimated Average Glucose 117 mg/dL; Hemoglobin A1c % 5.7 % (<6.0); Total Hemoglobin (HGBA1C) 3497.3502 umol/L
[2024-07-01 11:15] LABS: Albumin Level 4.3 g/dL (3.5-5.0); Alkaline Phosphatase 89 U/L (39-117); Anion Gap 8 (12-20); Aspartate Amino Transferase 44 U/L (5-31); Bilirubin Total 0.8 mg/dL (0.0-1.0); Blood Urea Nitrogen 15 mg/dL (9-16); Calcium 9.9 mg/dL (8.4-10.2); Carbon Dioxide 29 mmol/L (22-29); Chloride 109 mmol/L (96-108); Cholesterol 186 mg/dL (<200); Estimated Glomerular Filt Rate > 60; Free T4 (Free Thyroxine) 0.88 ng/dL (0.71-1.85); Glucose Random 99 mg/dL (60-115); HDL Cholesterol 52 mg/dL (>40); LDL Cholesterol Calculated 118 mg/dL (<100); Potassium 4.2 mmol/L (3.3-5.1); Sodium 142 mmol/L (135-145); Thyroid Stimulating Hormone 20.09 uIU/mL (0.32-4.0); Total Protein 7.2 g/dL (6.5-8.0); Triglycerides 83 mg/dL (<150)
[2024-07-01 11:20] LABS: Alanine Aminotransferase 66 U/L (0-31)
== END 2024-07-01 09:37 | disposition home or self-care (01) ==
LOC: HO.LAB 09:36
PROVIDERS: PCP Internal Medicine; Visit Provider Internal Medicine
DX: K76.0 Fatty (change of) liver, not elsewhere classified (principal); E78.00 Pure hypercholesterolemia, unspecified; Z13.1 Encounter for screening for diabetes mellitus
CPT/HCPCS: 36415; 80053; 80061; 83036; 84439; 84443; 85025

== ENCOUNTER 2024-07-01 14:02 | Outpatient (AMB) | payer OTHER, SELFPAY ==
[2024-07-01 14:10] VITALS: BP 142/90; PULSE 76; O2SAT 99; BMI 38.1
--- NOTE | 2024-07-01 14:10 | MHC.PC.OV ---
Vital Signs 07/01/24 14:10 Height 5 ft 4 in Weight 222 lb BMI 38.1 BP 142/90 H Blood Pressure Location Lt brachial Position Sitting Pulse 76 Pulse Source Pulse Oximeter Pulse Oximetry (%) 99 Oxygen Delivery Method Room Air Intake Visit Reasons: HTN, LFT Intake Note: Patient here for a HTN, LFT Lidar Scientist Required: No Accompanied by: Self / Same As Patient Allergies lisinopril Adverse Reaction (Intermediate, Verified 07/01/24 14:12) Cough Tobacco use date assessed: 07/01/24 Dental Screening Dental Screen Date: 07/01/24 Did you have a dental visit in the last 12 months?: Yes Did you have a dental problem in the last 6 months where you did not have access to dental care?: No Was dental information given to patient?: Patient has dentist HPI HTN, LFT HPI Details The patient is a 58-year-old female presenting with a history of obstructive sleep apnea. She reports episodes of waking during sleep, which have been attributed to apnea due to airway obstruction. The patient has been informed of the need for Continuous Positive Airway Pressure (CPAP) therapy following a sleep study. Additionally, the patient has essential hypertension, which reportedly measures higher at home compared to clinic visits. She is currently on losartan but requires an additional antihypertensive medication for better control. The patient was informed that her hypertension could improve with the management of sleep apnea. Lab results indicate borderline Type 2 Diabetes Mellitus with a Hemoglobin A1c of 5.7%. The patient was counseled to reduce carbohydrate intake to prevent progression to diabetes. The patient has a history of fatty liver disease, which shows improvement but remains elevated at 44/66, with necessary efforts to reduce it further. Hypothyroidism was identified, with its current management plan requiring adjustment. The patient's thyroid-stimulating hormone (TSH) level is elevated at 20.09, necessitating an increase in levothyroxine dosage from 175 to 200 micrograms daily. [facility] Medical History (Updated 05/17/24 @ 09:07 by Johnathan Zayas MD) Visual problems COVID-19 virus infection Plantar fasciitis of left foot Meralgia paresthetica of left side Hearing deficit Tubular adenoma of colon Colon cancer screening Glaucoma Anxiety and depression Obesity (BMI 30-39.9) Vitamin D deficiency Hypertension Hypothyroid Peripheral vascular disease Fatty liver Surgical History Hx of colonoscopy History of breast mammoplasty History of cholecystectomy History of tubal ligation Family History Father CVA (cerebrovascular accident due to intracerebral hemorrhage) Stroke Mother No problems noted. Sister Depression Son Drug abuse Brother CVA (cerebrovascular accident due to intracerebral hemorrhage) Social History Housing: House Alcohol intake: current Alcohol intake frequency: a few times a week Patient Tobacco Use Status: Never used Tobacco e-Cigarette/Vaping Use: Never Used Second Hand Smoke Exposure: No service: No Current occupational status: employed Current occupational exposures/hazards: No Cognitive needs: No Hearing needs: No Vision needs: Yes Questionnaire PHQ-9 Over the last 2 weeks, how often have you been bothered by any of the following problems? 1. Little interest or pleasure in doing things: not at all 2. Feeling down, depressed, or hopeless: not at all 3. Trouble falling or staying asleep, or sleeping too much: not at all 4. Feeling tired or having little energy: not at all 5. Poor appetite or overeating: not at all 6. Feeling bad about yourself - or that you are a failure or have let yourself or your family down: not at all 7. Trouble concentrating on things, such as reading the newspaper or watching television: not at all 8. Moving or speaking so slowly that other people could have noticed. Or the opposite - being so fidgety or restless that you have been moving around a lot more than usual: not at all 9. Thoughts that you would be better off or of hurting yourself in some way: not at all Total score: 0 Depression Screening Interpretation: Negative Depression Screening Done: Yes Source: Developed by Drs. Inocencio Hernandez, Trini Calle, Maximilian Conway and colleagues, with an educational denise from [employer]. Thrive Questionnaire Date Thrive assessed: 07/01/24 I am a: Patient What is your living situation today?: I have a steady place to live Within the past 12 months, did the food you bought not last and you didn't have the money to get more?: Never true Within the past 12 months, did you worry whether your food would run out before you got money to buy more?: Never true Do you have trouble paying for medicines?: No Do you have trouble getting transportation to medical appointments?: No Do you have trouble paying your heating and electricity bill?: No Do you have trouble taking care of your child, family member or friend?: No Do you have trouble with day-to-day activities such as bathing, preparing meals, shopping, managing finances, etc.?: No Are you currently unemployed and looking for a job?: No Are you interested in more education?: No Please select the resources that you would like help with: None Currently or been in a relationship where the following occur: No concerns reported THRIVE Score: 0 AUDIT C Alcohol Use Questionnaire (AUDIT-C) 1. How often do you have a drink containing alcohol?: Monthly or less 2. How many drinks containing alcohol do you have on a typical day when you are drinking?: 5 or 6 3. How often do you have six or more drinks on one occasion?: Weekly Total Score: 6 DANI-7 AMB Questionnaire DANI-7 Date DANI - 7 assessed: 07/01/24 Feeling nervous, anxious, or on edge: 0 = Not at all Not being able to stop or control worryin = Not at all Worrying too much about different things: 0 = Not at all Trouble relaxin = Not at all Being so restless that it is hard to sit still: 0 = Not at all Becoming easily annoyed or irritable: 0 = Not at all Feeling afraid as if something awful might happen: 0 = Not at all Total DANI-7 score (0-4 normal; 5-9 mild; 10-14 moderate; 15-21 severe): 0 Source: Developed by Drs. Inocencio Hernandez, Trini Calle, Maximilian Conway and colleagues, with an educational denise from [employer]. Physical exam (Primary Care) Vital Signs: Last Vital Signs Pulse 76 07/01/24 14:10 BP 142/90 H 07/01/24 14:10 Pulse Ox 99 07/01/24 14:10 Oxygen Delivery Method Room Air 07/01/24 14:10 BMI result Body Mass Index 38.1 Tobacco/Smoking Status: Tobacco use Status Tobacco use date assessed 07/01/24 07/01/24 14:16 Patient Tobacco Use Status Never used Tobacco 07/01/24 14:16 e-Cigarette/Vaping Use Never Used 07/01/24 14:16 PHQ-9: PHQ-9 Score PHQ-9: Total score 0 07/01/24 15:18 Depression Screening Interpretation: Negative Thrive Assessment: Date of Thrive Assessment Date Thrive assessed 07/01/24 07/01/24 14:16 Currently or been in a relationship where the following occur: No concerns reported Const General: alert; No acute distress Eyes Conjunctivae: conjunctivae normal Resp Auscultation: clear to auscultation bilaterally Cardio Rate: regular rate Rhythm: regular rhythm GI Inspection: Yes normal to inspection Extrem General: Yes normal to inspection and No edema Coding Level of Care Code Est Pt Level 4 (59447) Complex EM visit Add On G2211 Diagnoses Obstructive sleep apnea G47.33 Fatty liver K76.0 Impaired glucose tolerance R73.02 Essential hypertension I10 Hypertension type: essential hypertension Acquired hypothyroidism E03.9 Hypothyroidism type: acquired Obesity (BMI 30-39.9) E66.9 Assessment & Plan Assessment & Plan (1) Obstructive sleep apnea: Comment: sleep study done May 2024 showing obstructive sleep apnea moderately severe AHI 25 the crease advise auto PAP mode 6-20 cm water Code(s): G47.33 - Obstructive sleep apnea (adult) (pediatric) Category: Medical (2) Fatty liver: Comment: October 2023 Code(s): K76.0 - Fatty (change of) liver, not elsewhere classified Category: Medical (3) Impaired glucose tolerance: Code(s): R73.02 - Impaired glucose tolerance (oral) Category: Medical (4) Hypertension: Code(s): I10 - Essential (primary) hypertension Category: Medical Qualifiers: Hypertension type: essential hypertension Qualified Code(s): I10 - Essential (primary) hypertension (5) Hypothyroid: Code(s): E03.9 - Hypothyroidism, unspecified Category: Medical Qualifiers: Hypothyroidism type: acquired Qualified Code(s): E03.9 - Hypothyroidism, unspecified (6) Obesity (BMI 30-39.9): Code(s): E66.9 - Obesity, unspecified Category: Medical Plan - Initiate CPAP therapy for obstructive sleep apnea to improve sleep quality and overall management of the condition. - Adjust antihypertensive regimen by adding amlodipine to the current losartan therapy for better blood pressure control. - Encourage dietary modifications to reduce carbohydrate intake and prevent the progression of borderline Type 2 Diabetes Mellitus. - Monitor liver function, considering improvement in fatty liver disease; continue supporting lifestyle modifications. - Increase levothyroxine dosage to 200 micrograms daily and re-evaluate TSH in six weeks to ensure adequate management of hypothyroidism. 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 - Schedule follow-up appointments for thyroid re-evaluation in six weeks and further review of blood pressure management in three months. Orders: Orders Thyroid Stimulating Hormone 6 Weeks E03.9 - Hypothyroidism, unspecified Free T4 (Free Thyroxine) 6 Weeks E03.9 - Hypothyroidism, unspecified Medications: New amlodipine 2.5 mg PO DAILY 30 tabs 3RF I10 - Essential (primary) hypertension Changed From Levoxyl (levothyroxine) 175 mcg PO DAILY 90 tabs 1RF NS E03.9 - Hypothyroidism, unspecified To levothyroxine 200 mcg PO DAILY 30 tabs 3RF E03.9 - Hypothyroidism, unspecified
--- OUTSIDE RECORDS SUMMARY | 2024-07-01 16:39 | XMS_ITS | Patient Health Record ---
[facility] Address [address] [place] [address] Care Team Providers Care Doll Repairer Name Role Phone Johnathan Zayas Primary Care Provider Yudi Boss Unavailable [phone] Allergies Allergen (clinical drug ingredient) Drug/Non Drug Allergy documented on EMR Reaction Allergy Type Onset Date Status Seasonal IC Unknown Drug Allergy Activ e Reason For Referral No Information Medications Medication SIG (Take, Route, Frequency, Duration) Notes Start Date End Date Status Levothyroxine Sodium 175 MCG 1 tablet in the morning on an empty stomach Orally Once a day Active hydroCHLOROthiazide 25 MG 1 tablet in morning Orally Once a day Active Vitamin D (Cholecalciferol) 50 MCG (1999) 1 capsule Orally Once a day Active Social History Tobacco Use: Social History Observation Description Date Details (start date - stop date) Never Smoker NA - NA Tobacco Use/Smoking Question Answer Notes Are you a: nonsmoker Additional Findings: Tobacco Non-User Current no n-smoker Alcohol Screen Question Answer Notes Did you have a drink contain ing alcohol in the past year? Yes How often did you have a dri nk containing alcohol in the past year? 4 or more times a week (4 points) Points 4 Interpretation Positive Tobacco use other than smoking: Question Answer Notes Are you an other tobacco user? No Plan Of Treatment Pending Test Test Name Order Date X ray : Foot, left 3V 10/01/2022 [id number] TENDON SHEATH/LIGAMENT 0 10/01/2022 Insurance Providers Payer Name Payer Address Payer Phone Subscriber Number Group Number Insured Name Patient Relationship to Insured Coverage Start Date Coverage End Date [facility] [address] [facility] [place], [place] [id number] Esha Freire Self - patient is the insured Medical (General) History Medical History History ICD Code High blood pressure thyroid Chicken pox Surgical History Surgery Date(Month/Year)
--- OUTSIDE RECORDS SUMMARY | 2024-07-01 16:39 | XMS_ITS | Continuity of Care Document ---
Author Organization [facility] [employer] Address [address] [place] [address] Phone Care Team Providers Care Chocolatier Name Role Phone Nursing, Visit Unavailable Unavailable [...] CALL 5-10 MIN OFFICE/VISIT, EST ROUTINE VENIPUNCTURE [id number], DNA (Q) OFFICE/VISIT, EST OFFICE/VISIT, EST ROUTINE VENIPUNCTURE [id number]- Hep C W/Reflex (P) [id number] A1C (P) [id number] T4 (P) [id number] (P) [id number] Panel (P) PREV VISIT, NEW, AGE 12-17 ROUTINE VENIPUNCTURE [id number]/CT (P) [id number] A1C (P) [id number]- HIV 1/2 AG & AB 4TH GENERATION (P) [id number] Panel (P) [id number] (P) F.I.T KIT GIVEN OFFICE/OUTPATIENT VISIT, NEW [id number] - Thin Prep W/ Reflex To HPV (P ) Colon Rectal Cancer Screening 7 Colon Rectal Cancer Screening Advance Directives Directive Yes / No Effective Date File Name No Information Encounters Encounter Description Practice Location Reason(s) For Visit Diagnoses Date Provider Providers Copied on Encounter [facility] n, [address] [place], [address], tel:[phone] [facility] No Information 8 Nursing Visit. [address], [place], [id number], . 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 [address], [place], [id number], [place]. tel:[phone] OFFICE/VISIT , [facility] n, [address] [place], [address], [place] tel:[phone] [facility] Flu-like symptoms (chief complaint) Sore throat 8 No Information OFFICE/VISIT , [facility] n, [address] [place], [address], [place] tel:[phone] [facility] f/U LABS (chief complaint) Reflux gastritisHIV antibody positive 8 No Information OFFICE/VISIT , [facility] n, [address] [place], [address], [place] tel:[phone] [facility] reflux (chief complaint) weight loss (chief complaint) PrediabetesReflux gastritisWeight loss, unintentionalSoft tissue swelling of back 8 No Information PREV VISIT, NEW, AGE 12-17 [facility] n, [address], [place], [address], [place] tel:[phone] [facility] Colitis - LUQ pain (chief complaint) PE (physical exam), routineChronic GERD 7 No Information OFFICE/OUTPA TIENT VISIT, NEW [facility] n, [address], [place], [address], [place] tel:[phone] [facility] annual exam (chief complaint) [...] rovider Payers Payer name Insurance type Covered constitution party ID Authoriza tion(s) [facility] [id number] Social History Type Description Quantity Date Captured [...] Helicoba cter Pylori Ab, Eia Stool ($) ([id number]), Ordered on: Ordered History Of Present Illness [...]
== END 2024-07-01 15:22 | disposition home or self-care (01) ==
PROVIDERS: PCP Internal Medicine; Visit Provider Internal Medicine
DX: G47.33 Obstructive sleep apnea (adult) (pediatric) (principal); K76.0 Fatty (change of) liver, not elsewhere classified; E66.9 Obesity, unspecified; Z68.38 Body mass index [BMI] 38.0-38.9, adult; R73.02 Impaired glucose tolerance (oral); I10 Essential (primary) hypertension; E03.9 Hypothyroidism, unspecified

== ENCOUNTER 2024-10-07 06:28 | Outpatient (REF) | payer OTHER, SELFPAY ==
[2024-10-07 07:59] LABS: Thyroid Stimulating Hormone 3.07 uIU/mL (0.32-4.0)
== END 2024-10-07 06:29 | disposition home or self-care (01) ==
LOC: HO.LAB 06:28
PROVIDERS: PCP Internal Medicine; Visit Provider Internal Medicine
DX: E03.9 Hypothyroidism, unspecified (principal); G47.33 Obstructive sleep apnea (adult) (pediatric); E78.00 Pure hypercholesterolemia, unspecified; K76.0 Fatty (change of) liver, not elsewhere classified; R73.02 Impaired glucose tolerance (oral); E66.9 Obesity, unspecified; Z68.37 Body mass index [BMI] 37.0-37.9, adult; I10 Essential (primary) hypertension; F41.1 Generalized anxiety disorder; Z79.899 Other long term (current) drug therapy
CPT/HCPCS: 36415; 84439; 84443; 96127

== ENCOUNTER 2024-10-07 09:39 | Outpatient (AMB) | payer OTHER, SELFPAY ==
[2024-10-07 09:48] VITALS: BP 122/76; PULSE 65; O2SAT 98; BMI 37.6
--- NOTE | 2024-10-07 09:48 | A.OFFPC_ITS ---
Vital Signs 10/07/24 09:48 Height 5 ft 4 in Weight 219 lb BMI 37.6 BP 122/76 Blood Pressure Location Lt brachial Position Sitting Pulse 65 Pulse Source Pulse Oximeter Pulse Oximetry (%) 98 Oxygen Delivery Method Room Air Intake Visit Reasons: HTN ., hypothryoid Allergies lisinopril Adverse Reaction (Intermediate, Verified 10/07/24 09:48) Cough Medication List - Last Reconciled 10/07/24 by Johnathan Zayas MD albuterol sulfate 90 mcg/actuation (Ventolin HFA) 2 puffs inhalation Q6H PRN amlodipine 2.5 mg PO DAILY [AUTOPAP 6-20 cm [id number] AIR sleep study done May 2024 showing obstructive sleep apnea moderately severe AHI 25 advise auto PAP mode 6-20 cm water] cholecalciferol (vitamin D3) 50 mcg PO DAILY fexofenadine 180 mg PO DAILY levothyroxine 200 mcg PO DAILY losartan-hydrochlorothiazide 100-12.5 mg 1 tab PO DAILY Tobacco use date assessed: 07/01/24 Dental Screening Dental Screen Date: 07/01/24 [facility] Medical History (Updated 05/17/24 @ 09:07 by Johnathan Zayas MD) Visual problems COVID-19 virus infection Plantar fasciitis of left foot Meralgia paresthetica of left side Hearing deficit Tubular adenoma of colon Colon cancer screening Glaucoma Anxiety and depression Obesity (BMI 30-39.9) Vitamin D deficiency Hypertension Hypothyroid Peripheral vascular disease Fatty liver Surgical History Hx of colonoscopy History of breast mammoplasty History of cholecystectomy History of tubal ligation Family History Father CVA (cerebrovascular accident due to intracerebral hemorrhage) Stroke Mother No problems noted. Sister Depression Son Drug abuse Brother CVA (cerebrovascular accident due to intracerebral hemorrhage) Social History Housing: House Alcohol intake: current Alcohol intake frequency: a few times a week Patient Tobacco Use Status: Never used Tobacco Tobacco use type: Cigarette e-Cigarette/Vaping Use: Never Used Second Hand Smoke Exposure: No service: No Current occupational status: employed Current occupational exposures/hazards: No Cognitive needs: No Hearing needs: No Vision needs: Yes Questionnaire PHQ-9 Over the last 2 weeks, how often have you been bothered by any of the following problems? 1. Little interest or pleasure in doing things: not at all 2. Feeling down, depressed, or hopeless: not at all 3. Trouble falling or staying asleep, or sleeping too much: several days 4. Feeling tired or having little energy: several days 5. Poor appetite or overeating: not at all 6. Feeling bad about yourself - or that you are a failure or have let yourself or your family down: not at all 7. Trouble concentrating on things, such as reading the newspaper or watching television: not at all 8. Moving or speaking so slowly that other people could have noticed. Or the opposite - being so fidgety or restless that you have been moving around a lot more than usual: not at all 9. Thoughts that you would be better off or of hurting yourself in some way: not at all Total score: 2 Depression Screening Interpretation: Positive Depression Screening Done: Yes 04418 - PHQ-9 Billing: Yes Source: Developed by Drs. Inocencio Hernandez, Trini Calle, Maximilian Conway and colleagues, with an educational denise from [employer]. Thrive Questionnaire Date Thrive assessed: 07/01/24 I am a: Patient What is your living situation today?: I have a steady place to live Within the past 12 months, did the food you bought not last and you didn't have the money to get more?: Never true Within the past 12 months, did you worry whether your food would run out before you got money to buy more?: Never true Do you have trouble paying for medicines?: No Do you have trouble getting transportation to medical appointments?: No Do you have trouble paying your heating and electricity bill?: No Do you have trouble taking care of your child, family member or friend?: No Do you have trouble with day-to-day activities such as bathing, preparing meals, shopping, managing finances, etc.?: No Are you currently unemployed and looking for a job?: No Are you interested in more education?: No Please select the resources that you would like help with: None Currently or been in a relationship where the following occur: I choose not to answer THRIVE Score: 0 AUDIT C Alcohol Use Questionnaire (AUDIT-C) 1. How often do you have a drink containing alcohol?: 2-3 times a week Total Score: 3 DANI-7 AMB Questionnaire DANI-7 Date DANI - 7 assessed: 07/01/24 Feeling nervous, anxious, or on edge: 0 = Not at all Not being able to stop or control worryin = Not at all Worrying too much about different things: 0 = Not at all Trouble relaxin = Not at all Being so restless that it is hard to sit still: 0 = Not at all Becoming easily annoyed or irritable: 0 = Not at all Feeling afraid as if something awful might happen: 0 = Not at all Total DANI-7 score (0-4 normal; 5-9 mild; 10-14 moderate; 15-21 severe): 0 Source: Developed by Drs. Inocencio Hernandez, Trini Calle, Maximilian Conway and colleagues, with an educational denise from [employer]. DANI-7 Assessment Billing DANI-7 Assessment Tool: DANI-7 Assessment 01527 Physical exam (Primary Care) Vital Signs: Last Vital Signs Pulse 65 10/07/24 09:48 BP 122/76 10/07/24 09:48 Pulse Ox 98 10/07/24 09:48 Oxygen Delivery Method Room Air 10/07/24 09:48 BMI result Body Mass Index 37.6 Tobacco/Smoking Status: Tobacco use Status Tobacco use date assessed 07/01/24 10/07/24 09:49 Patient Tobacco Use Status Never used Tobacco 10/07/24 09:49 Tobacco use type Cigarette 10/07/24 09:49 e-Cigarette/Vaping Use Never Used 10/07/24 09:49 PHQ-9: PHQ-9 Score PHQ-9: Total score 2 10/07/24 10:08 Depression Screening Interpretation: Positive Thrive Assessment: Date of Thrive Assessment Date Thrive assessed 07/01/24 10/07/24 09:49 Currently or been in a relationship where the following occur: I choose not to answer Const General: alert; No acute distress Eyes Conjunctivae: conjunctivae normal Resp Auscultation: clear to auscultation bilaterally Cardio Rate: regular rate Rhythm: regular rhythm GI Inspection: Yes normal to inspection Extrem General: Yes normal to inspection and No edema Coding Level of Care Code Est Pt Level 4 (46677) Complex EM visit Add On G2211 Diagnoses Obstructive sleep apnea G47.33 Hypercholesterolemia E78.00 Fatty liver K76.0 Impaired glucose tolerance R73.02 Obesity (BMI 30-39.9) E66.9 Essential hypertension I10 Hypertension type: essential hypertension Acquired hypothyroidism E03.9 Hypothyroidism type: acquired Generalized anxiety disorder F41.1 Additional Codes DANI-7 Assessment Billing - DANI-7 Assessment Tool: DANI-7 Assessment 62621 ([id number]) PHQ-9 - 60111 - PHQ-9 Billing: Yes ([id number]) Assessment & Plan Assessment & Plan (1) Obstructive sleep apnea: Comment: sleep study done May 2024 showing obstructive sleep apnea moderately severe AHI 25 the crease advise auto PAP mode 6-20 cm water Code(s): G47.33 - Obstructive sleep apnea (adult) (pediatric) Category: Medical Plan: Continue to use the CPAP more than 4 hours a night and benefits from this. (2) Hypercholesterolemia: Code(s): E78.00 - Pure hypercholesterolemia, unspecified Category: Medical Plan: Avoid fried foods, chicken skin, eggs, butter margarine, pastries and meat. Be it pork or beef they have a lot of cholesterol LDL goal of less than 130 and triglyceride of less than 150 diet controlled (3) Fatty liver: Comment: October 2023 Code(s): K76.0 - Fatty (change of) liver, not elsewhere classified Category: Medical Plan: Low-fat diet and exercise (4) Impaired glucose tolerance: Code(s): R73.02 - Impaired glucose tolerance (oral) Category: Medical Plan: Decrease the amount of carbohydrate intake, pasta, bread, rice and potatoes are all sugar and that is aside from all the sweet stuff, remember that fruits are good but they are Sweet also. (5) Obesity (BMI 30-39.9): Code(s): E66.9 - Obesity, unspecified Category: Medical Plan: Diet and exercise (6) Hypertension: Code(s): I10 - Essential (primary) hypertension Category: Medical Qualifiers: Hypertension type: essential hypertension Qualified Code(s): I10 - Ess ential (primary) hypertension Plan: Continue with blood pressure medication. Decrease salt intake and exercise on amlodipine 2.5 mg once a day with losartan hydrochlorothiazide 100/12.5 mg once a day (7) Hypothyroid: Code(s): E03.9 - Hypothyroidism, unspecified Category: Medical Qualifiers: Hypothyroidism type: acquired Qualified Code(s): E03.9 - Hypothyroidism, unspecified Plan: Continue with present dose of thyroid medication 200 mcg once a day (8) Generalized anxiety disorder: Code(s): F41.1 - Generalized anxiety disorder Category: Medical Plan: Stable Plan History of Present Illness The patient is a 59-year-old female presenting for a follow-up visit to address several chronic medical conditions, including sleep apnea and weight management. She reports experiencing a slight weight reduction of 3 pounds and has a history of obesity. Known chronic conditions include hypothyroidism, managed by a stable thyroid hormone replacement therapy. Essential hypertension is controlled with medications, achieving satisfactory results, as is hyperlipidemia, with stable L DL levels. Current laboratory values place her in a prediabetic state, marked by an A1c of 5.7, which has increased from consistent readings of 5.3 in prior years. There is a background of nonalcoholic fatty liver disease, with imaging confirming fatty liver. Her previous colonoscopy in 2022 showed a tubular adenoma, with current mammograms up to date. Notable anxiety, alongside asthma, is reported, with obstructive sleep apnea complicating her breathing during sleep, and exacerbated by challenges in CPAP usage due to service provider delays. Additionally, she experiences persistent tearing, treated under her environmental protection specialist's care, contributing to her ocular discomfort. Health Maintenance - Up-to-date mammogram as of March 2024 - Recent colonoscopy in 2022 revealing tubular adenoma - Asthma and sleep apnea management through CPAP device - Blood pressure managed with amlodipine and combination therapy - Regular monitoring of lipid levels achieving goal LDL below 130 - Hepatic monitoring, advised weight loss and lifestyle modifications for fatty liver disease - Recommendation for shingles vaccination pending - Initiating weight loss program with potential pharmacotherapy (Dominic Infante) - Encouraged low carbohydrate diet, reduction of sugary foods, and consistent exercise - Monitored hemoglobin A1c levels, with current conservative management Social History - Regular use of CPAP for sleep apnea, though adherence affected by provider communication issues - Attempts weight management through diet and prescribed medications options - Engages in a low-fat diet and regular exercise to support weight loss - Expresses interest in beginning a formal weight management program - Recent experience with eye procedures for chronic tearing Review of Systems - Cardiovascular: Reports compliance with antihypertensive medication regimen. - Respiratory: Reports use of CPAP device; Denies new symptoms of asthma exacerbation. - Endocrine: Reports stable management of thyroid disorder. - Metabolic: Reports elevated liver tests in context of fatty liver. - Ophthalmologic: Reports persistent tearing; denies vision changes. - Other: Notes anxiety, but managed; denies new symptoms. Physical Exam Results - Labs: Normal blood count, normal electrolytes, normal renal function, hemoglobin A1c 5.7, elevated liver function tests - Tests & Diagnostics: Thyroid tests within normal range, LDL less than 130, abdominal ultrasound showing fatty liver Plan I have provided comprehensive management, ensuring hypertension and hypothyroidism remain well-controlled with current medications. We will introduce Mounjaro or Wegovy for weight loss if insurance allows, supplementing with a weight management program referral. CPAP adherence enhancements through provider communication are prioritized to address her sleep apnea. Ophthalmological evaluation of persistent tearing continues, assessing past procedure impacts. Dietary interventions are reinforced to control glucose leve ls, paired with regular exercise. Cardiovascular health vigilance extends to shingles vaccination. Mammography is confirmed current, aligning with preventive health. Anxiety management is supported by lifestyle changes. Patient was informed and verbally consented to the use of an ambient scribe for clinic note documentation during this visit. Discussion Notes I discussed the patient's weight management options, emphasizing the use of Mounjaro or Wegovy contingent on insurance approval. We reviewed the importance of adhering to CPAP therapy for obstructive sleep apnea and resolved to address the disconnect with her equipment provider. I highlighted ongoing management for comorbidities such as hypothyroidism and hypertension, focusing on maintaining optimal control. For her elevated liver enzymes and fatty liver disease, weight loss through diet and exercise was emphasized as a primary strategy. We discussed her recent eye procedures and the plan to consult ophthalmology regarding persistent tearing concerns. The patient's prediabetic status was reviewed, with dietary modifications presented as imperative measures. The importance of timely vaccinations, particularly shingles, was reinforced, aligning with her preventive health strategy. Agreement was reached on current and proposed management plans. Patient Instructions - Continue thyroid medication and antihypertensives as prescribed. - Maintain low-carbohydrate diet and regular exercise. - Use CPAP for at least 4 hours per night; contact provider if issues persist. - Await insurance feedback for weight loss medications; continue consultation with weight management services. - Obtain shingles vaccine at [facility]. - Monitor blood glucose and liver health with dietary modifications. - Follow up with rippler for tearing issues. - Keep regular follow-ups for all chronic conditions as discussed. Orders: Referrals Medical Weight Management Referral E66.9 - Obesity, unspecified Medications: New tirzepatide (weight loss) (Zepbound) for 4 weeks 2.5 mg (0.5 mL) subcut QWEEK 2 mL 0RF E66.9 - Obesity, unspecified Refilled [AUTOPAP 6-20 cm [id number] AIR] sleep study done May 2024 showing obstructive sleep apnea moderately severe AHI 25 advise auto PAP mode 6-20 cm water 1 ea 0RF G47.33 - Obstructive sleep apnea (adult) (pediatric)
--- OUTSIDE RECORDS SUMMARY | 2024-10-07 10:42 | XMS_ITS | Patient Health Record ---
[facility] Address [address] [place] [address] Care Team Providers Care Steersman Name Role Phone Johnathan Zayas Primary Care Provider Yudi Boss Unavailable [phone] Allergies Allergen (clinical drug ingredient) Drug/Non Drug [...] X ray : Foot, left 3V 10/01/2022 [id number] TENDON SHEATH/LIGAMENT 0 10/01/2022 Insurance Providers Payer Name Payer Address Payer Phone Subscriber Number Group Number Insured Name Patient Relationship to Insured Coverage Start Date Coverage End Date [facility] [address] [facility] [place], [place] [address] [id number] Esha Freire Self - patient is the insured Medical (General) History Medical History History ICD Code High blood pressure thyroid Chicken pox Surgical History Surgery Date(Month/Year)
== END 2024-10-07 10:19 | disposition home or self-care (01) ==
LOC: HO.HMCH 09:40
PROVIDERS: PCP Internal Medicine; Visit Provider Internal Medicine
DX: G47.33 Obstructive sleep apnea (adult) (pediatric) (principal); E78.00 Pure hypercholesterolemia, unspecified; E66.9 Obesity, unspecified; Z68.37 Body mass index [BMI] 37.0-37.9, adult; K76.0 Fatty (change of) liver, not elsewhere classified; R73.02 Impaired glucose tolerance (oral); I10 Essential (primary) hypertension; E03.9 Hypothyroidism, unspecified; F41.1 Generalized anxiety disorder

== ENCOUNTER 2025-01-27 13:39 | Outpatient (AMB) | payer OTHER, SELFPAY ==
--- OUTSIDE RECORDS SUMMARY | 2025-01-27 13:50 | XMS_ITS | Patient Health Record ---
Author Organization [facility] Address [address] [place] [address] Care Team Providers Care Rn Recruitment Name Role Phone Marquez Johnathan Primary Care Provider Unavailsarah e Teagan Villatoro Unavailable [phone] Allergies Allergen (clinical drug ingredient) Drug/Non Drug Allergy documented on EMR Reaction Allergy Type Onset Date Status lisinopril Lisinopril cough Drug Allergy Activ e Reason For Referral No Information Medications Medication SIG (Take, Route, Frequency, Duration) Notes Start Date End Date Status Levothyroxine Sodium 200 MCG 1 capsule in the morning on an empty stomach Orally Once a day Active Losartan Potassium-HCTZ 100-12.5 MG 1 tablet Orally Once a day Active amLODIPine Besylate 2.5 MG 1 tablet Oral ly Once a day Active Vitamin D 50 MCG (1999) 1 tablet Oral ly Once a day Active Zepbound 5 MG/0.5ML 0.5 mL Subcutaneous weekly; Duration: 28 days 11/12/2024 Active Problems Problem Type SNOMED Code ICD Code Onset Dates Problem Status W/U Status Risk Notes Problem Essential hypertension (75845386) Essential hypertension (I10) Active confirmed Problem Acquired hypothyroidism (720078762) Acquired hypothyroidism (E03.9) Active confirmed Problem Hypothyroidism (35200989) Hypothyroidism, unspecified type (E03.9) Active confirmed Problem Obstructive sleep apnea syndrome (99350433) KAI (obstructive sleep apnea) (G47.33) Active confirmed Problem Obese class II (013522631374526) BMI 37.0-37.9, adult (Z68.37) Active confirmed Problem Obese class II (338879416804913) BMI 39.0-39.9,adult (Z68.39) Active confirmed Problem Obese class II (909620844264355) BMI 36.0-36.9,adult (Z68.36) Active confirmed Problem Obstructive sleep apnea syndrome (76189285) Obstructive apnea (G47.33) Active confirmed Problem Essential hypertension (40924075) Hypertension, essential (I10) Active confirmed Problem Obesity (910441903) Moderate obesity (E66.9) Active confirmed Vital Signs Heart Rate 93 /min 01/17/2025 Blood pressure diastolic 78 mm Hg 01/17/2025 Oximetry 98 % 01/17/2025 Height 63 in 01/17/2025 Blood pressure systolic 130 mm Hg 01/17/2025 Weight 207.9 lbs 01/17/2025 BMI 36.82 kg/m2 01/17/2025 Encounters Encounter Location Date Provider Diagnosis [facility] [address] [address] 11/12/2024 Teagan Normoyle Moderate obesity E66 .9 ; BMI 39.0-39.9,adult Z68.39 ; KAI (obstructive sleep apnea) G47.33 ; Essential hypertension I10 ; Acquired hypothyroidism E03.9 ; Encounter for examination of blood pressure without abnormal findings Z01.30 and Prediabetes R73.03 [facility] [address] [address] 12/14/2024 Teagan Normoyle BMI 37.0-37.9, adult Z68.37 ; Moderate obesity E66.9 ; KAI (obstructive sleep apnea) G47.33 ; Essential hypertension I10 ; Prediabetes R73.03 ; Acquired hypothyroidism E03.9 and Encounter for examination of blood pressure without abnormal findings Z01.30 [facility] [address] [address] 01/17/2025 Teagan Normoyle BMI 36.0-36.9,adult Z68.36 ; Moderate obesity E66.9 ; KAI (obstructive sleep apnea) G47.33 ; Essential hypertension I10 ; Prediabetes R73.03 ; Acquired hypothyroidism E03.9 and Encounter for examination of blood pressure without abnormal findings Z01.30 [facility] [address] [address] 11/12/2024 Teagan Normoyle [facility] [address] [address] 12/28/2024 Teagan Normoyle KAI (obstructive sle ep apnea) G47.33 [facility] [address] [address] 12/09/2024 Teagan Normoyle KAI (obstructive sle ep apnea) G47.33 [facility] [address] [address] 01/10/2025 Teagan Normoyle KAI (obstructive sle ep apnea) G47.33 [facility] [address] [address] 01/10/2025 Teagan Normoyle Assessments Encounter Date Diagnosis (ICD Code) Assessment Notes Treatment Notes Treatment Clinical Notes Section Notes 11/12/2024 BMI 39.0-39.9,adult (ICD-10 - Z68.39) Esha is a 59-year-old female who presents for weight management consult. Medical history, labs, allergies, medications, and social history reviewed with the patient. Provided education on healthy diet and lifestyle which includes high-protein, low carbohydrate, high-fiber, and a variety of fruits and vegetables. Patient encouraged to exercise with emphasis on resistance training minimum 3 times per week to maintain muscle mass and cardio to burn fat. All patient questions answered. Patient will follow-up in 4 weeks for weight management. #Obesity: 11/12/2024: Weight 222 pounds, BMI 39.32. Patient has been reaching 10,000 steps per day at work and being mindful of her diet for the past 12 months, however, has been unable to lose weight. Biggest barrier currently is lack of protein and consuming 3 drinks of alcohol daily, along with no exercise regimen. Discussed lifestyle modifications including walking for 30 minutes 3-4 times per week, protein goal of 80 to 100 g/day, and limiting alcohol consumption. Discussed oral and injectable medications. Patient interested in starting Zepbound 2.5 mg weekly injections. Plan to submit PA today. Educated on side effects including nausea, constipation, reflux, hair thinning. Follow-up in 4 weeks. #Obstructive sleep apnea: Follows with [facility], she had a sleep study done within the past year which showed obstructive sleep apnea. She is compliant with CPAP. Plan to start Zepbound 2.5 mg weekly injections. #Hypertension: BP today 128/84. Continue amlodipine 2.5 mg daily, losartan-HCTZ 100-12.5 mg daily. #Hypothyroidism: Continue levothyroxine 200 mcg daily. Follows closely with PCP every 3 months Patient was reassured and welcomed to the practice. We discussed that we stress a hollistic medical approach with emphasis on lifestyle modification. Patient was informed that a healthy lifestyle with exercise and good eating habits can help reduce his risk of medical complications. Patient is explained that obesity increases his risk of diabetes, cardiovascular disease, or organ damage. We spent a lot of time discussing the relationship between food, exercise, sleep, mental health and obesity. Patient was counseled on the importance EATING local, organic food when possible. Patient was educated on clean 15 and dirty dozen. I provided information about reading books called The Food Rules by Josue Alcantara and Eat Fat Get Lean by Dr Abhi Melton. Self education is important in the journey for weight management. Patient was offered diagnostic testing/ SECA scale. We want to measure visceral adiposity, advanced body composition, adverse lipids, fatty acid balance, risk for heart disease and atherosclerosis, markers of inflammation and genetic susceptibility. Patient was counseled on weight management and was advised to lose weight using A. Meal Replacement Products Patient was educated on the replacement products called optifast. This is a good way of taking fixed amount of calories. It has been shown in studies to be ineffective weight management tool. This however has to be coupled with lifestyle intervention as well as laboratory data and EKG monitoring. It is impossible to know how a person will tolerate complete meal replacement. The side effects of meal replacement and weight loss could include syncopal attacks, dizziness, gallstones, potential cholecystectomy, possible heart attack and even . The benefits of meal replacement would be potential weight loss but no guarantees can be made. Meal replacement products are not covered by insurance. Once the patient has bought these products we cannot return them B. Lifestyle management which includes several strategies as below 1. Eat a low carbohydrate good fat good protein diet. Eliminate refined carbohydrates from the diet. Limit sugared beverages. Eat local organic when possible. Cook your own meals. Read food labels. Focus on healthy snacks. Portion control and food with low glycemic index 2. Exercise regularly. Try to get at least 6000 steps a day. Use a predominant to track activity level. Consider using apps like 7 minute excercise, myStriped Sailpal, lose it, stick as needed for self-monitoring and weight management. Consider group exercises. Consider hiring a personalized living assistant. Regular exercise is crowe to sustainable health and prevents as a buffer against weight regain 3. Sleep is most important for healing. Try to sleep at least 6-8 hours a night. A good quality sleep needs a sleep ritual with ideal room temperature of around 68. It might help to take a shower and have no electronics in the room and sleep in a very dark room without artificial light. Start sleep routine and get up early in the morning and go to bed on time. 4. Make a social connection. Surround yourself with positive people with positive energy. Connect with friends and family. 5. Get into the habit of meditating and mindfulness while doing everything. 6. Go outside and connect with nature. C. Prescription medications Patient was educated on the use of prescription medications for medical weight loss. This is a growing list and includes phentermine, Topamax,Qsymia, contrave, belviq and saxenda, wegovy etc. All prescription medications could have side effects including but not limited to kidney stones, seizure disorder cardiac arrhythmias heart attack pancreatitis, GI effects, Etc. Patient was encouraged to read the prescription insert and have coaching with their pharmacist and make an informed decision about taking medication and know that these medications are being prescribed with good intentions and we do not know how a patient would react to her medication. Some medications are FDA approved for weight loss and there is also off label use depending on patient's inability to afford medications in an attempt to lose weight D. Behavioral counseling was done to establish a relationship between food and an mood. Patient was provided information about local counseling and psychiatry and Dr Padilla at [facility]. We would like to cover regular topics and build on low glycemic eating exercise mindful eating, using yoga and meditation along with deep breathing and connecting with friends and family. E. MASS PAT reviewed, Patient's current medications were reviewed and opinion was given on medication that can cause weight gain and can be substituted F. Patient was assessed for risk with obesity including and not limiting to atherosclerosis heart disease stroke kidney disease, restrictive lung disease, irritable bowel syndrome and overall mortality. Risk of developing prediabetes diabetes and metabolic syndrome was discussed G. Therapeutic plan: We have decided to make therapeutic plan which would include choosing wisely on calories restricting portion getting active, tracking weight, getting good quality sleep and working on time management H. Patient will follow up in 4 weeks for weight management Total time spent today was 60 minutes of which greater than 50% was spent on coordinating and counseling Case discussed with collaborating physician Marguerite Hardwick who reviewed the assessment and plan. Chart, medications, labs, vital signs reviewed. Dictation was accomplished with the use of Meshify voice recognition software, prone to medical misidentifications and grammatical errors. This is unintentional and the practitioner does try to identify and correct these, but some could still be present. Please do not hesitate to contact practitioner for clarification. All questions answered to patients satisfaction. Patient verbalized understanding of diagnosis and treatments explained. To call sooner prior to next visit it any questions/concerns arise. 11/12/2024 Moderate obesity (ICD-10 - E66.9) Esha is a 59-year-old female who presents for weight management consult. Medical history, labs, allergies, medications, and social history reviewed with the patient. Provided education on healthy diet and lifestyle which includes high-protein, low carbohydrate, high-fiber, and a variety of fruits and vegetables. Patient encouraged to exercise with emphasis on resistance training minimum 3 times per week to maintain muscle mass and cardio to burn fat. All patient questions answered. Patient will follow-up in 4 weeks for weight management. #Obesity: 11/12/2024: Weight 222 pounds, BMI 39.32. Patient has been reaching 10,000 steps per day at work and being mindful of her diet for the past 12 months, however, has been unable to lose weight. Biggest barrier currently is lack of protein and consuming 3 drinks of alcohol daily, along with no exercise regimen. Discussed lifestyle modifications including walking for 30 minutes 3-4 times per week, protein goal of 80 to 100 g/day, and limiting alcohol consumption. Discussed oral and injectable medications. Patient interested in starting Zepbound 2.5 mg weekly injections. Plan to submit PA today. Educated on side effects including nausea, constipation, reflux, hair thinning. Follow-up in 4 weeks. #Obstructive sleep apnea: Follows with [facility], she had a sleep study done within the past year which showed obstructive sleep apnea. She is compliant with CPAP. Plan to start Zepbound 2.5 mg weekly injections. #Hypertension: BP today 128/84. Continue amlodipine 2.5 mg daily, losartan-HCTZ 100-12.5 mg daily. #Hypothyroidism: Continue levothyroxine 200 mcg daily. Follows closely with PCP every 3 months Patient was reassured and welcomed to the practice. We discussed that we stress a hollistic medical approach with emphasis on lifestyle modification. Patient was informed that a healthy lifestyle with exercise and good eating habits can help reduce his risk of medical complications. Patient is explained that obesity increases his risk of diabetes, cardiovascular disease, or organ damage. We spent a lot of time discussing the relationship between food, exercise, sleep, mental health and obesity. Patient was counseled on the importance EATING local, organic food when possible. Patient was educated on clean 15 and dirty dozen. I provided information about reading books called The Food Rules by Josue Alcantara and Eat Fat Get Lean by Dr Abhi Melton. Self education is important in the journey for weight management. Patient was offered diagnostic testing/ SECA scale. We want to measure visceral adiposity, advanced body composition, adverse lipids, fatty acid balance, risk for heart disease and atherosclerosis, markers of inflammation and genetic susceptibility. Patient was counseled on weight management and was advised to lose weight using A. Meal Replacement Products Patient was educated on the replacement products called optifast. This is a good way of taking fixed amount of calories. It has been shown in studies to be ineffective weight management tool. This however has to be coupled with lifestyle intervention as well as laboratory data and EKG monitoring. It is impossible to know how a person will tolerate complete meal replacement. The side effects of meal replacement and weight loss could include syncopal attacks, dizziness, gallstones, potential cholecystectomy, possible heart attack and even . The benefits of meal replacement would be potential weight loss but no guarantees can be made. Meal replacement products are not covered by insurance. Once the patient has bought these products we cannot return them B. Lifestyle management which includes several strategies as below 1. Eat a low carbohydrate good fat good protein diet. Eliminate refined carbohydrates from the diet. Limit sugared beverages. Eat local organic when possible. Cook your own meals. Read food labels. Focus on healthy snacks. Portion control and food with low glycemic index 2. Exercise regularly. Try to get at least 6000 steps a day. Use a predominant to track activity level. Consider using apps like 7 minute excercise, Foundshopping[employer]compal, lose it, stick as needed for self-monitoring and weight management. Consider group exercises. Consider hiring a personalized living assistant. Regular exercise is crowe to sustainable health and prevents as a buffer against weight regain 3. Sleep is most important for healing. Try to sleep at least 6-8 hours a night. A good quality sleep needs a sleep ritual with ideal room temperature of around 68. It might help to take a shower and have no electronics in the room and sleep in a very dark room without artificial light. Start sleep routine and get up early in the morning and go to bed on time. 4. Make a social connection. Surround yourself with positive people with positive energy. Connect with friends and family. 5. Get into the habit of meditating and mindfulness while doing everything. 6. Go outside and connect with nature. C. Prescription medications Patient was educated on the use of prescription medications for medical weight loss. This is a growing list and includes phentermine, Topamax,Qsymia, contrave, belviq and saxenda, wegovy etc. All prescription medications could have side effects including but not limited to kidney stones, seizure disorder cardiac arrhythmias heart attack pancreatitis, GI effects, Etc. Patient was encouraged to read the prescription insert and have coaching with their pharmacist and make an informed decision about taking medication and know that these medications are being prescribed with good intentions and we do not know how a patient would react to her medication. Some medications are FDA approved for weight loss and there is also off label use depending on patient's inability to afford medications in an attempt to lose weight D. Behavioral counseling was done to establish a relationship between food and an mood. Patient was provided information about local counseling and psychiatry and Dr Padilla at [facility]. We would like to cover regular topics and build on low glycemic eating exercise mindful eating, using yoga and meditation along with deep breathing and connecting with friends and family. E. MASS PAT reviewed, Patient's current medications were reviewed and opinion was given on medication that can cause weight gain and can be substituted F. Patient was assessed for risk with obesity including and not limiting to atherosclerosis heart disease stroke kidney disease, restrictive lung disease, irritable bowel syndrome and overall mortality. Risk of developing prediabetes diabetes and metabolic syndrome was discussed G. Therapeutic plan: We have decided to make therapeutic plan which would include choosing wisely on calories restricting portion getting active, tracking weight, getting good quality sleep and working on time management H. Patient will follow up in 4 weeks for weight management Total time spent today was 60 minutes of which greater than 50% was spent on coordinating and counseling Case discussed with collaborating physician Marguerite Hardwick who reviewed the assessment and plan. Chart, medications, labs, vital signs reviewed. Dictation was accomplished with the use of Meshify voice recognition software, prone to medical misidentifications and grammatical errors. This is unintentional and the practitioner does try to identify and correct these, but some could still be present. Please do not hesitate to contact practitioner for clarification. All questions answered to patients satisfaction. Patient verbalized understanding of diagnosis and treatments explained. To call sooner prior to next visit it any questions/concerns arise. 12/09/2024 KAI (obstructive sleep apnea) (ICD-10 - G47.33) 12/14/2024 BMI 37.0-37.9, adult (ICD-10 - Z68.37) Esha is a 59-year-old female who presents for weight management consult. Medical history, labs, allergies, medications, and social history reviewed with the patient. Provided education on healthy diet and lifestyle which includes high-protein, low carbohydrate, high-fiber, and a variety of fruits and vegetables. Patient encouraged to exercise with emphasis on resistance training minimum 3 times per week to maintain muscle mass and cardio to burn fat. All patient questions answered. Patient will follow-up in 4 weeks for weight management. #Obesity: 11/12/2024: Weight 222 pounds, BMI 39.32. Patient has been reaching 10,000 steps per day at work and being mindful of her diet for the past 12 months, however, has been unable to lose weight. Biggest barrier currently is lack of protein and consuming 3 drinks of alcohol daily, along with no exercise regimen. Discussed lifestyle modifications including walking for 30 minutes 3-4 times per week, protein goal of 80 to 100 g/day, and limiting alcohol consumption. Discussed oral and injectable medications. Patient interested in starting Zepbound 2.5 mg weekly injections. Plan to submit PA today. Educated on side effects including nausea, constipation, reflux, hair thinning. Follow-up in 4 weeks. 12/14/2024: Weight 212.0 pounds, BMI 37.55. Patient congratulated on effort. Overall weight decreased 10 pounds, fat mass decreased 13 pounds, skeletal muscle mass increase 0.3 pounds, waist circumference increased 0.5 inches. She has been focusing on protein intake. She reports constipation for which she takes MiraLAX daily. Patient encouraged to add on a stool softener as well. Discussed protein and exercise goals. Plan to continue Zepbound 2.5 mg weekly injections. Follow-up in 4 weeks. #Obstructive sleep apnea: Follows with [facility], she had a sleep study done within the past year which showed obstructive sleep apnea. She is compliant with CPAP. #Hypertension: BP elevated today 140/90, repeat 138/80. She states she has not taken her medications today. Continue amlodipine 2.5 mg daily, losartan-HCTZ 100-12.5 mg daily. #Hypothyroidism: Continue levothyroxine 200 mcg daily. Follows closely with PCP every 3 months Patient was reassured and welcomed to the practice. We discussed that we stress a hollistic medical approach with emphasis on lifestyle modification. Patient was informed that a healthy lifestyle with exercise and good eating habits can help reduce his risk of medical complications. Patient is explained that obesity increases his risk of diabetes, cardiovascular disease, or organ damage. We spent a lot of time discussing the relationship between food, exercise, sleep, mental health and obesity. Patient was counseled on the importance EATING local, organic food when possible. Patient was educated on clean 15 and dirty dozen. I provided information about reading books called The Food Rules by Josue Alcantara and Eat Fat Get Lean by Dr Abhi Melton. Self education is important in the journey for weight management. Patient was offered diagnostic testing/ SECA scale. We want to measure visceral adiposity, advanced body composition, adverse lipids, fatty acid balance, risk for heart disease and atherosclerosis, markers of inflammation and genetic susceptibility. Patient was counseled on weight management and was advised to lose weight using A. Meal Replacement Products Patient was educated on the replacement products called optifast. This is a good way of taking fixed amount of calories. It has been shown in studies to be ineffective weight management tool. This however has to be coupled with lifestyle intervention as well as laboratory data and EKG monitoring. It is impossible to know how a person will tolerate complete meal replacement. The side effects of meal replacement and weight loss could include syncopal attacks, dizziness, gallstones, potential cholecystectomy, possible heart attack and even . The benefits of meal replacement would be potential weight loss but no guarantees can be made. Meal replacement products are not covered by insurance. Once the patient has bought these products we cannot return them B. Lifestyle management which includes several strategies as below 1. Eat a low carbohydrate good fat good protein diet. Eliminate refined carbohydrates from the diet. Limit sugared beverages. Eat local organic when possible. Cook your own meals. Read food labels. Focus on healthy snacks. Portion control and food with low glycemic index 2. Exercise regularly. Try to get at least 6000 steps a day. Use a predominant to track activity level. Consider using apps like 7 minute excercise, Foundshopping.compal, lose it, stick as needed for self-monitoring and weight management. Consider group exercises. Consider hiring a personalized living assistant. Regular exercise is crowe to sustainable health and prevents as a buffer against weight regain 3. Sleep is most important for healing. Try to sleep at least 6-8 hours a night. A good quality sleep needs a sleep ritual with ideal room temperature of around 68. It might help to take a shower and have no electronics in the room and sleep in a very dark room without artificial light. Start sleep routine and get up early in the morning and go to bed on time. 4. Make a social connection. Surround yourself with positive people with positive energy. Connect with friends and family. 5. Get into the habit of meditating and mindfulness while doing everything. 6. Go outside and connect with nature. C. Prescription medications Patient was educated on the use of prescription medications for medical weight loss. This is a growing list and includes phentermine, Topamax,Qsymia, contrave, belviq and saxenda, wegovy etc. All prescription medications could have side effects including but not limited to kidney stones, seizure disorder cardiac arrhythmias heart attack pancreatitis, GI effects, Etc. Patient was encouraged to read the prescription insert and have coaching with their pharmacist and make an informed decision about taking medication and know that these medications are being prescribed with good intentions and we do not know how a patient would react to her medication. Some medications are FDA approved for weight loss and there is also off label use depending on patient's inability to afford medications in an attempt to lose weight D. Behavioral counseling was done to establish a relationship between food and an mood. Patient was provided information about local counseling and psychiatry and Dr Padilla at [facility]. We would like to cover regular topics and build on low glycemic eating exercise mindful eating, using yoga and meditation along with deep breathing and connecting with friends and family. E. MASS PAT reviewed, Patient's current medications were reviewed and opinion was given on medication that can cause weight gain and can be substituted F. Patient was assessed for risk with obesity including and not limiting to atherosclerosis heart disease stroke kidney disease, restrictive lung disease, irritable bowel syndrome and overall mortality. Risk of developing prediabetes diabetes and metabolic syndrome was discussed G. Therapeutic plan: We have decided to make therapeutic plan which would include choosing wisely on calories restricting portion getting active, tracking weight, getting good quality sleep and working on time management H. Patient will follow up in 4 weeks for weight management Total time spent today was 60 minutes of which greater than 50% was spent on coordinating and counseling Case discussed with collaborating physician Marguerite Hardwick who reviewed the assessment and plan. Chart, medications, labs, vital signs reviewed. Dictation was accomplished with the use of Meshify voice recognition software, prone to medical misidentifications and grammatical errors. This is unintentional and the practitioner does try to identify and correct these, but some could still be present. Please do not hesitate to contact practitioner for clarification. All questions answered to patients satisfaction. Patient verbalized understanding of diagnosis and treatments explained. To call sooner prior to next visit it any questions/concerns arise. 12/28/2024 KAI (obstructive sleep apnea) (ICD-10 - G47.33) 01/10/2025 KAI (obstructive sleep apnea) (ICD-10 - G47.33) 01/17/2025 BMI 36.0-36.9,adult (ICD-10 - Z68.36) Esha is a 59-year-old female who presents for weight management consult. Medical history, labs, allergies, medications, and social history reviewed with the patient. Provided education on healthy diet and lifestyle which includes high-protein, low carbohydrate, high-fiber, and a variety of fruits and vegetables. Patient encouraged to exercise with emphasis on resistance training minimum 3 times per week to maintain muscle mass and cardio to burn fat. All patient questions answered. Patient will follow-up in 4 weeks for weight management. #Obesity: 11/12/2024: Weight 222 pounds, BMI 39.32. Patient has been reaching 10,000 steps per day at work and being mindful of her diet for the past 12 months, however, has been unable to lose weight. Biggest barrier currently is lack of protein and consuming 3 drinks of alcohol daily, along with no exercise regimen. Discussed lifestyle modifications including walking for 30 minutes 3-4 times per week, protein goal of 80 to 100 g/day, and limiting alcohol consumption. Discussed oral and injectable medications. Patient interested in starting Zepbound 2.5 mg weekly injections. Plan to submit PA today. Educated on side effects including nausea, constipation, reflux, hair thinning. Follow-up in 4 weeks. 12/14/2024: Weight 212.0 pounds, BMI 37.55. Patient congratulated on effort. Overall weight decreased 10 pounds, fat mass decreased 13 pounds, skeletal muscle mass increase 0.3 pounds, waist circumference increased 0.5 inches. She has been focusing on protein intake. She reports constipation for which she takes MiraLAX daily. Patient encouraged to add on a stool softener as well. Discussed protein and exercise goals. Plan to continue Zepbound 2.5 mg weekly injections. Follow-up in 4 weeks. 01/17/2025: Weight 207.9 pounds, BMI 36.82. Continues on Zepbound 5 mg weekly injections. Congratulated on effort. She maintain muscle mass at 49 pounds, waist circumference went from 43 to 42.5 inches, fat mass decreased 1 pound. Educated on protein, exercise, hydration goals. Refill not required at this time. Will follow-up in 4 weeks. #Obstructive sleep apnea: Follows with [facility], she had a sleep study done within the past year which showed obstructive sleep apnea. She is compliant with CPAP. #Hypertension: Well-controlled today. Continue amlodipine 2.5 mg daily, losartan-HCTZ 100-12.5 mg daily. #Hypothyroidism: Continue levothyroxine 200 mcg daily. Follows closely with PCP every 3 months Patient was reassured and welcomed to the practice. We discussed that we stress a hollistic medical approach with emphasis on lifestyle modification. Patient was informed that a healthy lifestyle with exercise and good eating habits can help reduce his risk of medical complications. Patient is explained that obesity increases his risk of diabetes, cardiovascular disease, or organ damage. We spent a lot of time discussing the relationship between food, exercise, sleep, mental health and obesity. Patient was counseled on the importance EATING local, organic food when possible. Patient was educated on clean 15 and dirty dozen. I provided information about reading books called The Food Rules by Josue Alcantara and Eat Fat Get Lean by Dr Abhi Melton. Self education is important in the journey for weight management. Patient was offered diagnostic testing/ SECA scale. We want to measure visceral adiposity, advanced body composition, adverse lipids, fatty acid balance, risk for heart disease and atherosclerosis, markers of inflammation and genetic susceptibility. Patient was counseled on weight management and was advised to lose weight using A. Meal Replacement Products Patient was educated on the replacement products called optifast. This is a good way of taking fixed amount of calories. It has been shown in studies to be ineffective weight management tool. This however has to be coupled with lifestyle intervention as well as laboratory data and EKG monitoring. It is impossible to know how a person will tolerate complete meal replacement. The side effects of meal replacement and weight loss could include syncopal attacks, dizziness, gallstones, potential cholecystectomy, possible heart attack and even . The benefits of meal replacement would be potential weight loss but no guarantees can be made. Meal replacement products are not covered by insurance. Once the patient has bought these products we cannot return them B. Lifestyle management which includes several strategies as below 1. Eat a low carbohydrate good fat good protein diet. Eliminate refined carbohydrates from the diet. Limit sugared beverages. Eat local organic when possible. Cook your own meals. Read food labels. Focus on healthy snacks. Portion control and food with low glycemic index 2. Exercise regularly. Try to get at least 6000 steps a day. Use a predominant to track activity level. Consider using apps like 7 minute excercise, myfitnesspal, lose it, stick as needed for self-monitoring and weight management. Consider group exercises. Consider hiring a personalized living assistant. Regular exercise is crowe to sustainable health and prevents as a buffer against weight regain 3. Sleep is most important for healing. Try to sleep at least 6-8 hours a night. A good quality sleep needs a sleep ritual with ideal room temperature of around 68. It might help to take a shower and have no electronics in the room and sleep in a very dark room without artificial light. Start sleep routine and get up early in the morning and go to bed on time. 4. Make a social connection. Surround yourself with positive people with positive energy. Connect with friends and family. 5. Get into the habit of meditating and mindfulness while doing everything. 6. Go outside and connect with nature. C. Prescription medications Patient was educated on the use of prescription medications for medical weight loss. This is a growing list and includes phentermine, Topamax,Qsymia, contrave, belviq and saxenda, wegovy etc. All prescription medications could have side effects including but not limited to kidney stones, seizure disorder cardiac arrhythmias heart attack pancreatitis, GI effects, Etc. Patient was encouraged to read the prescription insert and have coaching with their pharmacist and make an informed decision about taking medication and know that these medications are being prescribed with good intentions and we do not know how a patient would react to her medication. Some medications are FDA approved for weight loss and there is also off label use depending on patient's inability to afford medications in an attempt to lose weight D. Behavioral counseling was done to establish a relationship between food and an mood. Patient was provided information about local counseling and psychiatry and Dr Padilla at [facility]. We would like to cover regular topics and build on low glycemic eating exercise mindful eating, using yoga and meditation along with deep breathing and connecting with friends and family. E. MASS PAT reviewed, Patient's current medications were reviewed and opinion was given on medication that can cause weight gain and can be substituted F. Patient was assessed for risk with obesity including and not limiting to atherosclerosis heart disease stroke kidney disease, restrictive lung disease, irritable bowel syndrome and overall mortality. Risk of developing prediabetes diabetes and metabolic syndrome was discussed G. Therapeutic plan: We have decided to make therapeutic plan which would include choosing wisely on calories restricting portion getting active, tracking weight, getting good quality sleep and working on time management H. Patient will follow up in 4 weeks for weight management Total time spent today was 60 minutes of which greater than 50% was spent on coordinating and counseling Case discussed with collaborating physician Marguerite Hardwick who reviewed the assessment and plan. Chart, medications, labs, vital signs reviewed. Dictation was accomplished with the use of Meshify voice recognition software, prone to medical misidentifications and grammatical errors. This is unintentional and the practitioner does try to identify and correct these, but some could still be present. Please do not hesitate to contact practitioner for clarification. All questions answered to patients satisfaction. Patient verbalized understanding of diagnosis and treatments explained. To call sooner prior to next visit it any questions/concerns arise. 01/17/2025 Moderate obesity (ICD-10 - E66.9) Esha is a 59-year-old female who presents for weight management consult. Medical history, labs, allergies, medications, and social history reviewed with the patient. Provided education on healthy diet and lifestyle which includes high-protein, low carbohydrate, high-fiber, and a variety of fruits and vegetables. Patient encouraged to exercise with emphasis on resistance training minimum 3 times per week to maintain muscle mass and cardio to burn fat. All patient questions answered. Patient will follow-up in 4 weeks for weight management. #Obesity: 11/12/2024: Weight 222 pounds, BMI 39.32. Patient has been reaching 10,000 steps per day at work and being mindful of her diet for the past 12 months, however, has been unable to lose weight. Biggest barrier currently is lack of protein and consuming 3 drinks of alcohol daily, along with no exercise regimen. Discussed lifestyle modifications including walking for 30 minutes 3-4 times per week, protein goal of 80 to 100 g/day, and limiting alcohol consumption. Discussed oral and injectable medications. Patient interested in starting Zepbound 2.5 mg weekly injections. Plan to submit PA today. Educated on side effects including nausea, constipation, reflux, hair thinning. Follow-up in 4 weeks. 12/14/2024: Weight 212.0 pounds, BMI 37.55. Patient congratulated on effort. Overall weight decreased 10 pounds, fat mass decreased 13 pounds, skeletal muscle mass increase 0.3 pounds, waist circumference increased 0.5 inches. She has been focusing on protein intake. She reports constipation for which she takes MiraLAX daily. Patient encouraged to add on a stool softener as well. Discussed protein and exercise goals. Plan to continue Zepbound 2.5 mg weekly injections. Follow-up in 4 weeks. 01/17/2025: Weight 207.9 pounds, BMI 36.82. Continues on Zepbound 5 mg weekly injections. Congratulated on effort. She maintain muscle mass at 49 pounds, waist circumference went from 43 to 42.5 inches, fat mass decreased 1 pound. Educated on protein, exercise, hydration goals. Refill not required at this time. Will follow-up in 4 weeks. #Obstructive sleep apnea: Follows with [facility], she had a sleep study done within the past year which showed obstructive sleep apnea. She is compliant with CPAP. #Hypertension: Well-controlled today. Continue amlodipine 2.5 mg daily, losartan-HCTZ 100-12.5 mg daily. #Hypothyroidism: Continue levothyroxine 200 mcg daily. Follows closely with PCP every 3 months Patient was reassured and welcomed to the practice. We discussed that we stress a hollistic medical approach with emphasis on lifestyle modification. Patient was informed that a healthy lifestyle with exercise and good eating habits can help reduce his risk of medical complications. Patient is explained that obesity increases his risk of diabetes, cardiovascular disease, or organ damage. We spent a lot of time discussing the relationship between food, exercise, sleep, mental health and obesity. Patient was counseled on the importance EATING local, organic food when possible. Patient was educated on clean 15 and dirty dozen. I provided information about reading books called The Food Rules by Josue Alcantara and Eat Fat Get Lean by Dr Abhi Melton. Self education is important in the journey for weight management. Patient was offered diagnostic testing/ SECA scale. We want to measure visceral adiposity, advanced body composition, adverse lipids, fatty acid balance, risk for heart disease and atherosclerosis, markers of inflammation and genetic susceptibility. Patient was counseled on weight management and was advised to lose weight using A. Meal Replacement Products Patient was educated on the replacement products called optifast. This is a good way of taking fixed amount of calories. It has been shown in studies to be ineffective weight management tool. This however has to be coupled with lifestyle intervention as well as laboratory data and EKG monitoring. It is impossible to know how a person will tolerate complete meal replacement. The side effects of meal replacement and weight loss could include syncopal attacks, dizziness, gallstones, potential cholecystectomy, possible heart attack and even . The benefits of meal replacement would be potential weight loss but no guarantees can be made. Meal replacement products are not covered by insurance. Once the patient has bought these products we cannot return them B. Lifestyle management which includes several strategies as below 1. Eat a low carbohydrate good fat good protein diet. Eliminate refined carbohydrates from the diet. Limit sugared beverages. Eat local organic when possible. Cook your own meals. Read food labels. Focus on healthy snacks. Portion control and food with low glycemic index 2. Exercise regularly. Try to get at least 6000 steps a day. Use a predominant to track activity level. Consider using apps like 7 minute excercise, myStriped Sailpal, lose it, stick as needed for self-monitoring and weight management. Consider group exercises. Consider hiring a personalized living assistant. Regular exercise is crowe to sustainable health and prevents as a buffer against weight regain 3. Sleep is most important for healing. Try to sleep at least 6-8 hours a night. A good quality sleep needs a sleep ritual with ideal room temperature of around 68. It might help to take a shower and have no electronics in the room and sleep in a very dark room without artificial light. Start sleep routine and get up early in the morning and go to bed on time. 4. Make a social connection. Surround yourself with positive people with positive energy. Connect with friends and family. 5. Get into the habit of meditating and mindfulness while doing everything. 6. Go outside and connect with nature. C. Prescription medications Patient was educated on the use of prescription medications for medical weight loss. This is a growing list and includes phentermine, Topamax,Qsymia, contrave, belviq and saxenda, wegovy etc. All prescription medications could have side effects including but not limited to kidney stones, seizure disorder cardiac arrhythmias heart attack pancreatitis, GI effects, Etc. Patient was encouraged to read the prescription insert and have coaching with their pharmacist and make an informed decision about taking medication and know that these medications are being prescribed with good intentions and we do not know how a patient would react to her medication. Some medications are FDA approved for weight loss and there is also off label use depending on patient's inability to afford medications in an attempt to lose weight D. Behavioral counseling was done to establish a relationship between food and an mood. Patient was provided information about local counseling and psychiatry and Dr Padilla at [facility]. We would like to cover regular topics and build on low glycemic eating exercise mindful eating, using yoga and meditation along with deep breathing and connecting with friends and family. E. MASS PAT reviewed, Patient's current medications were reviewed and opinion was given on medication that can cause weight gain and can be substituted F. Patient was assessed for risk with obesity including and not limiting to atherosclerosis heart disease stroke kidney disease, restrictive lung disease, irritable bowel syndrome and overall mortality. Risk of developing prediabetes diabetes and metabolic syndrome was discussed G. Therapeutic plan: We have decided to make therapeutic plan which would include choosing wisely on calories restricting portion getting active, tracking weight, getting good quality sleep and working on time management H. Patient will follow up in 4 weeks for weight management Total time spent today was 60 minutes of which greater than 50% was spent on coordinating and counseling Case discussed with collaborating physician Marguerite Hardwick who reviewed the assessment and plan. Chart, medications, labs, vital signs reviewed. Dictation was accomplished with the use of Meshify voice recognition software, prone to medical misidentifications and grammatical errors. This is unintentional and the practitioner does try to identify and correct these, but some could still be present. Please do not hesitate to contact practitioner for clarification. All questions answered to patients satisfaction. Patient verbalized understanding of diagnosis and treatments explained. To call sooner prior to next visit it any questions/concerns arise. 01/17/2025 KAI (obstructive sleep apnea) (ICD-10 - G47.33) Esha is a 59-year-old female who presents for weight management consult. Medical history, labs, allergies, medications, and social history reviewed with the patient. Provided education on healthy diet and lifestyle which includes high-protein, low carbohydrate, high-fiber, and a variety of fruits and vegetables. Patient encouraged to exercise with emphasis on resistance training minimum 3 times per week to maintain muscle mass and cardio to burn fat. All patient questions answered. Patient will follow-up in 4 weeks for weight management. #Obesity: 11/12/2024: Weight 222 pounds, BMI 39.32. Patient has been reaching 10,000 steps per day at work and being mindful of her diet for the past 12 months, however, has been unable to lose weight. Biggest barrier currently is lack of protein and consuming 3 drinks of alcohol daily, along with no exercise regimen. Discussed lifestyle modifications including walking for 30 minutes 3-4 times per week, protein goal of 80 to 100 g/day, and limiting alcohol consumption. Discussed oral and injectable medications. Patient interested in starting Zepbound 2.5 mg weekly injections. Plan to submit PA today. Educated on side effects including nausea, constipation, reflux, hair thinning. Follow-up in 4 weeks. 12/14/2024: Weight 212.0 pounds, BMI 37.55. Patient congratulated on effort. Overall weight decreased 10 pounds, fat mass decreased 13 pounds, skeletal muscle mass increase 0.3 pounds, waist circumference increased 0.5 inches. She has been focusing on protein intake. She reports constipation for which she takes MiraLAX daily. Patient encouraged to add on a stool softener as well. Discussed protein and exercise goals. Plan to continue Zepbound 2.5 mg weekly injections. Follow-up in 4 weeks. 01/17/2025: Weight 207.9 pounds, BMI 36.82. Continues on Zepbound 5 mg weekly injections. Congratulated on effort. She maintain muscle mass at 49 pounds, waist circumference went from 43 to 42.5 inches, fat mass decreased 1 pound. Educated on protein, exercise, hydration goals. Refill not required at this time. Will follow-up in 4 weeks. #Obstructive sleep apnea: Follows with [facility], she had a sleep study done within the past year which showed obstructive sleep apnea. She is compliant with CPAP. #Hypertension: Well-controlled today. Continue amlodipine 2.5 mg daily, losartan-HCTZ 100-12.5 mg daily. #Hypothyroidism: Continue levothyroxine 200 mcg daily. Follows closely with PCP every 3 months Patient was reassured and welcomed to the practice. We discussed that we stress a hollistic medical approach with emphasis on lifestyle modification. Patient was informed that a healthy lifestyle with exercise and good eating habits can help reduce his risk of medical complications. Patient is explained that obesity increases his risk of diabetes, cardiovascular disease, or organ damage. We spent a lot of time discussing the relationship between food, exercise, sleep, mental health and obesity. Patient was counseled on the importance EATING local, organic food when possible. Patient was educated on clean 15 and dirty dozen. I provided information about reading books called The Food Rules by Josue Alcantara and Eat Fat Get Lean by Dr Abhi Melton. Self education is important in the journey for weight management. Patient was offered diagnostic testing/ SECA scale. We want to measure visceral adiposity, advanced body composition, adverse lipids, fatty acid balance, risk for heart disease and atherosclerosis, markers of inflammation and genetic susceptibility. Patient was counseled on weight management and was advised to lose weight using A. Meal Replacement Products Patient was educated on the replacement products called optifast. This is a good way of taking fixed amount of calories. It has been shown in studies to be ineffective weight management tool. This however has to be coupled with lifestyle intervention as well as laboratory data and EKG monitoring. It is impossible to know how a person will tolerate complete meal replacement. The side effects of meal replacement and weight loss could include syncopal attacks, dizziness, gallstones, potential cholecystectomy, possible heart attack and even . The benefits of meal replacement would be potential weight loss but no guarantees can be made. Meal replacement products are not covered by insurance. Once the patient has bought these products we cannot return them B. Lifestyle management which includes several strategies as below 1. Eat a low carbohydrate good fat good protein diet. Eliminate refined carbohydrates from the diet. Limit sugared beverages. Eat local organic when possible. Cook your own meals. Read food labels. Focus on healthy snacks. Portion control and food with low glycemic index 2. Exercise regularly. Try to get at least 6000 steps a day. Use a predominant to track activity level. Consider using apps like 7 minute excercise, Foundshopping.compal, lose it, stick as needed for self-monitoring and weight management. Consider group exercises. Consider hiring a personalized living assistant. Regular exercise is crowe to sustainable health and prevents as a buffer against weight regain 3. Sleep is most important for healing. Try to sleep at least 6-8 hours a night. A good quality sleep needs a sleep ritual with ideal room temperature of around 68. It might help to take a shower and have no electronics in the room and sleep in a very dark room without artificial light. Start sleep routine and get up early in the morning and go to bed on time. 4. Make a social connection. Surround yourself with positive people with positive energy. Connect with friends and family. 5. Get into the habit of meditating and mindfulness while doing everything. 6. Go outside and connect with nature. C. Prescription medications Patient was educated on the use of prescription medications for medical weight loss. This is a growing list and includes phentermine, Topamax,Qsymia, contrave, belviq and saxenda, wegovy etc. All prescription medications could have side effects including but not limited to kidney stones, seizure disorder cardiac arrhythmias heart attack pancreatitis, GI effects, Etc. Patient was encouraged to read the prescription insert and have coaching with their pharmacist and make an informed decision about taking medication and know that these medications are being prescribed with good intentions and we do not know how a patient would react to her medication. Some medications are FDA approved for weight loss and there is also off label use depending on patient's inability to afford medications in an attempt to lose weight D. Behavioral counseling was done to establish a relationship between food and an mood. Patient was provided information about local counseling and psychiatry and Dr Padilla at [facility]. We would like to cover regular topics and build on low glycemic eating exercise mindful eating, using yoga and meditation along with deep breathing and connecting with friends and family. E. MASS PAT reviewed, Patient's current medications were reviewed and opinion was given on medication that can cause weight gain and can be substituted F. Patient was assessed for risk with obesity including and not limiting to atherosclerosis heart disease stroke kidney disease, restrictive lung disease, irritable bowel syndrome and overall mortality. Risk of developing prediabetes diabetes and metabolic syndrome was discussed G. Therapeutic plan: We have decided to make therapeutic plan which would include choosing wisely on calories restricting portion getting active, tracking weight, getting good quality sleep and working on time management H. Patient will follow up in 4 weeks for weight management Total time spent today was 60 minutes of which greater than 50% was spent on coordinating and counseling Case discussed with collaborating physician Marguerite Hardwick who reviewed the assessment and plan. Chart, medications, labs, vital signs reviewed. Dictation was accomplished with the use of Meshify voice recognition software, prone to medical misidentifications and grammatical errors. This is unintentional and the practitioner does try to identify and correct these, but some could still be present. Please do not hesitate to contact practitioner for clarification. All questions answered to patients satisfaction. Patient verbalized understanding of diagnosis and treatments explained. To call sooner prior to next visit it any questions/concerns arise. 12/14/2024 KAI (obstructive sleep apnea) (ICD-10 - G47.33) Esha is a 59-year-old female who presents for weight management consult. Medical history, labs, allergies, medications, and social history reviewed with the patient. Provided education on healthy diet and lifestyle which includes high-protein, low carbohydrate, high-fiber, and a variety of fruits and vegetables. Patient encouraged to exercise with emphasis on resistance training minimum 3 times per week to maintain muscle mass and cardio to burn fat. All patient questions answered. Patient will follow-up in 4 weeks for weight management. #Obesity: 11/12/2024: Weight 222 pounds, BMI 39.32. Patient has been reaching 10,000 steps per day at work and being mindful of her diet for the past 12 months, however, has been unable to lose weight. Biggest barrier currently is lack of protein and consuming 3 drinks of alcohol daily, along with no exercise regimen. Discussed lifestyle modifications including walking for 30 minutes 3-4 times per week, protein goal of 80 to 100 g/day, and limiting alcohol consumption. Discussed oral and injectable medications. Patient interested in starting Zepbound 2.5 mg weekly injections. Plan to submit PA today. Educated on side effects including nausea, constipation, reflux, hair thinning. Follow-up in 4 weeks. 12/14/2024: Weight 212.0 pounds, BMI 37.55. Patient congratulated on effort. Overall weight decreased 10 pounds, fat mass decreased 13 pounds, skeletal muscle mass increase 0.3 pounds, waist circumference increased 0.5 inches. She has been focusing on protein intake. She reports constipation for which she takes MiraLAX daily. Patient encouraged to add on a stool softener as well. Discussed protein and exercise goals. Plan to continue Zepbound 2.5 mg weekly injections. Follow-up in 4 weeks. #Obstructive sleep apnea: Follows with [facility], she had a sleep study done within the past year which showed obstructive sleep apnea. She is compliant with CPAP. #Hypertension: BP elevated today 140/90, repeat 138/80. She states she has not taken her medications today. Continue amlodipine 2.5 mg daily, losartan-HCTZ 100-12.5 mg daily. #Hypothyroidism: Continue levothyroxine 200 mcg daily. Follows closely with PCP every 3 months Patient was reassured and welcomed to the practice. We discussed that we stress a hollistic medical approach with emphasis on lifestyle modification. Patient was informed that a healthy lifestyle with exercise and good eating habits can help reduce his risk of medical complications. Patient is explained that obesity increases his risk of diabetes, cardiovascular disease, or organ damage. We spent a lot of time discussing the relationship between food, exercise, sleep, mental health and obesity. Patient was counseled on the importance EATING local, organic food when possible. Patient was educated on clean 15 and dirty dozen. I provided information about reading books called The Food Rules by Josue Alcantara and Eat Fat Get Lean by Dr Abhi Melton. Self education is important in the journey for weight management. Patient was offered diagnostic testing/ SECA scale. We want to measure visceral adiposity, advanced body composition, adverse lipids, fatty acid balance, risk for heart disease and atherosclerosis, markers of inflammation and genetic susceptibility. Patient was counseled on weight management and was advised to lose weight using A. Meal Replacement Products Patient was educated on the replacement products called optifast. This is a good way of taking fixed amount of calories. It has been shown in studies to be ineffective weight management tool. This however has to be coupled with lifestyle intervention as well as laboratory data and EKG monitoring. It is impossible to know how a person will tolerate complete meal replacement. The side effects of meal replacement and weight loss could include syncopal attacks, dizziness, gallstones, potential cholecystectomy, possible heart attack and even . The benefits of meal replacement would be potential weight loss but no guarantees can be made. Meal replacement products are not covered by insurance. Once the patient has bought these products we cannot return them B. Lifestyle management which includes several strategies as below 1. Eat a low carbohydrate good fat good protein diet. Eliminate refined carbohydrates from the diet. Limit sugared beverages. Eat local organic when possible. Cook your own meals. Read food labels. Focus on healthy snacks. Portion control and food with low glycemic index 2. Exercise regularly. Try to get at least 6000 steps a day. Use a predominant to track activity level. Consider using apps like 7 minute excercise, myfitnesspal, lose it, stick as needed for self-monitoring and weight management. Consider group exercises. Consider hiring a personalized living assistant. Regular exercise is crowe to sustainable health and prevents as a buffer against weight regain 3. Sleep is most important for healing. Try to sleep at least 6-8 hours a night. A good quality sleep needs a sleep ritual with ideal room temperature of around 68. It might help to take a shower and have no electronics in the room and sleep in a very dark room without artificial light. Start sleep routine and get up early in the morning and go to bed on time. 4. Make a social connection. Surround yourself with positive people with positive energy. Connect with friends and family. 5. Get into the habit of meditating and mindfulness while doing everything. 6. Go outside and connect with nature. C. Prescription medications Patient was educated on the use of prescription medications for medical weight loss. This is a growing list and includes phentermine, Topamax,Qsymia, contrave, belviq and saxenda, wegovy etc. All prescription medications could have side effects including but not limited to kidney stones, seizure disorder cardiac arrhythmias heart attack pancreatitis, GI effects, Etc. Patient was encouraged to read the prescription insert and have coaching with their pharmacist and make an informed decision about taking medication and know that these medications are being prescribed with good intentions and we do not know how a patient would react to her medication. Some medications are FDA approved for weight loss and there is also off label use depending on patient's inability to afford medications in an attempt to lose weight D. Behavioral counseling was done to establish a relationship between food and an mood. Patient was provided information about local counseling and psychiatry and Dr Padilla at [facility]. We would like to cover regular topics and build on low glycemic eating exercise mindful eating, using yoga and meditation along with deep breathing and connecting with friends and family. E. MASS PAT reviewed, Patient's current medications were reviewed and opinion was given on medication that can cause weight gain and can be substituted F. Patient was assessed for risk with obesity including and not limiting to atherosclerosis heart disease stroke kidney disease, restrictive lung disease, irritable bowel syndrome and overall mortality. Risk of developing prediabetes diabetes and metabolic syndrome was discussed G. Therapeutic plan: We have decided to make therapeutic plan which would include choosing wisely on calories restricting portion getting active, tracking weight, getting good quality sleep and working on time management H. Patient will follow up in 4 weeks for weight management Total time spent today was 60 minutes of which greater than 50% was spent on coordinating and counseling Case discussed with collaborating physician Marguerite Hardwick who reviewed the assessment and plan. Chart, medications, labs, vital signs reviewed. Dictation was accomplished with the use of Meshify voice recognition software, prone to medical misidentifications and grammatical errors. This is unintentional and the practitioner does try to identify and correct these, but some could still be present. Please do not hesitate to contact practitioner for clarification. All questions answered to patients satisfaction. Patient verbalized understanding of diagnosis and treatments explained. To call sooner prior to next visit it any questions/concerns arise. 12/14/2024 Moderate obesity (ICD-10 - E66.9) Esha is a 59-year-old female who presents for weight management consult. Medical history, labs, allergies, medications, and social history reviewed with the patient. Provided education on healthy diet and lifestyle which includes high-protein, low carbohydrate, high-fiber, and a variety of fruits and vegetables. Patient encouraged to exercise with emphasis on resistance training minimum 3 times per week to maintain muscle mass and cardio to burn fat. All patient questions answered. Patient will follow-up in 4 weeks for weight management. #Obesity: 11/12/2024: Weight 222 pounds, BMI 39.32. Patient has been reaching 10,000 steps per day at work and being mindful of her diet for the past 12 months, however, has been unable to lose weight. Biggest barrier currently is lack of protein and consuming 3 drinks of alcohol daily, along with no exercise regimen. Discussed lifestyle modifications including walking for 30 minutes 3-4 times per week, protein goal of 80 to 100 g/day, and limiting alcohol consumption. Discussed oral and injectable medications. Patient interested in starting Zepbound 2.5 mg weekly injections. Plan to submit PA today. Educated on side effects including nausea, constipation, reflux, hair thinning. Follow-up in 4 weeks. 12/14/2024: Weight 212.0 pounds, BMI 37.55. Patient congratulated on effort. Overall weight decreased 10 pounds, fat mass decreased 13 pounds, skeletal muscle mass increase 0.3 pounds, waist circumference increased 0.5 inches. She has been focusing on protein intake. She reports constipation for which she takes MiraLAX daily. Patient encouraged to add on a stool softener as well. Discussed protein and exercise goals. Plan to continue Zepbound 2.5 mg weekly injections. Follow-up in 4 weeks. #Obstructive sleep apnea: Follows with [facility], she had a sleep study done within the past year which showed obstructive sleep apnea. She is compliant with CPAP. #Hypertension: BP elevated today 140/90, repeat 138/80. She states she has not taken her medications today. Continue amlodipine 2.5 mg daily, losartan-HCTZ 100-12.5 mg daily. #Hypothyroidism: Continue levothyroxine 200 mcg daily. Follows closely with PCP every 3 months Patient was reassured and welcomed to the practice. We discussed that we stress a hollistic medical approach with emphasis on lifestyle modification. Patient was informed that a healthy lifestyle with exercise and good eating habits can help reduce his risk of medical complications. Patient is explained that obesity increases his risk of diabetes, cardiovascular disease, or organ damage. We spent a lot of time discussing the relationship between food, exercise, sleep, mental health and obesity. Patient was counseled on the importance EATING local, organic food when possible. Patient was educated on clean 15 and dirty dozen. I provided information about reading books called The Food Rules by Josue Alcantara and Eat Fat Get Lean by Dr Abhi eMlton. Self education is important in the journey for weight management. Patient was offered diagnostic testing/ SECA scale. We want to measure visceral adiposity, advanced body composition, adverse lipids, fatty acid balance, risk for heart disease and atherosclerosis, markers of inflammation and genetic susceptibility. Patient was counseled on weight management and was advised to lose weight using A. Meal Replacement Products Patient was educated on the replacement products called optifast. This is a good way of taking fixed amount of calories. It has been shown in studies to be ineffective weight management tool. This however has to be coupled with lifestyle intervention as well as laboratory data and EKG monitoring. It is impossible to know how a person will tolerate complete meal replacement. The side effects of meal replacement and weight loss could include syncopal attacks, dizziness, gallstones, potential cholecystectomy, possible heart attack and even . The benefits of meal replacement would be potential weight loss but no guarantees can be made. Meal replacement products are not covered by insurance. Once the patient has bought these products we cannot return them B. Lifestyle management which includes several strategies as below 1. Eat a low carbohydrate good fat good protein diet. Eliminate refined carbohydrates from the diet. Limit sugared beverages. Eat local organic when possible. Cook your own meals. Read food labels. Focus on healthy snacks. Portion control and food with low glycemic index 2. Exercise regularly. Try to get at least 6000 steps a day. Use a predominant to track activity level. Consider using apps like 7 minute excercise, Foundshopping.compal, lose it, stick as needed for self-monitoring and weight management. Consider group exercises. Consider hiring a personalized living assistant. Regular exercise is crowe to sustainable health and prevents as a buffer against weight regain 3. Sleep is most important for healing. Try to sleep at least 6-8 hours a night. A good quality sleep needs a sleep ritual with ideal room temperature of around 68. It might help to take a shower and have no electronics in the room and sleep in a very dark room without artificial light. Start sleep routine and get up early in the morning and go to bed on time. 4. Make a social connection. Surround yourself with positive people with positive energy. Connect with friends and family. 5. Get into the habit of meditating and mindfulness while doing everything. 6. Go outside and connect with nature. C. Prescription medications Patient was educated on the use of prescription medications for medical weight loss. This is a growing list and includes phentermine, Topamax,Qsymia, contrave, belviq and saxenda, wegovy etc. All prescription medications could have side effects including but not limited to kidney stones, seizure disorder cardiac arrhythmias heart attack pancreatitis, GI effects, Etc. Patient was encouraged to read the prescription insert and have coaching with their pharmacist and make an informed decision about taking medication and know that these medications are being prescribed with good intentions and we do not know how a patient would react to her medication. Some medications are FDA approved for weight loss and there is also off label use depending on patient's inability to afford medications in an attempt to lose weight D. Behavioral counseling was done to establish a relationship between food and an mood. Patient was provided information about local counseling and psychiatry and Dr Padilla at [facility]. We would like to cover regular topics and build on low glycemic eating exercise mindful eating, using yoga and meditation along with deep breathing and connecting with friends and family. E. MASS PAT reviewed, Patient's current medications were reviewed and opinion was given on medication that can cause weight gain and can be substituted F. Patient was assessed for risk with obesity including and not limiting to atherosclerosis heart disease stroke kidney disease, restrictive lung disease, irritable bowel syndrome and overall mortality. Risk of developing prediabetes diabetes and metabolic syndrome was discussed G. Therapeutic plan: We have decided to make therapeutic plan which would include choosing wisely on calories restricting portion getting active, tracking weight, getting good quality sleep and working on time management H. Patient will follow up in 4 weeks for weight management Total time spent today was 60 minutes of which greater than 50% was spent on coordinating and counseling Case discussed with collaborating physician Marguerite Hardwick who reviewed the assessment and plan. Chart, medications, labs, vital signs reviewed. Dictation was accomplished with the use of Meshify voice recognition software, prone to medical misidentifications and grammatical errors. This is unintentional and the practitioner does try to identify and correct these, but some could still be present. Please do not hesitate to contact practitioner for clarification. All questions answered to patients satisfaction. Patient verbalized understanding of diagnosis and treatments explained. To call sooner prior to next visit it any questions/concerns arise. 11/12/2024 KAI (obstructive sleep apnea) (ICD-10 - G47.33) Esha is a 59-year-old female who presents for weight management consult. Medical history, labs, allergies, medications, and social history reviewed with the patient. Provided education on healthy diet and lifestyle which includes high-protein, low carbohydrate, high-fiber, and a variety of fruits and vegetables. Patient encouraged to exercise with emphasis on resistance training minimum 3 times per week to maintain muscle mass and cardio to burn fat. All patient questions answered. Patient will follow-up in 4 weeks for weight management. #Obesity: 11/12/2024: Weight 222 pounds, BMI 39.32. Patient has been reaching 10,000 steps per day at work and being mindful of her diet for the past 12 months, however, has been unable to lose weight. Biggest barrier currently is lack of protein and consuming 3 drinks of alcohol daily, along with no exercise regimen. Discussed lifestyle modifications including walking for 30 minutes 3-4 times per week, protein goal of 80 to 100 g/day, and limiting alcohol consumption. Discussed oral and injectable medications. Patient interested in starting Zepbound 2.5 mg weekly injections. Plan to submit PA today. Educated on side effects including nausea, constipation, reflux, hair thinning. Follow-up in 4 weeks. #Obstructive sleep apnea: Follows with [facility], she had a sleep study done within the past year which showed obstructive sleep apnea. She is compliant with CPAP. Plan to start Zepbound 2.5 mg weekly injections. #Hypertension: BP today 128/84. Continue amlodipine 2.5 mg daily, losartan-HCTZ 100-12.5 mg daily. #Hypothyroidism: Continue levothyroxine 200 mcg daily. Follows closely with PCP every 3 months Patient was reassured and welcomed to the practice. We discussed that we stress a hollistic medical approach with emphasis on lifestyle modification. Patient was informed that a healthy lifestyle with exercise and good eating habits can help reduce his risk of medical complications. Patient is explained that obesity increases his risk of diabetes, cardiovascular disease, or organ damage. We spent a lot of time discussing the relationship between food, exercise, sleep, mental health and obesity. Patient was counseled on the importance EATING local, organic food when possible. Patient was educated on clean 15 and dirty dozen. I provided information about reading books called The Food Rules by Josue Alcantara and Eat Fat Get Lean by Dr Abhi Melton. Self education is important in the journey for weight management. Patient was offered diagnostic testing/ SECA scale. We want to measure visceral adiposity, advanced body composition, adverse lipids, fatty acid balance, risk for heart disease and atherosclerosis, markers of inflammation and genetic susceptibility. Patient was counseled on weight management and was advised to lose weight using A. Meal Replacement Products Patient was educated on the replacement products called optifast. This is a good way of taking fixed amount of calories. It has been shown in studies to be ineffective weight management tool. This however has to be coupled with lifestyle intervention as well as laboratory data and EKG monitoring. It is impossible to know how a person will tolerate complete meal replacement. The side effects of meal replacement and weight loss could include syncopal attacks, dizziness, gallstones, potential cholecystectomy, possible heart attack and even . The benefits of meal replacement would be potential weight loss but no guarantees can be made. Meal replacement products are not covered by insurance. Once the patient has bought these products we cannot return them B. Lifestyle management which includes several strategies as below 1. Eat a low carbohydrate good fat good protein diet. Eliminate refined carbohydrates from the diet. Limit sugared beverages. Eat local organic when possible. Cook your own meals. Read food labels. Focus on healthy snacks. Portion control and food with low glycemic index 2. Exercise regularly. Try to get at least 6000 steps a day. Use a predominant to track activity level. Consider using apps like 7 minute excercise, Foundshopping.compal, lose it, stick as needed for self-monitoring and weight management. Consider group exercises. Consider hiring a personalized living assistant. Regular exercise is crowe to sustainable health and prevents as a buffer against weight regain 3. Sleep is most important for healing. Try to sleep at least 6-8 hours a night. A good quality sleep needs a sleep ritual with ideal room temperature of around 68. It might help to take a shower and have no electronics in the room and sleep in a very dark room without artificial light. Start sleep routine and get up early in the morning and go to bed on time. 4. Make a social connection. Surround yourself with positive people with positive energy. Connect with friends and family. 5. Get into the habit of meditating and mindfulness while doing everything. 6. Go outside and connect with nature. C. Prescription medications Patient was educated on the use of prescription medications for medical weight loss. This is a growing list and includes phentermine, Topamax,Qsymia, contrave, belviq and saxenda, wegovy etc. All prescription medications could have side effects including but not limited to kidney stones, seizure disorder cardiac arrhythmias heart attack pancreatitis, GI effects, Etc. Patient was encouraged to read the prescription insert and have coaching with their pharmacist and make an informed decision about taking medication and know that these medications are being prescribed with good intentions and we do not know how a patient would react to her medication. Some medications are FDA approved for weight loss and there is also off label use depending on patient's inability to afford medications in an attempt to lose weight D. Behavioral counseling was done to establish a relationship between food and an mood. Patient was provided information about local counseling and psychiatry and Dr Padilla at [facility]. We would like to cover regular topics and build on low glycemic eating exercise mindful eating, using yoga and meditation along with deep breathing and connecting with friends and family. E. MASS PAT reviewed, Patient's current medications were reviewed and opinion was given on medication that can cause weight gain and can be substituted F. Patient was assessed for risk with obesity including and not limiting to atherosclerosis heart disease stroke kidney disease, restrictive lung disease, irritable bowel syndrome and overall mortality. Risk of developing prediabetes diabetes and metabolic syndrome was discussed G. Therapeutic plan: We have decided to make therapeutic plan which would include choosing wisely on calories restricting portion getting active, tracking weight, getting good quality sleep and working on time management H. Patient will follow up in 4 weeks for weight management Total time spent today was 60 minutes of which greater than 50% was spent on coordinating and counseling Case discussed with collaborating physician Marguerite Hardwick who reviewed the assessment and plan. Chart, medications, labs, vital signs reviewed. Dictation was accomplished with the use of Meshify voice recognition software, prone to medical misidentifications and grammatical errors. This is unintentional and the practitioner does try to identify and correct these, but some could still be present. Please do not hesitate to contact practitioner for clarification. All questions answered to patients satisfaction. Patient verbalized understanding of diagnosis and treatments explained. To call sooner prior to next visit it any questions/concerns arise. 12/14/2024 Essential hypertension (ICD-10 - I10) Esha is a 59-year-old female who presents for weight management consult. Medical history, labs, allergies, medications, and social history reviewed with the patient. Provided education on healthy diet and lifestyle which includes high-protein, low carbohydrate, high-fiber, and a variety of fruits and vegetables. Patient encouraged to exercise with emphasis on resistance training minimum 3 times per week to maintain muscle mass and cardio to burn fat. All patient questions answered. Patient will follow-up in 4 weeks for weight management. #Obesity: 11/12/2024: Weight 222 pounds, BMI 39.32. Patient has been reaching 10,000 steps per day at work and being mindful of her diet for the past 12 months, however, has been unable to lose weight. Biggest barrier currently is lack of protein and consuming 3 drinks of alcohol daily, along with no exercise regimen. Discussed lifestyle modifications including walking for 30 minutes 3-4 times per week, protein goal of 80 to 100 g/day, and limiting alcohol consumption. Discussed oral and injectable medications. Patient interested in starting Zepbound 2.5 mg weekly injections. Plan to submit PA today. Educated on side effects including nausea, constipation, reflux, hair thinning. Follow-up in 4 weeks. 12/14/2024: Weight 212.0 pounds, BMI 37.55. Patient congratulated on effort. Overall weight decreased 10 pounds, fat mass decreased 13 pounds, skeletal muscle mass increase 0.3 pounds, waist circumference increased 0.5 inches. She has been focusing on protein intake. She reports constipation for which she takes MiraLAX daily. Patient encouraged to add on a stool softener as well. Discussed protein and exercise goals. Plan to continue Zepbound 2.5 mg weekly injections. Follow-up in 4 weeks. #Obstructive sleep apnea: Follows with [facility], she had a sleep study done within the past year which showed obstructive sleep apnea. She is compliant with CPAP. #Hypertension: BP elevated today 140/90, repeat 138/80. She states she has not taken her medications today. Continue amlodipine 2.5 mg daily, losartan-HCTZ 100-12.5 mg daily. #Hypothyroidism: Continue levothyroxine 200 mcg daily. Follows closely with PCP every 3 months Patient was reassured and welcomed to the practice. We discussed that we stress a hollistic medical approach with emphasis on lifestyle modification. Patient was informed that a healthy lifestyle with exercise and good eating habits can help reduce his risk of medical complications. Patient is explained that obesity increases his risk of diabetes, cardiovascular disease, or organ damage. We spent a lot of time discussing the relationship between food, exercise, sleep, mental health and obesity. Patient was counseled on the importance EATING local, organic food when possible. Patient was educated on clean 15 and dirty dozen. I provided information about reading books called The Food Rules by Josue Alcantara and Eat Fat Get Lean by Dr Abhi Melton. Self education is important in the journey for weight management. Patient was offered diagnostic testing/ SECA scale. We want to measure visceral adiposity, advanced body composition, adverse lipids, fatty acid balance, risk for heart disease and atherosclerosis, markers of inflammation and genetic susceptibility. Patient was counseled on weight management and was advised to lose weight using A. Meal Replacement Products Patient was educated on the replacement products called optifast. This is a good way of taking fixed amount of calories. It has been shown in studies to be ineffective weight management tool. This however has to be coupled with lifestyle intervention as well as laboratory data and EKG monitoring. It is impossible to know how a person will tolerate complete meal replacement. The side effects of meal replacement and weight loss could include syncopal attacks, dizziness, gallstones, potential cholecystectomy, possible heart attack and even . The benefits of meal replacement would be potential weight loss but no guarantees can be made. Meal replacement products are not covered by insurance. Once the patient has bought these products we cannot return them B. Lifestyle management which includes several strategies as below 1. Eat a low carbohydrate good fat good protein diet. Eliminate refined carbohydrates from the diet. Limit sugared beverages. Eat local organic when possible. Cook your own meals. Read food labels. Focus on healthy snacks. Portion control and food with low glycemic index 2. Exercise regularly. Try to get at least 6000 steps a day. Use a predominant to track activity level. Consider using apps like 7 minute excercise, myStriped Sailpal, lose it, stick as needed for self-monitoring and weight management. Consider group exercises. Consider hiring a personalized living assistant. Regular exercise is crowe to sustainable health and prevents as a buffer against weight regain 3. Sleep is most important for healing. Try to sleep at least 6-8 hours a night. A good quality sleep needs a sleep ritual with ideal room temperature of around 68. It might help to take a shower and have no electronics in the room and sleep in a very dark room without artificial light. Start sleep routine and get up early in the morning and go to bed on time. 4. Make a social connection. Surround yourself with positive people with positive energy. Connect with friends and family. 5. Get into the habit of meditating and mindfulness while doing everything. 6. Go outside and connect with nature. C. Prescription medications Patient was educated on the use of prescription medications for medical weight loss. This is a growing list and includes phentermine, Topamax,Qsymia, contrave, belviq and saxenda, wegovy etc. All prescription medications could have side effects including but not limited to kidney stones, seizure disorder cardiac arrhythmias heart attack pancreatitis, GI effects, Etc. Patient was encouraged to read the prescription insert and have coaching with their pharmacist and make an informed decision about taking medication and know that these medications are being prescribed with good intentions and we do not know how a patient would react to her medication. Some medications are FDA approved for weight loss and there is also off label use depending on patient's inability to afford medications in an attempt to lose weight D. Behavioral counseling was done to establish a relationship between food and an mood. Patient was provided information about local counseling and psychiatry and Dr Padilla at [facility]. We would like to cover regular topics and build on low glycemic eating exercise mindful eating, using yoga and meditation along with deep breathing and connecting with friends and family. E. MASS PAT reviewed, Patient's current medications were reviewed and opinion was given on medication that can cause weight gain and can be substituted F. Patient was assessed for risk with obesity including and not limiting to atherosclerosis heart disease stroke kidney disease, restrictive lung disease, irritable bowel syndrome and overall mortality. Risk of developing prediabetes diabetes and metabolic syndrome was discussed G. Therapeutic plan: We have decided to make therapeutic plan which would include choosing wisely on calories restricting portion getting active, tracking weight, getting good quality sleep and working on time management H. Patient will follow up in 4 weeks for weight management Total time spent today was 60 minutes of which greater than 50% was spent on coordinating and counseling Case discussed with collaborating physician Marguerite Hardwick who reviewed the assessment and plan. Chart, medications, labs, vital signs reviewed. Dictation was accomplished with the use of Meshify voice recognition software, prone to medical misidentifications and grammatical errors. This is unintentional and the practitioner does try to identify and correct these, but some could still be present. Please do not hesitate to contact practitioner for clarification. All questions answered to patients satisfaction. Patient verbalized understanding of diagnosis and treatments explained. To call sooner prior to next visit it any questions/concerns arise. 11/12/2024 Essential hypertension (ICD-10 - I10) Esha is a 59-year-old female who presents for weight management consult. Medical history, labs, allergies, medications, and social history reviewed with the patient. Provided education on healthy diet and lifestyle which includes high-protein, low carbohydrate, high-fiber, and a variety of fruits and vegetables. Patient encouraged to exercise with emphasis on resistance training minimum 3 times per week to maintain muscle mass and cardio to burn fat. All patient questions answered. Patient will follow-up in 4 weeks for weight management. #Obesity: 11/12/2024: Weight 222 pounds, BMI 39.32. Patient has been reaching 10,000 steps per day at work and being mindful of her diet for the past 12 months, however, has been unable to lose weight. Biggest barrier currently is lack of protein and consuming 3 drinks of alcohol daily, along with no exercise regimen. Discussed lifestyle modifications including walking for 30 minutes 3-4 times per week, protein goal of 80 to 100 g/day, and limiting alcohol consumption. Discussed oral and injectable medications. Patient interested in starting Zepbound 2.5 mg weekly injections. Plan to submit PA today. Educated on side effects including nausea, constipation, reflux, hair thinning. Follow-up in 4 weeks. #Obstructive sleep apnea: Follows with [facility], she had a sleep study done within the past year which showed obstructive sleep apnea. She is compliant with CPAP. Plan to start Zepbound 2.5 mg weekly injections. #Hypertension: BP today 128/84. Continue amlodipine 2.5 mg daily, losartan-HCTZ 100-12.5 mg daily. #Hypothyroidism: Continue levothyroxine 200 mcg daily. Follows closely with PCP every 3 months Patient was reassured and welcomed to the practice. We discussed that we stress a hollistic medical approach with emphasis on lifestyle modification. Patient was informed that a healthy lifestyle with exercise and good eating habits can help reduce his risk of medical complications. Patient is explained that obesity increases his risk of diabetes, cardiovascular disease, or organ damage. We spent a lot of time discussing the relationship between food, exercise, sleep, mental health and obesity. Patient was counseled on the importance EATING local, organic food when possible. Patient was educated on clean 15 and dirty dozen. I provided information about reading books called The Food Rules by Josue Alcantara and Eat Fat Get Lean by Dr Abhi Melton. Self education is important in the journey for weight management. Patient was offered diagnostic testing/ SECA scale. We want to measure visceral adiposity, advanced body composition, adverse lipids, fatty acid balance, risk for heart disease and atherosclerosis, markers of inflammation and genetic susceptibility. Patient was counseled on weight management and was advised to lose weight using A. Meal Replacement Products Patient was educated on the replacement products called optifast. This is a good way of taking fixed amount of calories. It has been shown in studies to be ineffective weight management tool. This however has to be coupled with lifestyle intervention as well as laboratory data and EKG monitoring. It is impossible to know how a person will tolerate complete meal replacement. The side effects of meal replacement and weight loss could include syncopal attacks, dizziness, gallstones, potential cholecystectomy, possible heart attack and even . The benefits of meal replacement would be potential weight loss but no guarantees can be made. Meal replacement products are not covered by insurance. Once the patient has bought these products we cannot return them B. Lifestyle management which includes several strategies as below 1. Eat a low carbohydrate good fat good protein diet. Eliminate refined carbohydrates from the diet. Limit sugared beverages. Eat local organic when possible. Cook your own meals. Read food labels. Focus on healthy snacks. Portion control and food with low glycemic index 2. Exercise regularly. Try to get at least 6000 steps a day. Use a predominant to track activity level. Consider using apps like 7 minute excercise, myfitTru [employer]ik [employer] Corppal, lose it, stick as needed for self-monitoring and weight management. Consider group exercises. Consider hiring a personalized living assistant. Regular exercise is crowe to sustainable health and prevents as a buffer against weight regain 3. Sleep is most important for healing. Try to sleep at least 6-8 hours a night. A good quality sleep needs a sleep ritual with ideal room temperature of around 68. It might help to take a shower and have no electronics in the room and sleep in a very dark room without artificial light. Start sleep routine and get up early in the morning and go to bed on time. 4. Make a social connection. Surround yourself with positive people with positive energy. Connect with friends and family. 5. Get into the habit of meditating and mindfulness while doing everything. 6. Go outside and connect with nature. C. Prescription medications Patient was educated on the use of prescription medications for medical weight loss. This is a growing list and includes phentermine, Topamax,Qsymia, contrave, belviq and saxenda, wegovy etc. All prescription medications could have side effects including but not limited to kidney stones, seizure disorder cardiac arrhythmias heart attack pancreatitis, GI effects, Etc. Patient was encouraged to read the prescription insert and have coaching with their pharmacist and make an informed decision about taking medication and know that these medications are being prescribed with good intentions and we do not know how a patient would react to her medication. Some medications are FDA approved for weight loss and there is also off label use depending on patient's inability to afford medications in an attempt to lose weight D. Behavioral counseling was done to establish a relationship between food and an mood. Patient was provided information about local counseling and psychiatry and Dr Padilla at [facility]. We would like to cover regular topics and build on low glycemic eating exercise mindful eating, using yoga and meditation along with deep breathing and connecting with friends and family. E. MASS PAT reviewed, Patient's current medications were reviewed and opinion was given on medication that can cause weight gain and can be substituted F. Patient was assessed for risk with obesity including and not limiting to atherosclerosis heart disease stroke kidney disease, restrictive lung disease, irritable bowel syndrome and overall mortality. Risk of developing prediabetes diabetes and metabolic syndrome was discussed G. Therapeutic plan: We have decided to make therapeutic plan which would include choosing wisely on calories restricting portion getting active, tracking weight, getting good quality sleep and working on time management H. Patient will follow up in 4 weeks for weight management Total time spent today was 60 minutes of which greater than 50% was spent on coordinating and counseling Case discussed with collaborating physician Marguerite Hardwick who reviewed the assessment and plan. Chart, medications, labs, vital signs reviewed. Dictation was accomplished with the use of Meshify voice recognition software, prone to medical misidentifications and grammatical errors. This is unintentional and the practitioner does try to identify and correct these, but some could still be present. Please do not hesitate to contact practitioner for clarification. All questions answered to patients satisfaction. Patient verbalized understanding of diagnosis and treatments explained. To call sooner prior to next visit it any questions/concerns arise. 01/17/2025 Essential hypertension (ICD-10 - I10) Esha is a 59-year-old female who presents for weight management consult. Medical history, labs, allergies, medications, and social history reviewed with the patient. Provided education on healthy diet and lifestyle which includes high-protein, low carbohydrate, high-fiber, and a variety of fruits and vegetables. Patient encouraged to exercise with emphasis on resistance training minimum 3 times per week to maintain muscle mass and cardio to burn fat. All patient questions answered. Patient will follow-up in 4 weeks for weight management. #Obesity: 11/12/2024: Weight 222 pounds, BMI 39.32. Patient has been reaching 10,000 steps per day at work and being mindful of her diet for the past 12 months, however, has been unable to lose weight. Biggest barrier currently is lack of protein and consuming 3 drinks of alcohol daily, along with no exercise regimen. Discussed lifestyle modifications including walking for 30 minutes 3-4 times per week, protein goal of 80 to 100 g/day, and limiting alcohol consumption. Discussed oral and injectable medications. Patient interested in starting Zepbound 2.5 mg weekly injections. Plan to submit PA today. Educated on side effects including nausea, constipation, reflux, hair thinning. Follow-up in 4 weeks. 12/14/2024: Weight 212.0 pounds, BMI 37.55. Patient congratulated on effort. Overall weight decreased 10 pounds, fat mass decreased 13 pounds, skeletal muscle mass increase 0.3 pounds, waist circumference increased 0.5 inches. She has been focusing on protein intake. She reports constipation for which she takes MiraLAX daily. Patient encouraged to add on a stool softener as well. Discussed protein and exercise goals. Plan to continue Zepbound 2.5 mg weekly injections. Follow-up in 4 weeks. 01/17/2025: Weight 207.9 pounds, BMI 36.82. Continues on Zepbound 5 mg weekly injections. Congratulated on effort. She maintain muscle mass at 49 pounds, waist circumference went from 43 to 42.5 inches, fat mass decreased 1 pound. Educated on protein, exercise, hydration goals. Refill not required at this time. Will follow-up in 4 weeks. #Obstructive sleep apnea: Follows with [facility], she had a sleep study done within the past year which showed obstructive sleep apnea. She is compliant with CPAP. #Hypertension: Well-controlled today. Continue amlodipine 2.5 mg daily, losartan-HCTZ 100-12.5 mg daily. #Hypothyroidism: Continue levothyroxine 200 mcg daily. Follows closely with PCP every 3 months Patient was reassured and welcomed to the practice. We discussed that we stress a hollistic medical approach with emphasis on lifestyle modification. Patient was informed that a healthy lifestyle with exercise and good eating habits can help reduce his risk of medical complications. Patient is explained that obesity increases his risk of diabetes, cardiovascular disease, or organ damage. We spent a lot of time discussing the relationship between food, exercise, sleep, mental health and obesity. Patient was counseled on the importance EATING local, organic food when possible. Patient was educated on clean 15 and dirty dozen. I provided information about reading books called The Food Rules by Josue Alcantara and Eat Fat Get Lean by Dr Abhi Melton. Self education is important in the journey for weight management. Patient was offered diagnostic testing/ SECA scale. We want to measure visceral adiposity, advanced body composition, adverse lipids, fatty acid balance, risk for heart disease and atherosclerosis, markers of inflammation and genetic susceptibility. Patient was counseled on weight management and was advised to lose weight using A. Meal Replacement Products Patient was educated on the replacement products called optifast. This is a good way of taking fixed amount of calories. It has been shown in studies to be ineffective weight management tool. This however has to be coupled with lifestyle intervention as well as laboratory data and EKG monitoring. It is impossible to know how a person will tolerate complete meal replacement. The side effects of meal replacement and weight loss could include syncopal attacks, dizziness, gallstones, potential cholecystectomy, possible heart attack and even . The benefits of meal replacement would be potential weight loss but no guarantees can be made. Meal replacement products are not covered by insurance. Once the patient has bought these products we cannot return them B. Lifestyle management which includes several strategies as below 1. Eat a low carbohydrate good fat good protein diet. Eliminate refined carbohydrates from the diet. Limit sugared beverages. Eat local organic when possible. Cook your own meals. Read food labels. Focus on healthy snacks. Portion control and food with low glycemic index 2. Exercise regularly. Try to get at least 6000 steps a day. Use a predominant to track activity level. Consider using apps like 7 minute excercise, [employer]shopping[employer]compal, lose it, stick as needed for self-monitoring and weight management. Consider group exercises. Consider hiring a personalized living assistant. Regular exercise is crowe to sustainable health and prevents as a buffer against weight regain 3. Sleep is most important for healing. Try to sleep at least 6-8 hours a night. A good quality sleep needs a sleep ritual with ideal room temperature of around 68. It might help to take a shower and have no electronics in the room and sleep in a very dark room without artificial light. Start sleep routine and get up early in the morning and go to bed on time. 4. Make a social connection. Surround yourself with positive people with positive energy. Connect with friends and family. 5. Get into the habit of meditating and mindfulness while doing everything. 6. Go outside and connect with nature. C. Prescription medications Patient was educated on the use of prescription medications for medical weight loss. This is a growing list and includes phentermine, Topamax,Qsymia, contrave, belviq and saxenda, wegovy etc. All prescription medications could have side effects including but not limited to kidney stones, seizure disorder cardiac arrhythmias heart attack pancreatitis, GI effects, Etc. Patient was encouraged to read the prescription insert and have coaching with their pharmacist and make an informed decision about taking medication and know that these medications are being prescribed with good intentions and we do not know how a patient would react to her medication. Some medications are FDA approved for weight loss and there is also off label use depending on patient's inability to afford medications in an attempt to lose weight D. Behavioral counseling was done to establish a relationship between food and an mood. Patient was provided information about local counseling and psychiatry and Dr Padilla at [facility]. We would like to cover regular topics and build on low glycemic eating exercise mindful eating, using yoga and meditation along with deep breathing and connecting with friends and family. E. MASS PAT reviewed, Patient's current medications were reviewed and opinion was given on medication that can cause weight gain and can be substituted F. Patient was assessed for risk with obesity including and not limiting to atherosclerosis heart disease stroke kidney disease, restrictive lung disease, irritable bowel syndrome and overall mortality. Risk of developing prediabetes diabetes and metabolic syndrome was discussed G. Therapeutic plan: We have decided to make therapeutic plan which would include choosing wisely on calories restricting portion getting active, tracking weight, getting good quality sleep and working on time management H. Patient will follow up in 4 weeks for weight management Total time spent today was 60 minutes of which greater than 50% was spent on coordinating and counseling Case discussed with collaborating physician Marguerite Hardwick who reviewed the assessment and plan. Chart, medications, labs, vital signs reviewed. Dictation was accomplished with the use of Meshify voice recognition software, prone to medical misidentifications and grammatical errors. This is unintentional and the practitioner does try to identify and correct these, but some could still be present. Please do not hesitate to contact practitioner for clarification. All questions answered to patients satisfaction. Patient verbalized understanding of diagnosis and treatments explained. To call sooner prior to next visit it any questions/concerns arise. 01/17/2025 Prediabetes (ICD-10 - R73.03) Esha is a 59-year-old female who presents for weight management consult. Medical history, labs, allergies, medications, and social history reviewed with the patient. Provided education on healthy diet and lifestyle which includes high-protein, low carbohydrate, high-fiber, and a variety of fruits and vegetables. Patient encouraged to exercise with emphasis on resistance training minimum 3 times per week to maintain muscle mass and cardio to burn fat. All patient questions answered. Patient will follow-up in 4 weeks for weight management. #Obesity: 11/12/2024: Weight 222 pounds, BMI 39.32. Patient has been reaching 10,000 steps per day at work and being mindful of her diet for the past 12 months, however, has been unable to lose weight. Biggest barrier currently is lack of protein and consuming 3 drinks of alcohol daily, along with no exercise regimen. Discussed lifestyle modifications including walking for 30 minutes 3-4 times per week, protein goal of 80 to 100 g/day, and limiting alcohol consumption. Discussed oral and injectable medications. Patient interested in starting Zepbound 2.5 mg weekly injections. Plan to submit PA today. Educated on side effects including nausea, constipation, reflux, hair thinning. Follow-up in 4 weeks. 12/14/2024: Weight 212.0 pounds, BMI 37.55. Patient congratulated on effort. Overall weight decreased 10 pounds, fat mass decreased 13 pounds, skeletal muscle mass increase 0.3 pounds, waist circumference increased 0.5 inches. She has been focusing on protein intake. She reports constipation for which she takes MiraLAX daily. Patient encouraged to add on a stool softener as well. Discussed protein and exercise goals. Plan to continue Zepbound 2.5 mg weekly injections. Follow-up in 4 weeks. 01/17/2025: Weight 207.9 pounds, BMI 36.82. Continues on Zepbound 5 mg weekly injections. Congratulated on effort. She maintain muscle mass at 49 pounds, waist circumference went from 43 to 42.5 inches, fat mass decreased 1 pound. Educated on protein, exercise, hydration goals. Refill not required at this time. Will follow-up in 4 weeks. #Obstructive sleep apnea: Follows with [facility], she had a sleep study done within the past year which showed obstructive sleep apnea. She is compliant with CPAP. #Hypertension: Well-controlled today. Continue amlodipine 2.5 mg daily, losartan-HCTZ 100-12.5 mg daily. #Hypothyroidism: Continue levothyroxine 200 mcg daily. Follows closely with PCP every 3 months Patient was reassured and welcomed to the practice. We discussed that we stress a hollistic medical approach with emphasis on lifestyle modification. Patient was informed that a healthy lifestyle with exercise and good eating habits can help reduce his risk of medical complications. Patient is explained that obesity increases his risk of diabetes, cardiovascular disease, or organ damage. We spent a lot of time discussing the relationship between food, exercise, sleep, mental health and obesity. Patient was counseled on the importance EATING local, organic food when possible. Patient was educated on clean 15 and dirty dozen. I provided information about reading books called The Food Rules by Josue Alcantara and Eat Fat Get Lean by Dr Abhi Melton. Self education is important in the journey for weight management. Patient was offered diagnostic testing/ SECA scale. We want to measure visceral adiposity, advanced body composition, adverse lipids, fatty acid balance, risk for heart disease and atherosclerosis, markers of inflammation and genetic susceptibility. Patient was counseled on weight management and was advised to lose weight using A. Meal Replacement Products Patient was educated on the replacement products called optifast. This is a good way of taking fixed amount of calories. It has been shown in studies to be ineffective weight management tool. This however has to be coupled with lifestyle intervention as well as laboratory data and EKG monitoring. It is impossible to know how a person will tolerate complete meal replacement. The side effects of meal replacement and weight loss could include syncopal attacks, dizziness, gallstones, potential cholecystectomy, possible heart attack and even . The benefits of meal replacement would be potential weight loss but no guarantees can be made. Meal replacement products are not covered by insurance. Once the patient has bought these products we cannot return them B. Lifestyle management which includes several strategies as below 1. Eat a low carbohydrate good fat good protein diet. Eliminate refined carbohydrates from the diet. Limit sugared beverages. Eat local organic when possible. Cook your own meals. Read food labels. Focus on healthy snacks. Portion control and food with low glycemic index 2. Exercise regularly. Try to get at least 6000 steps a day. Use a predominant to track activity level. Consider using apps like 7 minute excercise, [employer]ru [employer], lose it, stick as needed for self-monitoring and weight management. Consider group exercises. Consider hiring a personalized living assistant. Regular exercise is crowe to sustainable health and prevents as a buffer against weight regain 3. Sleep is most important for healing. Try to sleep at least 6-8 hours a night. A good quality sleep needs a sleep ritual with ideal room temperature of around 68. It might help to take a shower and have no electronics in the room and sleep in a very dark room without artificial light. Start sleep routine and get up early in the morning and go to bed on time. 4. Make a social connection. Surround yourself with positive people with positive energy. Connect with friends and family. 5. Get into the habit of meditating and mindfulness while doing everything. 6. Go outside and connect with nature. C. Prescription medications Patient was educated on the use of prescription medications for medical weight loss. This is a growing list and includes phentermine, Topamax,Qsymia, contrave, belviq and saxenda, wegovy etc. All prescription medications could have side effects including but not limited to kidney stones, seizure disorder cardiac arrhythmias heart attack pancreatitis, GI effects, Etc. Patient was encouraged to read the prescription insert and have coaching with their pharmacist and make an informed decision about taking medication and know that these medications are being prescribed with good intentions and we do not know how a patient would react to her medication. Some medications are FDA approved for weight loss and there is also off label use depending on patient's inability to afford medications in an attempt to lose weight D. Behavioral counseling was done to establish a relationship between food and an mood. Patient was provided information about local counseling and psychiatry and Dr Padilla at [facility]. We would like to cover regular topics and build on low glycemic eating exercise mindful eating, using yoga and meditation along with deep breathing and connecting with friends and family. E. MASS PAT reviewed, Patient's current medications were reviewed and opinion was given on medication that can cause weight gain and can be substituted F. Patient was assessed for risk with obesity including and not limiting to atherosclerosis heart disease stroke kidney disease, restrictive lung disease, irritable bowel syndrome and overall mortality. Risk of developing prediabetes diabetes and metabolic syndrome was discussed G. Therapeutic plan: We have decided to make therapeutic plan which would include choosing wisely on calories restricting portion getting active, tracking weight, getting good quality sleep and working on time management H. Patient will follow up in 4 weeks for weight management Total time spent today was 60 minutes of which greater than 50% was spent on coordinating and counseling Case discussed with collaborating physician Marguerite Hardwick who reviewed the assessment and plan. Chart, medications, labs, vital signs reviewed. Dictation was accomplished with the use of Meshify voice recognition software, prone to medical misidentifications and grammatical errors. This is unintentional and the practitioner does try to identify and correct these, but some could still be present. Please do not hesitate to contact practitioner for clarification. All questions answered to patients satisfaction. Patient verbalized understanding of diagnosis and treatments explained. To call sooner prior to next visit it any questions/concerns arise. 11/12/2024 Acquired hypothyroidism (ICD-10 - E03.9) Esha is a 59-year-old female who presents for weight management consult. Medical history, labs, allergies, medications, and social history reviewed with the patient. Provided education on healthy diet and lifestyle which includes high-protein, low carbohydrate, high-fiber, and a variety of fruits and vegetables. Patient encouraged to exercise with emphasis on resistance training minimum 3 times per week to maintain muscle mass and cardio to burn fat. All patient questions answered. Patient will follow-up in 4 weeks for weight management. #Obesity: 11/12/2024: Weight 222 pounds, BMI 39.32. Patient has been reaching 10,000 steps per day at work and being mindful of her diet for the past 12 months, however, has been unable to lose weight. Biggest barrier currently is lack of protein and consuming 3 drinks of alcohol daily, along with no exercise regimen. Discussed lifestyle modifications including walking for 30 minutes 3-4 times per week, protein goal of 80 to 100 g/day, and limiting alcohol consumption. Discussed oral and injectable medications. Patient interested in starting Zepbound 2.5 mg weekly injections. Plan to submit PA today. Educated on side effects including nausea, constipation, reflux, hair thinning. Follow-up in 4 weeks. #Obstructive sleep apnea: Follows with [facility], she had a sleep study done within the past year which showed obstructive sleep apnea. She is compliant with CPAP. Plan to start Zepbound 2.5 mg weekly injections. #Hypertension: BP today 128/84. Continue amlodipine 2.5 mg daily, losartan-HCTZ 100-12.5 mg daily. #Hypothyroidism: Continue levothyroxine 200 mcg daily. Follows closely with PCP every 3 months Patient was reassured and welcomed to the practice. We discussed that we stress a hollistic medical approach with emphasis on lifestyle modification. Patient was informed that a healthy lifestyle with exercise and good eating habits can help reduce his risk of medical complications. Patient is explained that obesity increases his risk of diabetes, cardiovascular disease, or organ damage. We spent a lot of time discussing the relationship between food, exercise, sleep, mental health and obesity. Patient was counseled on the importance EATING local, organic food when possible. Patient was educated on clean 15 and dirty dozen. I provided information about reading books called The Food Rules by Josue Alcantara and Eat Fat Get Lean by Dr Abhi Melton. Self education is important in the journey for weight management. Patient was offered diagnostic testing/ SECA scale. We want to measure visceral adiposity, advanced body composition, adverse lipids, fatty acid balance, risk for heart disease and atherosclerosis, markers of inflammation and genetic susceptibility. Patient was counseled on weight management and was advised to lose weight using A. Meal Replacement Products Patient was educated on the replacement products called optifast. This is a good way of taking fixed amount of calories. It has been shown in studies to be ineffective weight management tool. This however has to be coupled with lifestyle intervention as well as laboratory data and EKG monitoring. It is impossible to know how a person will tolerate complete meal replacement. The side effects of meal replacement and weight loss could include syncopal attacks, dizziness, gallstones, potential cholecystectomy, possible heart attack and even . The benefits of meal replacement would be potential weight loss but no guarantees can be made. Meal replacement products are not covered by insurance. Once the patient has bought these products we cannot return them B. Lifestyle management which includes several strategies as below 1. Eat a low carbohydrate good fat good protein diet. Eliminate refined carbohydrates from the diet. Limit sugared beverages. Eat local organic when possible. Cook your own meals. Read food labels. Focus on healthy snacks. Portion control and food with low glycemic index 2. Exercise regularly. Try to get at least 6000 steps a day. Use a predominant to track activity level. Consider using apps like 7 minute excercise, myfitnesspal, lose it, stick as needed for self-monitoring and weight management. Consider group exercises. Consider hiring a personalized living assistant. Regular exercise is crowe to sustainable health and prevents as a buffer against weight regain 3. Sleep is most important for healing. Try to sleep at least 6-8 hours a night. A good quality sleep needs a sleep ritual with ideal room temperature of around 68. It might help to take a shower and have no electronics in the room and sleep in a very dark room without artificial light. Start sleep routine and get up early in the morning and go to bed on time. 4. Make a social connection. Surround yourself with positive people with positive energy. Connect with friends and family. 5. Get into the habit of meditating and mindfulness while doing everything. 6. Go outside and connect with nature. C. Prescription medications Patient was educated on the use of prescription medications for medical weight loss. This is a growing list and includes phentermine, Topamax,Qsymia, contrave, belviq and saxenda, wegovy etc. All prescription medications could have side effects including but not limited to kidney stones, seizure disorder cardiac arrhythmias heart attack pancreatitis, GI effects, Etc. Patient was encouraged to read the prescription insert and have coaching with their pharmacist and make an informed decision about taking medication and know that these medications are being prescribed with good intentions and we do not know how a patient would react to her medication. Some medications are FDA approved for weight loss and there is also off label use depending on patient's inability to afford medications in an attempt to lose weight D. Behavioral counseling was done to establish a relationship between food and an mood. Patient was provided information about local counseling and psychiatry and Dr Padilla at [facility]. We would like to cover regular topics and build on low glycemic eating exercise mindful eating, using yoga and meditation along with deep breathing and connecting with friends and family. E. MASS PAT reviewed, Patient's current medications were reviewed and opinion was given on medication that can cause weight gain and can be substituted F. Patient was assessed for risk with obesity including and not limiting to atherosclerosis heart disease stroke kidney disease, restrictive lung disease, irritable bowel syndrome and overall mortality. Risk of developing prediabetes diabetes and metabolic syndrome was discussed G. Therapeutic plan: We have decided to make therapeutic plan which would include choosing wisely on calories restricting portion getting active, tracking weight, getting good quality sleep and working on time management H. Patient will follow up in 4 weeks for weight management Total time spent today was 60 minutes of which greater than 50% was spent on coordinating and counseling Case discussed with collaborating physician Marguerite Hardwick who reviewed the assessment and plan. Chart, medications, labs, vital signs reviewed. Dictation was accomplished with the use of Meshify voice recognition software, prone to medical misidentifications and grammatical errors. This is unintentional and the practitioner does try to identify and correct these, but some could still be present. Please do not hesitate to contact practitioner for clarification. All questions answered to patients satisfaction. Patient verbalized understanding of diagnosis and treatments explained. To call sooner prior to next visit it any questions/concerns arise. 12/14/2024 Prediabetes (ICD-10 - R73.03) Esha is a 59-year-old female who presents for weight management consult. Medical history, labs, allergies, medications, and social history reviewed with the patient. Provided education on healthy diet and lifestyle which includes high-protein, low carbohydrate, high-fiber, and a variety of fruits and vegetables. Patient encouraged to exercise with emphasis on resistance training minimum 3 times per week to maintain muscle mass and cardio to burn fat. All patient questions answered. Patient will follow-up in 4 weeks for weight management. #Obesity: 11/12/2024: Weight 222 pounds, BMI 39.32. Patient has been reaching 10,000 steps per day at work and being mindful of her diet for the past 12 months, however, has been unable to lose weight. Biggest barrier currently is lack of protein and consuming 3 drinks of alcohol daily, along with no exercise regimen. Discussed lifestyle modifications including walking for 30 minutes 3-4 times per week, protein goal of 80 to 100 g/day, and limiting alcohol consumption. Discussed oral and injectable medications. Patient interested in starting Zepbound 2.5 mg weekly injections. Plan to submit PA today. Educated on side effects including nausea, constipation, reflux, hair thinning. Follow-up in 4 weeks. 12/14/2024: Weight 212.0 pounds, BMI 37.55. Patient congratulated on effort. Overall weight decreased 10 pounds, fat mass decreased 13 pounds, skeletal muscle mass increase 0.3 pounds, waist circumference increased 0.5 inches. She has been focusing on protein intake. She reports constipation for which she takes MiraLAX daily. Patient encouraged to add on a stool softener as well. Discussed protein and exercise goals. Plan to continue Zepbound 2.5 mg weekly injections. Follow-up in 4 weeks. #Obstructive sleep apnea: Follows with [facility], she had a sleep study done within the past year which showed obstructive sleep apnea. She is compliant with CPAP. #Hypertension: BP elevated today 140/90, repeat 138/80. She states she has not taken her medications today. Continue amlodipine 2.5 mg daily, losartan-HCTZ 100-12.5 mg daily. #Hypothyroidism: Continue levothyroxine 200 mcg daily. Follows closely with PCP every 3 months Patient was reassured and welcomed to the practice. We discussed that we stress a hollistic medical approach with emphasis on lifestyle modification. Patient was informed that a healthy lifestyle with exercise and good eating habits can help reduce his risk of medical complications. Patient is explained that obesity increases his risk of diabetes, cardiovascular disease, or organ damage. We spent a lot of time discussing the relationship between food, exercise, sleep, mental health and obesity. Patient was counseled on the importance EATING local, organic food when possible. Patient was educated on clean 15 and dirty dozen. I provided information about reading books called The Food Rules by Josue Alcantara and Eat Fat Get Lean by Dr Abhi Melton. Self education is important in the journey for weight management. Patient was offered diagnostic testing/ SECA scale. We want to measure visceral adiposity, advanced body composition, adverse lipids, fatty acid balance, risk for heart disease and atherosclerosis, markers of inflammation and genetic susceptibility. Patient was counseled on weight management and was advised to lose weight using A. Meal Replacement Products Patient was educated on the replacement products called optifast. This is a good way of taking fixed amount of calories. It has been shown in studies to be ineffective weight management tool. This however has to be coupled with lifestyle intervention as well as laboratory data and EKG monitoring. It is impossible to know how a person will tolerate complete meal replacement. The side effects of meal replacement and weight loss could include syncopal attacks, dizziness, gallstones, potential cholecystectomy, possible heart attack and even . The benefits of meal replacement would be potential weight loss but no guarantees can be made. Meal replacement products are not covered by insurance. Once the patient has bought these products we cannot return them B. Lifestyle management which includes several strategies as below 1. Eat a low carbohydrate good fat good protein diet. Eliminate refined carbohydrates from the diet. Limit sugared beverages. Eat local organic when possible. Cook your own meals. Read food labels. Focus on healthy snacks. Portion control and food with low glycemic index 2. Exercise regularly. Try to get at least 6000 steps a day. Use a predominant to track activity level. Consider using apps like 7 minute excercise, Foundshopping.compal, lose it, stick as needed for self-monitoring and weight management. Consider group exercises. Consider hiring a personalized living assistant. Regular exercise is crowe to sustainable health and prevents as a buffer against weight regain 3. Sleep is most important for healing. Try to sleep at least 6-8 hours a night. A good quality sleep needs a sleep ritual with ideal room temperature of around 68. It might help to take a shower and have no electronics in the room and sleep in a very dark room without artificial light. Start sleep routine and get up early in the morning and go to bed on time. 4. Make a social connection. Surround yourself with positive people with positive energy. Connect with friends and family. 5. Get into the habit of meditating and mindfulness while doing everything. 6. Go outside and connect with nature. C. Prescription medications Patient was educated on the use of prescription medications for medical weight loss. This is a growing list and includes phentermine, Topamax,Qsymia, contrave, belviq and saxenda, wegovy etc. All prescription medications could have side effects including but not limited to kidney stones, seizure disorder cardiac arrhythmias heart attack pancreatitis, GI effects, Etc. Patient was encouraged to read the prescription insert and have coaching with their pharmacist and make an informed decision about taking medication and know that these medications are being prescribed with good intentions and we do not know how a patient would react to her medication. Some medications are FDA approved for weight loss and there is also off label use depending on patient's inability to afford medications in an attempt to lose weight D. Behavioral counseling was done to establish a relationship between food and an mood. Patient was provided information about local counseling and psychiatry and Dr Padilla at [facility]. We would like to cover regular topics and build on low glycemic eating exercise mindful eating, using yoga and meditation along with deep breathing and connecting with friends and family. E. MASS PAT reviewed, Patient's current medications were reviewed and opinion was given on medication that can cause weight gain and can be substituted F. Patient was assessed for risk with obesity including and not limiting to atherosclerosis heart disease stroke kidney disease, restrictive lung disease, irritable bowel syndrome and overall mortality. Risk of developing prediabetes diabetes and metabolic syndrome was discussed G. Therapeutic plan: We have decided to make therapeutic plan which would include choosing wisely on calories restricting portion getting active, tracking weight, getting good quality sleep and working on time management H. Patient will follow up in 4 weeks for weight management Total time spent today was 60 minutes of which greater than 50% was spent on coordinating and counseling Case discussed with collaborating physician Marguerite Hardwick who reviewed the assessment and plan. Chart, medications, labs, vital signs reviewed. Dictation was accomplished with the use of Meshify voice recognition software, prone to medical misidentifications and grammatical errors. This is unintentional and the practitioner does try to identify and correct these, but some could still be present. Please do not hesitate to contact practitioner for clarification. All questions answered to patients satisfaction. Patient verbalized understanding of diagnosis and treatments explained. To call sooner prior to next visit it any questions/concerns arise. 12/14/2024 Acquired hypothyroidism (ICD-10 - E03.9) Esha is a 59-year-old female who presents for weight management consult. Medical history, labs, allergies, medications, and social history reviewed with the patient. Provided education on healthy diet and lifestyle which includes high-protein, low carbohydrate, high-fiber, and a variety of fruits and vegetables. Patient encouraged to exercise with emphasis on resistance training minimum 3 times per week to maintain muscle mass and cardio to burn fat. All patient questions answered. Patient will follow-up in 4 weeks for weight management. #Obesity: 11/12/2024: Weight 222 pounds, BMI 39.32. Patient has been reaching 10,000 steps per day at work and being mindful of her diet for the past 12 months, however, has been unable to lose weight. Biggest barrier currently is lack of protein and consuming 3 drinks of alcohol daily, along with no exercise regimen. Discussed lifestyle modifications including walking for 30 minutes 3-4 times per week, protein goal of 80 to 100 g/day, and limiting alcohol consumption. Discussed oral and injectable medications. Patient interested in starting Zepbound 2.5 mg weekly injections. Plan to submit PA today. Educated on side effects including nausea, constipation, reflux, hair thinning. Follow-up in 4 weeks. 12/14/2024: Weight 212.0 pounds, BMI 37.55. Patient congratulated on effort. Overall weight decreased 10 pounds, fat mass decreased 13 pounds, skeletal muscle mass increase 0.3 pounds, waist circumference increased 0.5 inches. She has been focusing on protein intake. She reports constipation for which she takes MiraLAX daily. Patient encouraged to add on a stool softener as well. Discussed protein and exercise goals. Plan to continue Zepbound 2.5 mg weekly injections. Follow-up in 4 weeks. #Obstructive sleep apnea: Follows with [facility], she had a sleep study done within the past year which showed obstructive sleep apnea. She is compliant with CPAP. #Hypertension: BP elevated today 140/90, repeat 138/80. She states she has not taken her medications today. Continue amlodipine 2.5 mg daily, losartan-HCTZ 100-12.5 mg daily. #Hypothyroidism: Continue levothyroxine 200 mcg daily. Follows closely with PCP every 3 months Patient was reassured and welcomed to the practice. We discussed that we stress a hollistic medical approach with emphasis on lifestyle modification. Patient was informed that a healthy lifestyle with exercise and good eating habits can help reduce his risk of medical complications. Patient is explained that obesity increases his risk of diabetes, cardiovascular disease, or organ damage. We spent a lot of time discussing the relationship between food, exercise, sleep, mental health and obesity. Patient was counseled on the importance EATING local, organic food when possible. Patient was educated on clean 15 and dirty dozen. I provided information about reading books called The Food Rules by Josue Alcantara and Eat Fat Get Lean by Dr Abhi Melton. Self education is important in the journey for weight management. Patient was offered diagnostic testing/ SECA scale. We want to measure visceral adiposity, advanced body composition, adverse lipids, fatty acid balance, risk for heart disease and atherosclerosis, markers of inflammation and genetic susceptibility. Patient was counseled on weight management and was advised to lose weight using A. Meal Replacement Products Patient was educated on the replacement products called optifast. This is a good way of taking fixed amount of calories. It has been shown in studies to be ineffective weight management tool. This however has to be coupled with lifestyle intervention as well as laboratory data and EKG monitoring. It is impossible to know how a person will tolerate complete meal replacement. The side effects of meal replacement and weight loss could include syncopal attacks, dizziness, gallstones, potential cholecystectomy, possible heart attack and even . The benefits of meal replacement would be potential weight loss but no guarantees can be made. Meal replacement products are not covered by insurance. Once the patient has bought these products we cannot return them B. Lifestyle management which includes several strategies as below 1. Eat a low carbohydrate good fat good protein diet. Eliminate refined carbohydrates from the diet. Limit sugared beverages. Eat local organic when possible. Cook your own meals. Read food labels. Focus on healthy snacks. Portion control and food with low glycemic index 2. Exercise regularly. Try to get at least 6000 steps a day. Use a predominant to track activity level. Consider using apps like 7 minute excercise, Foundshopping.compal, lose it, stick as needed for self-monitoring and weight management. Consider group exercises. Consider hiring a personalized living assistant. Regular exercise is crowe to sustainable health and prevents as a buffer against weight regain 3. Sleep is most important for healing. Try to sleep at least 6-8 hours a night. A good quality sleep needs a sleep ritual with ideal room temperature of around 68. It might help to take a shower and have no electronics in the room and sleep in a very dark room without artificial light. Start sleep routine and get up early in the morning and go to bed on time. 4. Make a social connection. Surround yourself with positive people with positive energy. Connect with friends and family. 5. Get into the habit of meditating and mindfulness while doing everything. 6. Go outside and connect with nature. C. Prescription medications Patient was educated on the use of prescription medications for medical weight loss. This is a growing list and includes phentermine, Topamax,Qsymia, contrave, belviq and saxenda, wegovy etc. All prescription medications could have side effects including but not limited to kidney stones, seizure disorder cardiac arrhythmias heart attack pancreatitis, GI effects, Etc. Patient was encouraged to read the prescription insert and have coaching with their pharmacist and make an informed decision about taking medication and know that these medications are being prescribed with good intentions and we do not know how a patient would react to her medication. Some medications are FDA approved for weight loss and there is also off label use depending on patient's inability to afford medications in an attempt to lose weight D. Behavioral counseling was done to establish a relationship between food and an mood. Patient was provided information about local counseling and psychiatry and Dr Padilla at [facility]. We would like to cover regular topics and build on low glycemic eating exercise mindful eating, using yoga and meditation along with deep breathing and connecting with friends and family. E. MASS PAT reviewed, Patient's current medications were reviewed and opinion was given on medication that can cause weight gain and can be substituted F. Patient was assessed for risk with obesity including and not limiting to atherosclerosis heart disease stroke kidney disease, restrictive lung disease, irritable bowel syndrome and overall mortality. Risk of developing prediabetes diabetes and metabolic syndrome was discussed G. Therapeutic plan: We have decided to make therapeutic plan which would include choosing wisely on calories restricting portion getting active, tracking weight, getting good quality sleep and working on time management H. Patient will follow up in 4 weeks for weight management Total time spent today was 60 minutes of which greater than 50% was spent on coordinating and counseling Case discussed with collaborating physician Marguerite Hardwick who reviewed the assessment and plan. Chart, medications, labs, vital signs reviewed. Dictation was accomplished with the use of Meshify voice recognition software, prone to medical misidentifications and grammatical errors. This is unintentional and the practitioner does try to identify and correct these, but some could still be present. Please do not hesitate to contact practitioner for clarification. All questions answered to patients satisfaction. Patient verbalized understanding of diagnosis and treatments explained. To call sooner prior to next visit it any questions/concerns arise. 11/12/2024 Encounter for examination of blood pressure without abnormal findings (ICD-10 - Z01.30) Esha is a 59-year-old female who presents for weight management consult. Medical history, labs, allergies, medications, and social history reviewed with the patient. Provided education on healthy diet and lifestyle which includes high-protein, low carbohydrate, high-fiber, and a variety of fruits and vegetables. Patient encouraged to exercise with emphasis on resistance training minimum 3 times per week to maintain muscle mass and cardio to burn fat. All patient questions answered. Patient will follow-up in 4 weeks for weight management. #Obesity: 11/12/2024: Weight 222 pounds, BMI 39.32. Patient has been reaching 10,000 steps per day at work and being mindful of her diet for the past 12 months, however, has been unable to lose weight. Biggest barrier currently is lack of protein and consuming 3 drinks of alcohol daily, along with no exercise regimen. Discussed lifestyle modifications including walking for 30 minutes 3-4 times per week, protein goal of 80 to 100 g/day, and limiting alcohol consumption. Discussed oral and injectable medications. Patient interested in starting Zepbound 2.5 mg weekly injections. Plan to submit PA today. Educated on side effects including nausea, constipation, reflux, hair thinning. Follow-up in 4 weeks. #Obstructive sleep apnea: Follows with [facility], she had a sleep study done within the past year which showed obstructive sleep apnea. She is compliant with CPAP. Plan to start Zepbound 2.5 mg weekly injections. #Hypertension: BP today 128/84. Continue amlodipine 2.5 mg daily, losartan-HCTZ 100-12.5 mg daily. #Hypothyroidism: Continue levothyroxine 200 mcg daily. Follows closely with PCP every 3 months Patient was reassured and welcomed to the practice. We discussed that we stress a hollistic medical approach with emphasis on lifestyle modification. Patient was informed that a healthy lifestyle with exercise and good eating habits can help reduce his risk of medical complications. Patient is explained that obesity increases his risk of diabetes, cardiovascular disease, or organ damage. We spent a lot of time discussing the relationship between food, exercise, sleep, mental health and obesity. Patient was counseled on the importance EATING local, organic food when possible. Patient was educated on clean 15 and dirty dozen. I provided information about reading books called The Food Rules by Josue Alcantara and Eat Fat Get Lean by Dr Abhi Melton. Self education is important in the journey for weight management. Patient was offered diagnostic testing/ SECA scale. We want to measure visceral adiposity, advanced body composition, adverse lipids, fatty acid balance, risk for heart disease and atherosclerosis, markers of inflammation and genetic susceptibility. Patient was counseled on weight management and was advised to lose weight using A. Meal Replacement Products Patient was educated on the replacement products called optifast. This is a good way of taking fixed amount of calories. It has been shown in studies to be ineffective weight management tool. This however has to be coupled with lifestyle intervention as well as laboratory data and EKG monitoring. It is impossible to know how a person will tolerate complete meal replacement. The side effects of meal replacement and weight loss could include syncopal attacks, dizziness, gallstones, potential cholecystectomy, possible heart attack and even . The benefits of meal replacement would be potential weight loss but no guarantees can be made. Meal replacement products are not covered by insurance. Once the patient has bought these products we cannot return them B. Lifestyle management which includes several strategies as below 1. Eat a low carbohydrate good fat good protein diet. Eliminate refined carbohydrates from the diet. Limit sugared beverages. Eat local organic when possible. Cook your own meals. Read food labels. Focus on healthy snacks. Portion control and food with low glycemic index 2. Exercise regularly. Try to get at least 6000 steps a day. Use a predominant to track activity level. Consider using apps like 7 minute excercise, myStriped Sailpal, lose it, stick as needed for self-monitoring and weight management. Consider group exercises. Consider hiring a personalized living assistant. Regular exercise is crowe to sustainable health and prevents as a buffer against weight regain 3. Sleep is most important for healing. Try to sleep at least 6-8 hours a night. A good quality sleep needs a sleep ritual with ideal room temperature of around 68. It might help to take a shower and have no electronics in the room and sleep in a very dark room without artificial light. Start sleep routine and get up early in the morning and go to bed on time. 4. Make a social connection. Surround yourself with positive people with positive energy. Connect with friends and family. 5. Get into the habit of meditating and mindfulness while doing everything. 6. Go outside and connect with nature. C. Prescription medications Patient was educated on the use of prescription medications for medical weight loss. This is a growing list and includes phentermine, Topamax,Qsymia, contrave, belviq and saxenda, wegovy etc. All prescription medications could have side effects including but not limited to kidney stones, seizure disorder cardiac arrhythmias heart attack pancreatitis, GI effects, Etc. Patient was encouraged to read the prescription insert and have coaching with their pharmacist and make an informed decision about taking medication and know that these medications are being prescribed with good intentions and we do not know how a patient would react to her medication. Some medications are FDA approved for weight loss and there is also off label use depending on patient's inability to afford medications in an attempt to lose weight D. Behavioral counseling was done to establish a relationship between food and an mood. Patient was provided information about local counseling and psychiatry and Dr Padilla at [facility]. We would like to cover regular topics and build on low glycemic eating exercise mindful eating, using yoga and meditation along with deep breathing and connecting with friends and family. E. MASS PAT reviewed, Patient's current medications were reviewed and opinion was given on medication that can cause weight gain and can be substituted F. Patient was assessed for risk with obesity including and not limiting to atherosclerosis heart disease stroke kidney disease, restrictive lung disease, irritable bowel syndrome and overall mortality. Risk of developing prediabetes diabetes and metabolic syndrome was discussed G. Therapeutic plan: We have decided to make therapeutic plan which would include choosing wisely on calories restricting portion getting active, tracking weight, getting good quality sleep and working on time management H. Patient will follow up in 4 weeks for weight management Total time spent today was 60 minutes of which greater than 50% was spent on coordinating and counseling Case discussed with collaborating physician Marguerite Hardwick who reviewed the assessment and plan. Chart, medications, labs, vital signs reviewed. Dictation was accomplished with the use of Meshify voice recognition software, prone to medical misidentifications and grammatical errors. This is unintentional and the practitioner does try to identify and correct these, but some could still be present. Please do not hesitate to contact practitioner for clarification. All questions answered to patients satisfaction. Patient verbalized understanding of diagnosis and treatments explained. To call sooner prior to next visit it any questions/concerns arise. 01/17/2025 Acquired hypothyroidism (ICD-10 - E03.9) Esha is a 59-year-old female who presents for weight management consult. Medical history, labs, allergies, medications, and social history reviewed with the patient. Provided education on healthy diet and lifestyle which includes high-protein, low carbohydrate, high-fiber, and a variety of fruits and vegetables. Patient encouraged to exercise with emphasis on resistance training minimum 3 times per week to maintain muscle mass and cardio to burn fat. All patient questions answered. Patient will follow-up in 4 weeks for weight management. #Obesity: 11/12/2024: Weight 222 pounds, BMI 39.32. Patient has been reaching 10,000 steps per day at work and being mindful of her diet for the past 12 months, however, has been unable to lose weight. Biggest barrier currently is lack of protein and consuming 3 drinks of alcohol daily, along with no exercise regimen. Discussed lifestyle modifications including walking for 30 minutes 3-4 times per week, protein goal of 80 to 100 g/day, and limiting alcohol consumption. Discussed oral and injectable medications. Patient interested in starting Zepbound 2.5 mg weekly injections. Plan to submit PA today. Educated on side effects including nausea, constipation, reflux, hair thinning. Follow-up in 4 weeks. 12/14/2024: Weight 212.0 pounds, BMI 37.55. Patient congratulated on effort. Overall weight decreased 10 pounds, fat mass decreased 13 pounds, skeletal muscle mass increase 0.3 pounds, waist circumference increased 0.5 inches. She has been focusing on protein intake. She reports constipation for which she takes MiraLAX daily. Patient encouraged to add on a stool softener as well. Discussed protein and exercise goals. Plan to continue Zepbound 2.5 mg weekly injections. Follow-up in 4 weeks. 01/17/2025: Weight 207.9 pounds, BMI 36.82. Continues on Zepbound 5 mg weekly injections. Congratulated on effort. She maintain muscle mass at 49 pounds, waist circumference went from 43 to 42.5 inches, fat mass decreased 1 pound. Educated on protein, exercise, hydration goals. Refill not required at this time. Will follow-up in 4 weeks. #Obstructive sleep apnea: Follows with [facility], she had a sleep study done within the past year which showed obstructive sleep apnea. She is compliant with CPAP. #Hypertension: Well-controlled today. Continue amlodipine 2.5 mg daily, losartan-HCTZ 100-12.5 mg daily. #Hypothyroidism: Continue levothyroxine 200 mcg daily. Follows closely with PCP every 3 months Patient was reassured and welcomed to the practice. We discussed that we stress a hollistic medical approach with emphasis on lifestyle modification. Patient was informed that a healthy lifestyle with exercise and good eating habits can help reduce his risk of medical complications. Patient is explained that obesity increases his risk of diabetes, cardiovascular disease, or organ damage. We spent a lot of time discussing the relationship between food, exercise, sleep, mental health and obesity. Patient was counseled on the importance EATING local, organic food when possible. Patient was educated on clean 15 and dirty dozen. I provided information about reading books called The Food Rules by Josue Alcantara and Eat Fat Get Lean by Dr Abhi Melton. Self education is important in the journey for weight management. Patient was offered diagnostic testing/ SECA scale. We want to measure visceral adiposity, advanced body composition, adverse lipids, fatty acid balance, risk for heart disease and atherosclerosis, markers of inflammation and genetic susceptibility. Patient was counseled on weight management and was advised to lose weight using A. Meal Replacement Products Patient was educated on the replacement products called optifast. This is a good way of taking fixed amount of calories. It has been shown in studies to be ineffective weight management tool. This however has to be coupled with lifestyle intervention as well as laboratory data and EKG monitoring. It is impossible to know how a person will tolerate complete meal replacement. The side effects of meal replacement and weight loss could include syncopal attacks, dizziness, gallstones, potential cholecystectomy, possible heart attack and even . The benefits of meal replacement would be potential weight loss but no guarantees can be made. Meal replacement products are not covered by insurance. Once the patient has bought these products we cannot return them B. Lifestyle management which includes several strategies as below 1. Eat a low carbohydrate good fat good protein diet. Eliminate refined carbohydrates from the diet. Limit sugared beverages. Eat local organic when possible. Cook your own meals. Read food labels. Focus on healthy snacks. Portion control and food with low glycemic index 2. Exercise regularly. Try to get at least 6000 steps a day. Use a predominant to track activity level. Consider using apps like 7 minute excercise, myfitnesspal, lose it, stick as needed for self-monitoring and weight management. Consider group exercises. Consider hiring a personalized living assistant. Regular exercise is crowe to sustainable health and prevents as a buffer against weight regain 3. Sleep is most important for healing. Try to sleep at least 6-8 hours a night. A good quality sleep needs a sleep ritual with ideal room temperature of around 68. It might help to take a shower and have no electronics in the room and sleep in a very dark room without artificial light. Start sleep routine and get up early in the morning and go to bed on time. 4. Make a social connection. Surround yourself with positive people with positive energy. Connect with friends and family. 5. Get into the habit of meditating and mindfulness while doing everything. 6. Go outside and connect with nature. C. Prescription medications Patient was educated on the use of prescription medications for medical weight loss. This is a growing list and includes phentermine, Topamax,Qsymia, contrave, belviq and saxenda, wegovy etc. All prescription medications could have side effects including but not limited to kidney stones, seizure disorder cardiac arrhythmias heart attack pancreatitis, GI effects, Etc. Patient was encouraged to read the prescription insert and have coaching with their pharmacist and make an informed decision about taking medication and know that these medications are being prescribed with good intentions and we do not know how a patient would react to her medication. Some medications are FDA approved for weight loss and there is also off label use depending on patient's inability to afford medications in an attempt to lose weight D. Behavioral counseling was done to establish a relationship between food and an mood. Patient was provided information about local counseling and psychiatry and Dr Padilla at [facility]. We would like to cover regular topics and build on low glycemic eating exercise mindful eating, using yoga and meditation along with deep breathing and connecting with friends and family. E. MASS PAT reviewed, Patient's current medications were reviewed and opinion was given on medication that can cause weight gain and can be substituted F. Patient was assessed for risk with obesity including and not limiting to atherosclerosis heart disease stroke kidney disease, restrictive lung disease, irritable bowel syndrome and overall mortality. Risk of developing prediabetes diabetes and metabolic syndrome was discussed G. Therapeutic plan: We have decided to make therapeutic plan which would include choosing wisely on calories restricting portion getting active, tracking weight, getting good quality sleep and working on time management H. Patient will follow up in 4 weeks for weight management Total time spent today was 60 minutes of which greater than 50% was spent on coordinating and counseling Case discussed with collaborating physician Marguerite Hardwick who reviewed the assessment and plan. Chart, medications, labs, vital signs reviewed. Dictation was accomplished with the use of Meshify voice recognition software, prone to medical misidentifications and grammatical errors. This is unintentional and the practitioner does try to identify and correct these, but some could still be present. Please do not hesitate to contact practitioner for clarification. All questions answered to patients satisfaction. Patient verbalized understanding of diagnosis and treatments explained. To call sooner prior to next visit it any questions/concerns arise. 11/12/2024 Prediabetes (ICD-10 - R73.03) Esha is a 59-year-old female who presents for weight management consult. Medical history, labs, allergies, medications, and social history reviewed with the patient. Provided education on healthy diet and lifestyle which includes high-protein, low carbohydrate, high-fiber, and a variety of fruits and vegetables. Patient encouraged to exercise with emphasis on resistance training minimum 3 times per week to maintain muscle mass and cardio to burn fat. All patient questions answered. Patient will follow-up in 4 weeks for weight management. #Obesity: 11/12/2024: Weight 222 pounds, BMI 39.32. Patient has been reaching 10,000 steps per day at work and being mindful of her diet for the past 12 months, however, has been unable to lose weight. Biggest barrier currently is lack of protein and consuming 3 drinks of alcohol daily, along with no exercise regimen. Discussed lifestyle modifications including walking for 30 minutes 3-4 times per week, protein goal of 80 to 100 g/day, and limiting alcohol consumption. Discussed oral and injectable medications. Patient interested in starting Zepbound 2.5 mg weekly injections. Plan to submit PA today. Educated on side effects including nausea, constipation, reflux, hair thinning. Follow-up in 4 weeks. #Obstructive sleep apnea: Follows with [facility], she had a sleep study done within the past year which showed obstructive sleep apnea. She is compliant with CPAP. Plan to start Zepbound 2.5 mg weekly injections. #Hypertension: BP today 128/84. Continue amlodipine 2.5 mg daily, losartan-HCTZ 100-12.5 mg daily. #Hypothyroidism: Continue levothyroxine 200 mcg daily. Follows closely with PCP every 3 months Patient was reassured and welcomed to the practice. We discussed that we stress a hollistic medical approach with emphasis on lifestyle modification. Patient was informed that a healthy lifestyle with exercise and good eating habits can help reduce his risk of medical complications. Patient is explained that obesity increases his risk of diabetes, cardiovascular disease, or organ damage. We spent a lot of time discussing the relationship between food, exercise, sleep, mental health and obesity. Patient was counseled on the importance EATING local, organic food when possible. Patient was educated on clean 15 and dirty dozen. I provided information about reading books called The Food Rules by Josue Alcantara and Eat Fat Get Lean by Dr Abhi Melton. Self education is important in the journey for weight management. Patient was offered diagnostic testing/ SECA scale. We want to measure visceral adiposity, advanced body composition, adverse lipids, fatty acid balance, risk for heart disease and atherosclerosis, markers of inflammation and genetic susceptibility. Patient was counseled on weight management and was advised to lose weight using A. Meal Replacement Products Patient was educated on the replacement products called optifast. This is a good way of taking fixed amount of calories. It has been shown in studies to be ineffective weight management tool. This however has to be coupled with lifestyle intervention as well as laboratory data and EKG monitoring. It is impossible to know how a person will tolerate complete meal replacement. The side effects of meal replacement and weight loss could include syncopal attacks, dizziness, gallstones, potential cholecystectomy, possible heart attack and even . The benefits of meal replacement would be potential weight loss but no guarantees can be made. Meal replacement products are not covered by insurance. Once the patient has bought these products we cannot return them B. Lifestyle management which includes several strategies as below 1. Eat a low carbohydrate good fat good protein diet. Eliminate refined carbohydrates from the diet. Limit sugared beverages. Eat local organic when possible. Cook your own meals. Read food labels. Focus on healthy snacks. Portion control and food with low glycemic index 2. Exercise regularly. Try to get at least 6000 steps a day. Use a predominant to track activity level. Consider using apps like 7 minute excercise, myfitTru [employer], lose it, stick as needed for self-monitoring and weight management. Consider group exercises. Consider hiring a personalized living assistant. Regular exercise is crowe to sustainable health and prevents as a buffer against weight regain 3. Sleep is most important for healing. Try to sleep at least 6-8 hours a night. A good quality sleep needs a sleep ritual with ideal room temperature of around 68. It might help to take a shower and have no electronics in the room and sleep in a very dark room without artificial light. Start sleep routine and get up early in the morning and go to bed on time. 4. Make a social connection. Surround yourself with positive people with positive energy. Connect with friends and family. 5. Get into the habit of meditating and mindfulness while doing everything. 6. Go outside and connect with nature. C. Prescription medications Patient was educated on the use of prescription medications for medical weight loss. This is a growing list and includes phentermine, Topamax,Qsymia, contrave, belviq and saxenda, wegovy etc. All prescription medications could have side effects including but not limited to kidney stones, seizure disorder cardiac arrhythmias heart attack pancreatitis, GI effects, Etc. Patient was encouraged to read the prescription insert and have coaching with their pharmacist and make an informed decision about taking medication and know that these medications are being prescribed with good intentions and we do not know how a patient would react to her medication. Some medications are FDA approved for weight loss and there is also off label use depending on patient's inability to afford medications in an attempt to lose weight D. Behavioral counseling was done to establish a relationship between food and an mood. Patient was provided information about local counseling and psychiatry and Dr Padilla at [facility]. We would like to cover regular topics and build on low glycemic eating exercise mindful eating, using yoga and meditation along with deep breathing and connecting with friends and family. E. MASS PAT reviewed, Patient's current medications were reviewed and opinion was given on medication that can cause weight gain and can be substituted F. Patient was assessed for risk with obesity including and not limiting to atherosclerosis heart disease stroke kidney disease, restrictive lung disease, irritable bowel syndrome and overall mortality. Risk of developing prediabetes diabetes and metabolic syndrome was discussed G. Therapeutic plan: We have decided to make therapeutic plan which would include choosing wisely on calories restricting portion getting active, tracking weight, getting good quality sleep and working on time management H. Patient will follow up in 4 weeks for weight management Total time spent today was 60 minutes of which greater than 50% was spent on coordinating and counseling Case discussed with collaborating physician Marguerite Hardwick who reviewed the assessment and plan. Chart, medications, labs, vital signs reviewed. Dictation was accomplished with the use of Meshify voice recognition software, prone to medical misidentifications and grammatical errors. This is unintentional and the practitioner does try to identify and correct these, but some could still be present. Please do not hesitate to contact practitioner for clarification. All questions answered to patients satisfaction. Patient verbalized understanding of diagnosis and treatments explained. To call sooner prior to next visit it any questions/concerns arise. 12/14/2024 Encounter for examination of blood pressure without abnormal findings (ICD-10 - Z01.30) Esha is a 59-year-old female who presents for weight management consult. Medical history, labs, allergies, medications, and social history reviewed with the patient. Provided education on healthy diet and lifestyle which includes high-protein, low carbohydrate, high-fiber, and a variety of fruits and vegetables. Patient encouraged to exercise with emphasis on resistance training minimum 3 times per week to maintain muscle mass and cardio to burn fat. All patient questions answered. Patient will follow-up in 4 weeks for weight management. #Obesity: 11/12/2024: Weight 222 pounds, BMI 39.32. Patient has been reaching 10,000 steps per day at work and being mindful of her diet for the past 12 months, however, has been unable to lose weight. Biggest barrier currently is lack of protein and consuming 3 drinks of alcohol daily, along with no exercise regimen. Discussed lifestyle modifications including walking for 30 minutes 3-4 times per week, protein goal of 80 to 100 g/day, and limiting alcohol consumption. Discussed oral and injectable medications. Patient interested in starting Zepbound 2.5 mg weekly injections. Plan to submit PA today. Educated on side effects including nausea, constipation, reflux, hair thinning. Follow-up in 4 weeks. 12/14/2024: Weight 212.0 pounds, BMI 37.55. Patient congratulated on effort. Overall weight decreased 10 pounds, fat mass decreased 13 pounds, skeletal muscle mass increase 0.3 pounds, waist circumference increased 0.5 inches. She has been focusing on protein intake. She reports constipation for which she takes MiraLAX daily. Patient encouraged to add on a stool softener as well. Discussed protein and exercise goals. Plan to continue Zepbound 2.5 mg weekly injections. Follow-up in 4 weeks. #Obstructive sleep apnea: Follows with [facility], she had a sleep study done within the past year which showed obstructive sleep apnea. She is compliant with CPAP. #Hypertension: BP elevated today 140/90, repeat 138/80. She states she has not taken her medications today. Continue amlodipine 2.5 mg daily, losartan-HCTZ 100-12.5 mg daily. #Hypothyroidism: Continue levothyroxine 200 mcg daily. Follows closely with PCP every 3 months Patient was reassured and welcomed to the practice. We discussed that we stress a hollistic medical approach with emphasis on lifestyle modification. Patient was informed that a healthy lifestyle with exercise and good eating habits can help reduce his risk of medical complications. Patient is explained that obesity increases his risk of diabetes, cardiovascular disease, or organ damage. We spent a lot of time discussing the relationship between food, exercise, sleep, mental health and obesity. Patient was counseled on the importance EATING local, organic food when possible. Patient was educated on clean 15 and dirty dozen. I provided information about reading books called The Food Rules by Josue Alcantara and Eat Fat Get Lean by Dr Abhi Melton. Self education is important in the journey for weight management. Patient was offered diagnostic testing/ SECA scale. We want to measure visceral adiposity, advanced body composition, adverse lipids, fatty acid balance, risk for heart disease and atherosclerosis, markers of inflammation and genetic susceptibility. Patient was counseled on weight management and was advised to lose weight using A. Meal Replacement Products Patient was educated on the replacement products called optifast. This is a good way of taking fixed amount of calories. It has been shown in studies to be ineffective weight management tool. This however has to be coupled with lifestyle intervention as well as laboratory data and EKG monitoring. It is impossible to know how a person will tolerate complete meal replacement. The side effects of meal replacement and weight loss could include syncopal attacks, dizziness, gallstones, potential cholecystectomy, possible heart attack and even . The benefits of meal replacement would be potential weight loss but no guarantees can be made. Meal replacement products are not covered by insurance. Once the patient has bought these products we cannot return them B. Lifestyle management which includes several strategies as below 1. Eat a low carbohydrate good fat good protein diet. Eliminate refined carbohydrates from the diet. Limit sugared beverages. Eat local organic when possible. Cook your own meals. Read food labels. Focus on healthy snacks. Portion control and food with low glycemic index 2. Exercise regularly. Try to get at least 6000 steps a day. Use a predominant to track activity level. Consider using apps like 7 minute excercise, myZinionesspal, lose it, stick as needed for self-monitoring and weight management. Consider group exercises. Consider hiring a personalized living assistant. Regular exercise is crowe to sustainable health and prevents as a buffer against weight regain 3. Sleep is most important for healing. Try to sleep at least 6-8 hours a night. A good quality sleep needs a sleep ritual with ideal room temperature of around 68. It might help to take a shower and have no electronics in the room and sleep in a very dark room without artificial light. Start sleep routine and get up early in the morning and go to bed on time. 4. Make a social connection. Surround yourself with positive people with positive energy. Connect with friends and family. 5. Get into the habit of meditating and mindfulness while doing everything. 6. Go outside and connect with nature. C. Prescription medications Patient was educated on the use of prescription medications for medical weight loss. This is a growing list and includes phentermine, Topamax,Qsymia, contrave, belviq and saxenda, wegovy etc. All prescription medications could have side effects including but not limited to kidney stones, seizure disorder cardiac arrhythmias heart attack pancreatitis, GI effects, Etc. Patient was encouraged to read the prescription insert and have coaching with their pharmacist and make an informed decision about taking medication and know that these medications are being prescribed with good intentions and we do not know how a patient would react to her medication. Some medications are FDA approved for weight loss and there is also off label use depending on patient's inability to afford medications in an attempt to lose weight D. Behavioral counseling was done to establish a relationship between food and an mood. Patient was provided information about local counseling and psychiatry and Dr Padilla at [facility]. We would like to cover regular topics and build on low glycemic eating exercise mindful eating, using yoga and meditation along with deep breathing and connecting with friends and family. E. MASS PAT reviewed, Patient's current medications were reviewed and opinion was given on medication that can cause weight gain and can be substituted F. Patient was assessed for risk with obesity including and not limiting to atherosclerosis heart disease stroke kidney disease, restrictive lung disease, irritable bowel syndrome and overall mortality. Risk of developing prediabetes diabetes and metabolic syndrome was discussed G. Therapeutic plan: We have decided to make therapeutic plan which would include choosing wisely on calories restricting portion getting active, tracking weight, getting good quality sleep and working on time management H. Patient will follow up in 4 weeks for weight management Total time spent today was 60 minutes of which greater than 50% was spent on coordinating and counseling Case discussed with collaborating physician Marguerite Hardwick who reviewed the assessment and plan. Chart, medications, labs, vital signs reviewed. Dictation was accomplished with the use of Meshify voice recognition software, prone to medical misidentifications and grammatical errors. This is unintentional and the practitioner does try to identify and correct these, but some could still be present. Please do not hesitate to contact practitioner for clarification. All questions answered to patients satisfaction. Patient verbalized understanding of diagnosis and treatments explained. To call sooner prior to next visit it any questions/concerns arise. 01/17/2025 Encounter for examination of blood pressure without abnormal findings (ICD-10 - Z01.30) Esha is a 59-year-old female who presents for weight management consult. Medical history, labs, allergies, medications, and social history reviewed with the patient. Provided education on healthy diet and lifestyle which includes high-protein, low carbohydrate, high-fiber, and a variety of fruits and vegetables. Patient encouraged to exercise with emphasis on resistance training minimum 3 times per week to maintain muscle mass and cardio to burn fat. All patient questions answered. Patient will follow-up in 4 weeks for weight management. #Obesity: 11/12/2024: Weight 222 pounds, BMI 39.32. Patient has been reaching 10,000 steps per day at work and being mindful of her diet for the past 12 months, however, has been unable to lose weight. Biggest barrier currently is lack of protein and consuming 3 drinks of alcohol daily, along with no exercise regimen. Discussed lifestyle modifications including walking for 30 minutes 3-4 times per week, protein goal of 80 to 100 g/day, and limiting alcohol consumption. Discussed oral and injectable medications. Patient interested in starting Zepbound 2.5 mg weekly injections. Plan to submit PA today. Educated on side effects including nausea, constipation, reflux, hair thinning. Follow-up in 4 weeks. 12/14/2024: Weight 212.0 pounds, BMI 37.55. Patient congratulated on effort. Overall weight decreased 10 pounds, fat mass decreased 13 pounds, skeletal muscle mass increase 0.3 pounds, waist circumference increased 0.5 inches. She has been focusing on protein intake. She reports constipation for which she takes MiraLAX daily. Patient encouraged to add on a stool softener as well. Discussed protein and exercise goals. Plan to continue Zepbound 2.5 mg weekly injections. Follow-up in 4 weeks. 01/17/2025: Weight 207.9 pounds, BMI 36.82. Continues on Zepbound 5 mg weekly injections. Congratulated on effort. She maintain muscle mass at 49 pounds, waist circumference went from 43 to 42.5 inches, fat mass decreased 1 pound. Educated on protein, exercise, hydration goals. Refill not required at this time. Will follow-up in 4 weeks. #Obstructive sleep apnea: Follows with [facility], she had a sleep study done within the past year which showed obstructive sleep apnea. She is compliant with CPAP. #Hypertension: Well-controlled today. Continue amlodipine 2.5 mg daily, losartan-HCTZ 100-12.5 mg daily. #Hypothyroidism: Continue levothyroxine 200 mcg daily. Follows closely with PCP every 3 months Patient was reassured and welcomed to the practice. We discussed that we stress a hollistic medical approach with emphasis on lifestyle modification. Patient was informed that a healthy lifestyle with exercise and good eating habits can help reduce his risk of medical complications. Patient is explained that obesity increases his risk of diabetes, cardiovascular disease, or organ damage. We spent a lot of time discussing the relationship between food, exercise, sleep, mental health and obesity. Patient was counseled on the importance EATING local, organic food when possible. Patient was educated on clean 15 and dirty dozen. I provided information about reading books called The Food Rules by Josue Alcantara and Eat Fat Get Lean by Dr Abhi Melton. Self education is important in the journey for weight management. Patient was offered diagnostic testing/ SECA scale. We want to measure visceral adiposity, advanced body composition, adverse lipids, fatty acid balance, risk for heart disease and atherosclerosis, markers of inflammation and genetic susceptibility. Patient was counseled on weight management and was advised to lose weight using A. Meal Replacement Products Patient was educated on the replacement products called optifast. This is a good way of taking fixed amount of calories. It has been shown in studies to be ineffective weight management tool. This however has to be coupled with lifestyle intervention as well as laboratory data and EKG monitoring. It is impossible to know how a person will tolerate complete meal replacement. The side effects of meal replacement and weight loss could include syncopal attacks, dizziness, gallstones, potential cholecystectomy, possible heart attack and even . The benefits of meal replacement would be potential weight loss but no guarantees can be made. Meal replacement products are not covered by insurance. Once the patient has bought these products we cannot return them B. Lifestyle management which includes several strategies as below 1. Eat a low carbohydrate good fat good protein diet. Eliminate refined carbohydrates from the diet. Limit sugared beverages. Eat local organic when possible. Cook your own meals. Read food labels. Focus on healthy snacks. Portion control and food with low glycemic index 2. Exercise regularly. Try to get at least 6000 steps a day. Use a predominant to track activity level. Consider using apps like 7 minute excercise, Foundshopping.compal, lose it, stick as needed for self-monitoring and weight management. Consider group exercises. Consider hiring a personalized living assistant. Regular exercise is crowe to sustainable health and prevents as a buffer against weight regain 3. Sleep is most important for healing. Try to sleep at least 6-8 hours a night. A good quality sleep needs a sleep ritual with ideal room temperature of around 68. It might help to take a shower and have no electronics in the room and sleep in a very dark room without artificial light. Start sleep routine and get up early in the morning and go to bed on time. 4. Make a social connection. Surround yourself with positive people with positive energy. Connect with friends and family. 5. Get into the habit of meditating and mindfulness while doing everything. 6. Go outside and connect with nature. C. Prescription medications Patient was educated on the use of prescription medications for medical weight loss. This is a growing list and includes phentermine, Topamax,Qsymia, contrave, belviq and saxenda, wegovy etc. All prescription medications could have side effects including but not limited to kidney stones, seizure disorder cardiac arrhythmias heart attack pancreatitis, GI effects, Etc. Patient was encouraged to read the prescription insert and have coaching with their pharmacist and make an informed decision about taking medication and know that these medications are being prescribed with good intentions and we do not know how a patient would react to her medication. Some medications are FDA approved for weight loss and there is also off label use depending on patient's inability to afford medications in an attempt to lose weight D. Behavioral counseling was done to establish a relationship between food and an mood. Patient was provided information about local counseling and psychiatry and Dr Padilla at [facility]. We would like to cover regular topics and build on low glycemic eating exercise mindful eating, using yoga and meditation along with deep breathing and connecting with friends and family. E. MASS PAT reviewed, Patient's current medications were reviewed and opinion was given on medication that can cause weight gain and can be substituted F. Patient was assessed for risk with obesity including and not limiting to atherosclerosis heart disease stroke kidney disease, restrictive lung disease, irritable bowel syndrome and overall mortality. Risk of developing prediabetes diabetes and metabolic syndrome was discussed G. Therapeutic plan: We have decided to make therapeutic plan which would include choosing wisely on calories restricting portion getting active, tracking weight, getting good quality sleep and working on time management H. Patient will follow up in 4 weeks for weight management Total time spent today was 60 minutes of which greater than 50% was spent on coordinating and counseling Case discussed with collaborating physician Marguerite Hardwick who reviewed the assessment and plan. Chart, medications, labs, vital signs reviewed. Dictation was accomplished with the use of [employer] voice recognition software, prone to medical misidentifications and grammatical errors. This is unintentional and the practitioner does try to identify and correct these, but some could still be present. Please do not hesitate to contact practitioner for clarification. All questions answered to patients satisfaction. Patient verbalized understanding of diagnosis and treatments explained. To call sooner prior to next visit it any questions/concerns arise. Plan Of Treatment Next Appt Details Provider Name:Teagan Hill bradley, 02/21/2025 03:00:00 PM, [address] [facility], [facility] [address], [place], [address], Insurance Providers Payer Name Payer Address Payer Phone Subscriber Number Group Number Insured Name Patient Relationship to Insured Coverage Start Date Coverage End Date [facility] [address] [place] [address] [phone] [id number] ESHA [place] Self - patient is the insured 4 Medical (General) History Medical History History ICD Code Hypertension, essential I10 Hypothyroidism, unspecified type E03.9 Obstructive apnea G47.33 Surgical History Surgery Date(Month/Year) cholecystectomy 1999 breast augmentation 2006 tubal ligation 2000 Hospitalization History Reason Date(Month/Year) cholecystectomy 1999
--- OUTSIDE RECORDS SUMMARY | 2025-01-27 13:50 | XMS_ITS | Patient Health Record ---
[facility] Address [address] [place] [address] Care Team Providers Care Radiation Oncologist Name Role Phone Johnathan Zayas Primary Care Provider Yudi Boss [phone] Allergies Allergen (clinical drug ingredient) Drug/Non Drug [...] X ray : Foot, left 3V 10/01/2022 [id number] TENDON SHEATH/LIGAMENT 0 10/01/2022 Insurance Providers Payer Name Payer Address Payer Phone Subscriber Number Group Number Insured Name Patient Relationship to Insured Coverage Start Date Coverage End Date [facility] [address] [facility] [place], [place] [address] [id number] Esha Freire Self - patient is the insured Medical (General) History Medical History History ICD Code High blood pressure thyroid Chicken pox Surgical History Surgery Date(Month/Year)
[2025-01-27 13:55] VITALS: BP 118/58; PULSE 87; O2SAT 97; BMI 35.1
--- NOTE | 2025-01-27 13:55 | A.OFFPC_ITS ---
Vital Signs 01/27/25 13:55 Height 5 ft 4 in Weight 204 lb 8 oz BMI 35.1 BP 118/58 L Blood Pressure Location Lt brachial Position Sitting Pulse 87 Pulse Source Pulse Oximeter Pulse Oximetry (%) 97 Intake Visit Reasons: obesity Willow Machine Tender Required: No Accompanied by: Self / Same As Patient Allergies lisinopril Adverse Reaction (Intermediate, Verified 01/27/25 13:57) Cough Tobacco use date assessed: 01/27/25 Dental Screening Dental Screen Date: 07/01/24 Did you have a dental visit in the last 12 months?: Yes Did you have a dental problem in the last 6 months where you did not have access to dental care?: No Was dental information given to patient?: Patient has dentist [facility] Medical History Visual problems COVID-19 virus infection Plantar fasciitis of left foot Meralgia paresthetica of left side Hearing deficit Tubular adenoma of colon Colon cancer screening Glaucoma Anxiety and depression Obesity (BMI 30-39.9) Vitamin D deficiency Hypertension Hypothyroid Peripheral vascular disease Fatty liver Surgical History Hx of colonoscopy History of breast mammoplasty History of cholecystectomy History of tubal ligation Family History Father CVA (cerebrovascular accident due to intracerebral hemorrhage) Stroke Mother No problems noted. Sister Depression Son Drug abuse Brother CVA (cerebrovascular accident due to intracerebral hemorrhage) Social History Housing: House Alcohol intake: current Alcohol intake frequency: a few times a week Patient Tobacco Use Status: Never used Tobacco Tobacco use type: Cigarette e-Cigarette/Vaping Use: Never Used Second Hand Smoke Exposure: No service: No Current occupational status: employed Current occupational exposures/hazards: No Cognitive needs: No Hearing needs: No Vision needs: Yes Questionnaire Thrive Questionnaire Date Thrive assessed: 10/07/24 I am a: Patient What is your living situation today?: I have a steady place to live Within the past 12 months, did the food you bought not last and you didn't have the money to get more?: Never true Within the past 12 months, did you worry whether your food would run out before you got money to buy more?: Never true Do you have trouble paying for medicines?: No Do you have trouble getting transportation to medical appointments?: No Do you have trouble paying your heating and electricity bill?: No Do you have trouble taking care of your child, family member or friend?: No Do you have trouble with day-to-day activities such as bathing, preparing meals, shopping, managing finances, etc.?: No Are you currently unemployed and looking for a job?: No Are you interested in more education?: No Please select the resources that you would like help with: None Currently or been in a relationship where the following occur: I choose not to answer THRIVE Score: 0 AUDIT C Alcohol Use Questionnaire (AUDIT-C) 1. How often do you have a drink containing alcohol?: 2-3 times a week 2. How many drinks containing alcohol do you have on a typical day when you are drinking?: 1 or 2 3. How often do you have six or more drinks on one occasion?: Monthly Total Score: 5 DANI-7 AMB Questionnaire DANI-7 Date DANI - 7 assessed: 07/01/24 Feeling nervous, anxious, or on edge: 0 = Not at all Not being able to stop or control worryin = Not at all Worrying too much about different things: 0 = Not at all Trouble relaxin = Not at all Being so restless that it is hard to sit still: 0 = Not at all Becoming easily annoyed or irritable: 0 = Not at all Feeling afraid as if something awful might happen: 0 = Not at all Total DANI-7 score (0-4 normal; 5-9 mild; 10-14 moderate; 15-21 severe): 0 Source: Developed by Drs. Inocencio Hernandez, Trini Calle, Maximilian Conway and colleagues, with an educational denise from [employer]. Physical exam (Primary Care) Vital Signs: Last Vital Signs Pulse 87 01/27/25 13:55 BP 118/58 L 01/27/25 13:55 Pulse Ox 97 01/27/25 13:55 BMI result Body Mass Index 35.1 Tobacco/Smoking Status: Tobacco use Status Tobacco use date assessed 01/27/25 01/27/25 14:00 Patient Tobacco Use Status Never used Tobacco 01/27/25 14:00 Tobacco use type Cigarette 01/27/25 14:00 e-Cigarette/Vaping Use Never Used 01/27/25 14:00 Thrive Assessment: Date of Thrive Assessment Date Thrive assessed 10/07/24 01/27/25 14:00 Currently or been in a relationship where the following occur: I choose not to answer Const General: alert; No acute distress Eyes Conjunctivae: conjunctivae normal Resp Auscultation: clear to auscultation bilaterally Cardio Rate: regular rate Rhythm: regular rhythm GI Inspection: Yes normal to inspection Extrem General: Yes normal to inspection and No edema Coding Level of Care Code Est Pt Level 4 (32625) Complex EM visit Add On G2211 Diagnoses Essential hypertension I10 Hypertension type: essential hypertension Hypercholesterolemia E78.00 Impaired glucose tolerance R73.02 Acquired hypothyroidism E03.9 Hypothyroidism type: acquired Obesity (BMI 30-39.9) E66.9 Fatty liver K76.0 Obstructive sleep apnea G47.33 Assessment & Plan Assessment & Plan (1) Hypertension: Code(s): I10 - Essential (primary) hypertension Category: Medical Qualifiers: Hypertension type: essential hypertension Qualified Code(s): I10 - Essential (primary) hypertension Plan: Continue with blood pressure medication. Decrease salt intake and exercise patient on amlodipine 2.5 mg once a day losartan hydrochlorothiazide 100/12.5 mg once a day (2) Hypercholesterolemia: Code(s): E78.00 - Pure hypercholesterolemia, unspecified Category: Medical Plan: Avoid fried foods, chicken skin, eggs, butter margarine, pastries and meat. Be it pork or beef they have a lot of cholesterol LDL goal of less than 130 and triglyceride of less than 150 patient is diet controlled (3) Impaired glucose tolerance: Code(s): R73.02 - Impaired glucose tolerance (oral) Category: Medical Plan: Decrease the amount of carbohydrate intake, pasta, bread, rice and potatoes are all sugar and that is aside from all the sweet stuff, remember that fruits are good but they are Sweet also. (4) Hypothyroid: Code(s): E03.9 - Hypothyroidism, unspecified Category: Medical Qualifiers: Hypothyroidism type: acquired Qualified Code(s): E03.9 - Hypothyroidism, unspecified Plan: Continue with thyroid medication (5) Obesity (BMI 30-39.9): Code(s): E66.9 - Obesity, unspecified Category: Medical Plan: Diet and exercise. Patient on Zepbound (6) Fatty liver: Comment: October 2023 Code(s): K76.0 - Fatty (change of) liver, not elsewhere classified Category: Medical Plan: Low-fat diet and exercise (7) Obstructive sleep apnea: Comment: sleep study done May 2024 showing obstructive sleep apnea moderately severe AHI 25 the crease advise auto PAP mode 6-20 cm water Code(s): G47.33 - Obstructive sleep apnea (adult) (pediatric) Category: Medical Plan: Continue to use the CPAP more than 4 hours a night and benefits from this. Plan History of Present Illness The patient is a 59-year-old female presenting for a follow-up visit. The patient has a history of obesity, with a noted weight loss of 15 pounds since October. She has hypertension, managed with amlodipine and losartan hydrochlorothiazide. Her blood pressure is currently well-controlled. The patient has hypothyroidism, with thyroid function tests retested in October showing good results. She continues on her thyroid medication. The patient has impaired glucose tolerance, with a hemoglobin A1c of 5.7 noted in June. A follow-up blood work is planned to monitor her glucose levels. The patient has nonalcoholic fatty liver disease, with elevated liver function tests noted. She is advised to maintain a no-fat diet and exercise regimen. The patient has a history of tubular adenoma of the colon, with her colonoscopy up to date as of 2022. The patient has generalized anxiety disorder and is currently managing her symptoms. The patient has asthma and uses a CPAP machine for obstructive sleep apnea, which she finds beneficial. She reports using the CPAP machine for more than 4 hours a night. The patient has hypercholesterolemia, with an LDL level of 118 noted. Her cholesterol management plan includes maintaining an LDL goal of less than 130 and triglycerides of less than 150. The patient reports epiphora and was diagnosed with dry eye syndrome. She underwent nasal lacrimal probing and irrigation and was prescribed prednisolone 1% eye drop suspension. Health Maintenance - Colonoscopy up to date as of 2022 - Mammogram up to date - Advised to maintain a no-fat diet and exercise regimen for liver health - CPAP usage for obstructive sleep apnea, more than 4 hours a night Social History Review of Systems - General: Reports weight loss of 15 pounds since October - Ophthalmologic: Reports bilateral tearing and dry eyes - Respiratory: Reports using CPAP for obstructive sleep apnea - Gastrointestinal: Denies constipation, reports regular bowel movements every two to three days Physical Exam Results - Labs: Hemoglobin A1c of 5.7 in June - Labs: Elevated liver function tests - Labs: LDL cholesterol level of 118 - Labs: Normal blood count, electrolytes, renal function, and blood sugar Plan The patient will continue with her current antihypertensive regimen of amlodipine and losartan hydrochlorothiazide, as her blood pressure is well- controlled. Her thyroid function will be monitored, and she will continue her current thyroid medication. A follow-up blood work is planned to monitor her glucose levels, given her impaired glucose tolerance and previous hemoglobin A1c of 5.7. The patient is advised to maintain a no-fat diet and exercise regimen to manage her nonalcoholic fatty liver disease. Her cholesterol management plan includes maintaining an LDL goal of less than 130 and triglycerides of less than 150. The patient will continue using her CPAP machine for obstructive sleep apnea, as it is beneficial for her condition. For her dry eye syndrome, she will continue using prednisolone 1% eye drop suspension and follow up with her medical billing service as needed. Patient was informed and verbally consented to the use of an ambient scribe for clinic note documentation during this visit. Discussion Notes During the visit, we discussed the management of the patient's hypertension, hypothyroidism, and impaired glucose tolerance. We reviewed her current medications and emphasized the importance of adherence to her prescribed regimen. We also discussed the need for lifestyle modifications, including a no- fat diet and regular exercise, to manage her nonalcoholic fatty liver disease. The patient was advised to continue using her CPAP machine for obstructive sleep apnea and to follow up with her medical billing service for her dry eye syndrome. Patient Instructions - Continue taking amlodipine and losartan hydrochlorothiazide as prescribed. - Maintain a no-fat diet and engage in regular exercise. - Use CPAP machine for more than 4 hours each night. - Follow up with medical billing service for dry eye syndrome management. - Schedule follow-up blood work to monitor glucose levels. Orders: Orders Free T4 (Free Thyroxine) Today E03.9 - Hypothyroidism, unspecified Hemoglobin A1c Today E03.9 - Hypothyroidism, unspecified Complete Blood Count Auto Diff Today E03.9 - Hypothyroidism, unspecified Vitamin D 25-OH Total Today E03.9 - Hypothyroidism, unspecified Thyroid Stimulating Hormone Today E03.9 - Hypothyroidism, unspecified Comprehensive Met. Panel Today E03.9 - Hypothyroidism, unspecified Lipid Panel Today E03.9 - Hypothyroidism, unspecified, E78.00 - Pure hypercholesterolemia, unspecified Vitamin B12 and Folate Today E03.9 - Hypothyroidism, unspecified Medications: Changed From tirzepatide (weight loss) (Zepbound) for 4 weeks 2.5 mg (0.5 mL) subcut QWEEK 2 mL 0RF E66.9 - Obesity, unspecified To tirzepatide (weight loss) for 4 weeks 5 mg (0.5 mL) subcut QWEEK 2 mL 0RF E66.9 - Obesity, unspecified
== END 2025-01-27 14:21 | disposition home or self-care (01) ==
LOC: HO.HMCH 13:40
PROVIDERS: PCP Internal Medicine; Visit Provider Internal Medicine
DX: I10 Essential (primary) hypertension (principal); E78.00 Pure hypercholesterolemia, unspecified; E66.9 Obesity, unspecified; Z68.35 Body mass index [BMI] 35.0-35.9, adult; R73.02 Impaired glucose tolerance (oral); E03.9 Hypothyroidism, unspecified; K76.0 Fatty (change of) liver, not elsewhere classified; G47.33 Obstructive sleep apnea (adult) (pediatric)

== ENCOUNTER 2025-04-09 07:29 | Outpatient (REF) | payer OTHER, SELFPAY ==
--- OUTSIDE RECORDS SUMMARY | 2018-04-03 05:28 | XMS_ITS | Continuity of Care Document ---
Author Organization [facility] [employer] Address [address] [place] [address] Phone Care Team Providers Care Technical Services Rep Name Role Phone Nursing, Visit Unavailable Unavailable Allergies, Adverse Reactions, Alerts Substance Reaction Status Criticality No Known Allergies Active No Inform ation Medications Medication Instructions Dosage Effective Dates (start - stop) Status Comments ranitidine 150 mg tablet take 1 tablet by oral route 2 times every day - Active Problems Condition Type Effective Dates (start - stop) Clini olga Status Comments No Known Problems Procedures Procedure Date HC PRO PHONE CALL 5-10 MIN OFFICE/VISIT, EST ROUTINE VENIPUNCTURE [id number], DNA (Q) OFFICE/VISIT, EST OFFICE/VISIT, EST ROUTINE VENIPUNCTURE [id number]- Hep C W/Reflex (P) [id number] A1C (P) [id number] T4 (P) [id number] (P) [id number] Panel (P) PREV VISIT, NEW, AGE 12-17 ROUTINE VENIPUNCTURE [id number]/CT (P) [id number] A1C (P) [id number]- HIV 1/2 AG & AB 4TH GENERATION (P) [id number] Panel (P) [id number] (P) F.I.T KIT GIVEN OFFICE/OUTPATIENT VISIT, NEW [id number] - Thin Prep W/ Reflex To HPV (P ) Colon Rectal Cancer Screening 7 Colon Rectal Cancer Screening Advance Directives Directive Yes / No Effective Date File Name No Information Encounters Encounter Description Practice Location Reason(s) For Visit Diagnoses Date Provider Providers Copied on Encounter [facility] n, [address] [place], [address], tel:[phone] [facility] No Information 8 Nursing Visit. [address], [place], [id number], . tel:[phone] [facility] n, [address] [place], [address], [place] tel:[phone] [facility] Encntr for pediatric allergist exam (general) (routine) w/o abn findings Nursing Visit. [address], [place], [id number], [place]. tel:[phone] OFFICE/VISIT , [facility] n, [address] [place], [address], [place] tel:[phone] [facility] Flu-like symptoms (chief complaint) Sore throat 8 No Information OFFICE/VISIT , [facility] n, [address] [place], [address], [place] tel:[phone] [facility] f/U LABS (chief complaint) Reflux gastritisHIV antibody positive 8 No Information OFFICE/VISIT , [facility] n, [address] [place], [address], [place] tel:[phone] [facility] reflux (chief complaint) weight loss (chief complaint) PrediabetesReflux gastritisWeight loss, unintentionalSoft tissue swelling of back 8 No Information PREV VISIT, NEW, AGE 12-17 [facility] n, [address], [place], [address], [place] tel:[phone] [facility] Colitis - LUQ pain (chief complaint) PE (physical exam), routineChronic GERD 7 No Information OFFICE/OUTPA TIENT VISIT, NEW [facility] n, [address], [place], [address], [place] tel:[phone] [facility] annual exam (chief complaint) Pap smear for cervical cancer screeningEncounte r for screening for malignant neoplasm of colon No Information Family History Family Member Type Diagnosis Age At Onset No Information Immunizations Vaccine Date Status Comments Influenza, injectable, quadrivalent, preservative free, 3 yrs or older refused Source: New Immuniz ation Record Tdap administered Source: Other P rovider Payers Payer name Insurance type Covered republican ID Authoriza tion(s) [facility] [id number] Social History Type Description Quantity Date Captured Comments Alcohol Use Details Unknown Caffeine Use Details Unknown Tobacco Use Status No Information Smoking Status No Information Sex Female Chief Complaint And Reason For Visit No Information Reason For Referral Reason For Referral No Information Plan Of Treatment Date Type Action Status Goal Tdap due Goal Shingrix (1st). Due on due Goal Mammogram. Due on 8 due Goal Influenza vaccine. Due on due Goal Health Literacy Assessment. Due on due Goal Depression screening. Due on due Goal FIT. Due on due Goal Colonoscopy. Due on 018 due Goal CPE. Due on due Goal TB Risk Assessment. Due on O due Referral Ordered: Gastroenterology (related to Weight loss, unintentional) ordered Referral Ordered: Radiology (related to Soft tissue swelling of back) ordered Referral Ordered: Referrals: Radiology. Evaluate and treat ordered Referral Ordered: Referrals: Gastroenterology ordered Referral Ordered: Diagnostic Radiology (related to Pap smear for cervical cancer screening) ordered Referral Ordered: Referrals: Diagnostic Radiology ordered Future Order: Lab Order Helicoba cter Pylori Ab, Eia Stool ($) ([id number]), Ordered on: Ordered History Of Present Illness Encounter Date Complaint History Of Prese nt Illness Flu-like symptoms The symptoms b kisha 2 days ago. The symptoms have remained unchanged. The symptoms occur constantly. The patient presents with sore throat. The patient does not present with abdominal pain, anorexia, arthralgia, back pain, chills, cough, diarrhea, earache, fatigue, fever, generalized weakness, headache, lymphadenopathy, myalgia, nausea, pharyngitis or vomiting. The symptoms are not aggravated by change in environment, cold liquids, exertion, lack of sleep or stress. The patient had a response to increased fluids. The patient denies any associated symptoms. The patient denies change in appetite, change in sleep cycle, constipation, diaphoresis, dizziness, dyspnea, hoarseness, increased abdominal girth, jaundice, lightheadedness, malaise, melena, neck stiffness, pruritus, rash, reduced urine output, somnolence, weight gain and weight loss. Additional information: Sorness and burning in thrat x 2 days since breathing a cleaning agent. 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 f/U LABS wants to follow up on her labs and results of stool test reflux The symptoms beg an 6 years ago. The symptoms are reported as being moderate. Associated symptoms include unintentional weight loss. Pertinent negatives include dysphagia. She states the symptoms are chronic. Patient has had reflux on and off for years. No fevers,dysphagia, blood in stools or tarry stool but does report unintentional weight loss. 7 lbs in 8 months per her report. weight loss The patient is l osing weight. Associated symptoms include constipation. Pertinent negatives include cold intolerance, decreased appetite, diaphoresis, diarrhea, heat intolerance, increased thirst,polyuria, syncope, tremors, vision changes and vomiting. Additional information: Patient reports great appetite but is still losing weight. Colitis - LUQ pain 51 F here to establish care- c/o constipatio when eating red meat and reflux- h/o left upper quadrant pain now resolved. PMH - gerdMeds - nonePSH - R varicose veins surgery SH - no t/e/dTdap 2013last pap/mammo 2016 annual exam : 4. Francesca ty: Term: 4. Livin. Last LMP was 10/16/2016. Her menses is irregular with spotting flow with a frequency of every 28 days. Negative for: breast discharge, breast lump(s), breast pain and breast self exam. Menopausal symptoms positive for: hot flashes, insomnia, night sweats and vaginal dryness. Associated symptoms include anxiety, depression and dyspareunia. Pertinent negatives include abnormal bleeding (hematology), abnormal vaginal bleeding, decreased libido, difficulty falling sleep, history of infertility, nocturia, sexual dysfunction, sleep disturbances, urinary incontinence, urinary urgency, vaginal discharge and vaginal itching. She does take multivitamins. The patient does not use tobacco. She does drink alcohol. Functional Status Date Functional Assessmen t No Information Instructions Date Instruction Additional Infor jenna Normal exam with neg ative strep. Discussed fluids, rest. Education: Education provided considers health literacy level. Patient states/demonstrates understanding of the assessment, plan, and health education provided. F/u if symptoms worsen or persist. Go to ER for severe Symptoms Related to Sore throat -will order HIV RNA PCR to rule out HIV Related to HIV antibody positive -repeat stool specim en for hpylori-GI referral placed last visit given weight loss in the setting of persistent reflux symptoms Related to Reflux gastritis -mammogram-GI referr al placed-ordered labs as mentioned above to check for diabetes Related to Weight loss, unintentional decrease red meat in take and spicy intake trial of ranitidine Related to Chronic GERD labs today optometry referraltdap utd bring FIT test Related to PE (physical exam), routine self breast exam, CA & Vit D, exercise, mammogram if indicated Related to Pap smear for cervical cancer screening all questions answer ed, pt verbalized understanding Related to Pap smear for cervical cancer screening Assessments Type Assessment Date No Information Patient Care Teams Name Effective Dates (start - stop) Status Members No Information
--- NOTE | ~2025-04-09 | MM_ITS ---
EXAMINATION: MM SCREENING DIGITAL BREAST TOMOSYNTHESIS, BILATERAL CLINICAL INFORMATION: Screening. Asymptomatic. COMPARISON: Mammography: Comparison is made with available priors TECHNIQUE: Digital breast mammography with tomosynthesis is performed in both the craniocaudal and mediolateral oblique views along with computer-aided detection (CAD). FINDINGS: There are scattered areas of fibroglandular density. Bilateral reduction mammoplasty. There are no significant masses, abnormal calcifications, or other abnormalities. MM/MM tomosynthesis screening BI IMPRESSION: No mammographic evidence of malignancy. ASSESSMENT: BI-RADS Category 2: Benign RECOMMENDATION: Routine annual mammography screening. 1 year F/U This examination should not preclude the clinical evaluation of a suspicious palpable abnormality. This patient's information was entered into a reminder system with a target due date for their next mammogram. Electronically signed by: Cony Azevedo DO 04/12/2025 02:32 PM JOSE CARLOS
--- OUTSIDE RECORDS SUMMARY | 2025-04-09 07:33 | XMS_ITS | Patient Health Record ---
Author Organization [facility] [address] Address [address] [place] [address] Care Team Providers Care Legal Operations Manager Name Role Phone Johnathan Zayas Primary Care Provider UnavailTeagan Kelly Unavailable [phone] Lamar Earl Unavailable [phone] Allergies Allergen (clinical drug ingredient) Drug/Non Drug [...] Oral ly Once a day Active Zepbound 7.5 MG/0.5ML 0.5 mL Subcutaneou s weekly; Duration: 28 days 11/12/2024 Active Problems Problem Type SNOMED Code ICD Code Onset Dates Problem Status W/U Status Risk Notes Problem Essential hypertension (22009733) Essential hypertension (I10) Active confirmed Problem Acquired hypothyroidism (683686982) Acquired hypothyroidism (E03.9) Active confirmed Problem Hypothyroidism (00996253) Hypothyroidism, unspecified type (E03.9) Active confirmed Problem Obstructive sleep apnea syndrome (77568968) KAI (obstructive sleep apnea) (G47.33) Active confirmed Problem Obese class II (291885720185061) BMI 37.0-37.9, adult (Z68.37) Active confirmed Problem Obese class I (185769537640716) BMI 33.0-33.9,adult (Z68.33) Active confirmed Problem Obese class II (014043001579044) BMI 39.0-39.9,adult (Z68.39) Active confirmed Problem Obese class II (546047123952180) BMI 36.0-36.9,adult (Z68.36) Active confirmed Problem Body mass index 30.00 to 34.99 (837477487253791) BMI 34.0-34.9,adult (Z68.34) Active confirmed Problem Obstructive sleep apnea syndrome (17262648) Obstructive apnea (G47.33) Active confirmed Problem Essential hypertension (28893871) Hypertension, essential (I10) Active confirmed Problem Obesity (633016305) Moderate obesity (E66.9) Active confirmed Vital Signs Heart Rate 81 /min 03/24/2025 Blood pressure diastolic 76 mm Hg 03/24/2025 Oximetry 99 % 03/24/2025 Height 63.75 in 03/24/2025 Blood pressure systolic 138 mm Hg 03/24/2025 Weight 194.3 lbs 03/24/2025 BMI 33.61 kg/m2 03/24/2025 Encounters Encounter Location Date Provider Diagnosis [facility] [address] [address] 11/12/2024 Teagan Normoyle Moderate obesity E66 .9 ; BMI 39.0-39.9,adult Z68.39 ; KAI (obstructive sleep apnea) G47.33 ; Essential hypertension I10 ; Acquired hypothyroidism E03.9 ; Encounter for examination of blood pressure without abnormal findings Z01.30 and Prediabetes R73.03 [facility] [address] [address] 12/14/2024 Teagan Normoyle BMI 37.0-37.9, adult Z68.37 ; Moderate obesity E66.9 ; KAI (obstructive sleep apnea) G47.33 ; Essential hypertension I10 ; Prediabetes R73.03 ; Acquired hypothyroidism E03.9 and Encounter for examination of blood pressure without abnormal findings Z01.30 [facility] [address] [address] 01/17/2025 Teagan Normoyle BMI 36.0-36.9,adult Z68.36 ; Moderate obesity E66.9 ; KAI (obstructive sleep apnea) G47.33 ; Essential hypertension I10 ; Prediabetes R73.03 ; Acquired hypothyroidism E03.9 and Encounter for examination of blood pressure without abnormal findings Z01.30 [facility] [address] [address] 02/21/2025 Teagan Normoyle BMI 34.0-34.9,adult Z68.34 ; Moderate obesity E66.9 ; KAI (obstructive sleep apnea) G47.33 ; Essential hypertension I10 ; Prediabetes R73.03 ; Acquired hypothyroidism E03.9 and Encounter for examination of blood pressure without abnormal findings Z01.30 [facility] [address] [address] 03/24/2025 Lamar Svrcek BMI 33.0-33.9,adult Z68.33 ; Moderate obesity E66.9 ; KAI (obstructive sleep apnea) G47.33 ; Essential hypertension I10 ; Prediabetes R73.03 ; Acquired hypothyroidism E03.9 ; Encounter for examination of blood pressure without abnormal findings Z01.30 and Encounter for weight loss counseling Z71.3 [facility] [address] [address] 11/12/2024 Teagan Normoyle [facility] [address] [address] 12/28/2024 Teagan Normoyle KAI (obstructive sle ep apnea) G47.33 [facility] [address] [address] 12/09/2024 Teagan Normoyle KAI (obstructive sle ep apnea) G47.33 [facility] [address] [address] 01/10/2025 Teagan Normoyle KAI (obstructive sle ep apnea) G47.33 [facility] [address] [address] 01/10/2025 Teagan Normoyle [facility] [address] [address] 02/04/2025 Teagan Normoyle KAI (obstructive sle ep apnea) G47.33 Assessments Encounter Date Diagnosis (ICD Code) Assessment [...] 4 weeks. #Obstructive sleep apnea: Follows with [facility], she had a sleep study done [...] management. Consider group exercises. Consider hiring a representative personal service. Regular exercise is crowe to sustainable health [...] counseling and psychiatry and Dr Padilla at [facility]. We would like to cover regular topics [...] Dictation was accomplished with the use of [employer] voice recognition software, prone to medical misidentifications [...] 4 weeks. #Obstructive sleep apnea: Follows with [facility], she had a sleep study done [...] Consider using apps like 7 minute excercise, [employer], lose it, stick as needed for self-monitoring and weight management. Consider group exercises. Consider hiring a representative personal service. Regular exercise is crowe to sustainable health [...] counseling and psychiatry and Dr Padilla at [facility]. We would like to cover regular topics [...] Dictation was accomplished with the use of [employer] voice recognition software, prone to medical misidentifications [...] 4 weeks. #Obstructive sleep apnea: Follows with [facility], she had a sleep study done [...] Consider using apps like 7 minute excercise, [employer], lose it, stick as needed for self-monitoring and weight management. Consider group exercises. Consider hiring a representative personal service. Regular exercise is crowe to sustainable health [...] counseling and psychiatry and Dr Padilla at [facility]. We would like to cover regular topics [...] Dictation was accomplished with the use of [employer] voice recognition software, prone to medical misidentifications [...] 4 weeks. #Obstructive sleep apnea: Follows with [facility], she had a sleep study done [...] Consider using apps like 7 minute excercise, [employer], lose it, stick as needed for self-monitoring and weight management. Consider group exercises. Consider hiring a representative personal service. Regular exercise is crowe to sustainable health [...] counseling and psychiatry and Dr Padilla at [facility]. We would like to cover regular topics [...] Dictation was accomplished with the use of [employer] voice recognition software, prone to medical misidentifications and grammatical errors. This is unintentional and the practitioner does try to identify and correct these, but some could still be present. Please do not hesitate to contact practitioner for clarification. All questions answered to patients satisfaction. Patient verbalized understanding of diagnosis and treatments explained. To call sooner prior to next visit it any questions/concerns arise. 02/04/2025 KAI (obstructive sleep apnea) (ICD-10 - G47.33) 02/21/2025 BMI 34.0-34.9,adult (ICD-10 - Z68.34) Esha is a 59-year-old female who presents [...] this time. Will follow-up in 4 weeks. 02/21/2025: Weight 200.2 pounds, BMI 34.6. Continues on Zepbound 5 mg weekly injections. On review of body composition scan, fat mass decreased 6 pounds, muscle mass decreased less than 1 pound, visceral adipose tissue went from 2.4-2.9. Congratulated on effort. Discussed exercise, hydration, protein goals. Advised patient to utilize a B complex vitamin. Plan to increase to Zepbound 7.5 mg weekly injections. Follow-up in 4 weeks. #Obstructive sleep apnea: Follows with [facility], she had a sleep study done [...] management. Consider group exercises. Consider hiring a representative personal service. Regular exercise is crowe to sustainable health [...] counseling and psychiatry and Dr Padilla at [facility]. We would like to cover regular topics [...] Dictation was accomplished with the use of [employer] voice recognition software, prone to medical misidentifications and grammatical errors. This is unintentional and the practitioner does try to identify and correct these, but some could still be present. Please do not hesitate to contact practitioner for clarification. All questions answered to patients satisfaction. Patient verbalized understanding of diagnosis and treatments explained. To call sooner prior to next visit it any questions/concerns arise. 03/24/2025 BMI 33.0-33.9,adult (ICD-10 - Z68.33) #Obesity: 03/24/25: 194.3, BMI 33.6. She is doing well on Zepbound 7.5 mg. Weight is down 6 pounds, however fat mass is stable and muscle is down 5.5 lbs. We did discuss this is a different scale and could affect the readings slightly, as well as hydration. Will continue current regimen. Continue to focus on protein intake, hydration and regular exercise. Encouraged to add resistance training. Follow up in 1 month, sooner as needed. #Obstructive sleep apnea: Follows with [facility], she had a sleep study done within the past year which showed obstructive sleep apnea. She is compliant with CPAP. #Hypertension: Well-controlled today. Continue amlodipine 2.5 mg daily, losartan-HCTZ 100-12.5 mg daily. #Hypothyroidism: Continue levothyroxine 200 mcg daily. Follows closely with PCP every 3 months The patient will continue exercise regimen with an emphasis on improving/increasing steps to at least 6,000-10,000 steps per day. Increasing cardio and strength training exercises as tolerated to improve weight loss and work on building muscle mass. Patient is committed to smarter eating with calorie counting and mindful eating. Limiting processed foods and carbohydrates and increasing leafy greens and lean proteins as well as fruits into their diet. Patient was counseled on the importance of eating local, organic food when possible. Patient has been counseled regarding effects of GLP/GIP-1 agonists and other FDA approved weight loss medications with regards to a multifactorial approach of weight loss as mentioned above and that the medication alone will not be sufficient to meet patients goals. We discussed holistic medication approach with emphasis on lifestyle modification. Discussed obesity as it increases risk of diabetes, cardiovascular disease, and/or organ damage. We spent a lot of time discussing the relationship between food, exercise, sleep, mental health, and obesity. We discussed the importance of having SECAs done every visit and having accountability done during these visits. That the scale is done to monitor not only weight loss but the body composition during medication management and healthy lifestyle changes. We discussed that if the patient is unable at times to financially afford this scale that we would rather waive the fee and have the scale done than have the patient not have the scale obtained. Will follow up with the patient in 4 weeks time to monitor weight loss. Total time was 30 min, greater than 50 % of time was spent on care coordination Case discussed with collaborating physician Braden Hardwick who reviewed the assessment and plan. Chart, medications, labs, vital signs reviewed. Dictation was accomplished with the use of [employer] voice recognition software, prone to medical misidentifications and grammatical errors. This is unintentional and the practitioner does try to identify and correct these, but some could still be present. Please do not hesitate to contact practitioner for clarification. All questions answered to patients satisfaction. Patient verbalized understanding of diagnosis and treatments explained. To call sooner prior to next visit it any questions/concerns arise. 03/24/2025 KAI (obstructive sleep apnea) (ICD-10 - G47.33) #Obesity: 03/24/25: 194.3, BMI 33.6. She is doing well on Zepbound 7.5 mg. Weight is down 6 pounds, however fat mass is stable and muscle is down 5.5 lbs. We did discuss this is a different scale and could affect the readings slightly, as well as hydration. Will continue current regimen. Continue to focus on protein intake, hydration and regular exercise. Encouraged to add resistance training. Follow up in 1 month, sooner as needed. #Obstructive sleep apnea: Follows with [facility], she had a sleep study done within the past year which showed obstructive sleep apnea. She is compliant with CPAP. #Hypertension: Well-controlled today. Continue amlodipine 2.5 mg daily, losartan-HCTZ 100-12.5 mg daily. #Hypothyroidism: Continue levothyroxine 200 mcg daily. Follows closely with PCP every 3 months The patient will continue exercise regimen with an emphasis on improving/increasing steps to at least 6,000-10,000 steps per day. Increasing cardio and strength training exercises as tolerated to improve weight loss and work on building muscle mass. Patient is committed to smarter eating with calorie counting and mindful eating. Limiting processed foods and carbohydrates and increasing leafy greens and lean proteins as well as fruits into their diet. Patient was counseled on the importance of eating local, organic food when possible. Patient has been counseled regarding effects of GLP/GIP-1 agonists and other FDA approved weight loss medications with regards to a multifactorial approach of weight loss as mentioned above and that the medication alone will not be sufficient to meet patients goals. We discussed holistic medication approach with emphasis on lifestyle modification. Discussed obesity as it increases risk of diabetes, cardiovascular disease, and/or organ damage. We spent a lot of time discussing the relationship between food, exercise, sleep, mental health, and obesity. We discussed the importance of having SECAs done every visit and having accountability done during these visits. That the scale is done to monitor not only weight loss but the body composition during medication management and healthy lifestyle changes. We discussed that if the patient is unable at times to financially afford this scale that we would rather waive the fee and have the scale done than have the patient not have the scale obtained. Will follow up with the patient in 4 weeks time to monitor weight loss. Total time was 30 min, greater than 50 % of time was spent on care coordination Case discussed with collaborating physician Braden Hardwick who reviewed the assessment and plan. Chart, medications, labs, vital signs reviewed. Dictation was accomplished with the use of [employer] voice recognition software, prone to medical misidentifications and grammatical errors. This is unintentional and the practitioner does try to identify and correct these, but some could still be present. Please do not hesitate to contact practitioner for clarification. All questions answered to patients satisfaction. Patient verbalized understanding of diagnosis and treatments explained. To call sooner prior to next visit it any questions/concerns arise. 03/24/2025 Moderate obesity (ICD-10 - E66.9) #Obesity: 03/24/25: 194.3, BMI 33.6. She is doing well on Zepbound 7.5 mg. Weight is down 6 pounds, however fat mass is stable and muscle is down 5.5 lbs. We did discuss this is a different scale and could affect the readings slightly, as well as hydration. Will continue current regimen. Continue to focus on protein intake, hydration and regular exercise. Encouraged to add resistance training. Follow up in 1 month, sooner as needed. #Obstructive sleep apnea: Follows with [facility], she had a sleep study done within the past year which showed obstructive sleep apnea. She is compliant with CPAP. #Hypertension: Well-controlled today. Continue amlodipine 2.5 mg daily, losartan-HCTZ 100-12.5 mg daily. #Hypothyroidism: Continue levothyroxine 200 mcg daily. Follows closely with PCP every 3 months The patient will continue exercise regimen with an emphasis on improving/increasing steps to at least 6,000-10,000 steps per day. Increasing cardio and strength training exercises as tolerated to improve weight loss and work on building muscle mass. Patient is committed to smarter eating with calorie counting and mindful eating. Limiting processed foods and carbohydrates and increasing leafy greens and lean proteins as well as fruits into their diet. Patient was counseled on the importance of eating local, organic food when possible. Patient has been counseled regarding effects of GLP/GIP-1 agonists and other FDA approved weight loss medications with regards to a multifactorial approach of weight loss as mentioned above and that the medication alone will not be sufficient to meet patients goals. We discussed holistic medication approach with emphasis on lifestyle modification. Discussed obesity as it increases risk of diabetes, cardiovascular disease, and/or organ damage. We spent a lot of time discussing the relationship between food, exercise, sleep, mental health, and obesity. We discussed the importance of having SECAs done every visit and having accountability done during these visits. That the scale is done to monitor not only weight loss but the body composition during medication management and healthy lifestyle changes. We discussed that if the patient is unable at times to financially afford this scale that we would rather waive the fee and have the scale done than have the patient not have the scale obtained. Will follow up with the patient in 4 weeks time to monitor weight loss. Total time was 30 min, greater than 50 % of time was spent on care coordination Case discussed with collaborating physician Braden Hardwick who reviewed the assessment and plan. Chart, medications, labs, vital signs reviewed. Dictation was accomplished with the use of [employer]rent voice recognition software, prone to medical misidentifications and grammatical errors. This is unintentional and the practitioner does try to identify and correct these, but some could still be present. Please do not hesitate to contact practitioner for clarification. All questions answered to patients satisfaction. Patient verbalized understanding of diagnosis and treatments explained. To call sooner prior to next visit it any questions/concerns arise. 02/21/2025 Moderate obesity (ICD-10 - E66.9) Esha is [...] this time. Will follow-up in 4 weeks. 02/21/2025: Weight 200.2 pounds, BMI 34.6. Continues on Zepbound 5 mg weekly injections. On review of body composition scan, fat mass decreased 6 pounds, muscle mass decreased less than 1 pound, visceral adipose tissue went from 2.4-2.9. Congratulated on effort. Discussed exercise, hydration, protein goals. Advised patient to utilize a B complex vitamin. Plan to increase to Zepbound 7.5 mg weekly injections. Follow-up in 4 weeks. #Obstructive sleep apnea: Follows with [facility], she had a sleep study done [...] Consider using apps like 7 minute excercise, [employer], lose it, stick as needed for self-monitoring and weight management. Consider group exercises. Consider hiring a representative personal service. Regular exercise is crowe to sustainable health [...] counseling and psychiatry and Dr Padilla at [facility]. We would like to cover regular topics [...] Dictation was accomplished with the use of [employer] voice recognition software, prone to medical misidentifications and grammatical errors. This is unintentional and the practitioner does try to identify and correct these, but some could still be present. Please do not hesitate to contact practitioner for clarification. All questions answered to patients satisfaction. Patient verbalized understanding of diagnosis and treatments explained. To call sooner prior to next visit it any questions/concerns arise. 02/21/2025 KAI (obstructive sleep apnea) (ICD-10 - G47.33) [...] this time. Will follow-up in 4 weeks. 02/21/2025: Weight 200.2 pounds, BMI 34.6. Continues on Zepbound 5 mg weekly injections. On review of body composition scan, fat mass decreased 6 pounds, muscle mass decreased less than 1 pound, visceral adipose tissue went from 2.4-2.9. Congratulated on effort. Discussed exercise, hydration, protein goals. Advised patient to utilize a B complex vitamin. Plan to increase to Zepbound 7.5 mg weekly injections. Follow-up in 4 weeks. #Obstructive sleep apnea: Follows with [facility], she had a sleep study done [...] Consider using apps like 7 minute excercise, [employer], lose it, stick as needed for self-monitoring and weight management. Consider group exercises. Consider hiring a representative personal service. Regular exercise is crowe to sustainable health [...] counseling and psychiatry and Dr Padilla at [facility]. We would like to cover regular topics [...] Dictation was accomplished with the use of [employer] voice recognition software, prone to medical misidentifications [...] 4 weeks. #Obstructive sleep apnea: Follows with [facility], she had a sleep study done [...] Consider using apps like 7 minute excercise, [employer], lose it, stick as needed for self-monitoring and weight management. Consider group exercises. Consider hiring a representative personal service. Regular exercise is crowe to sustainable health [...] counseling and psychiatry and Dr Padilla at [facility]. We would like to cover regular topics [...] Dictation was accomplished with the use of [employer] voice recognition software, prone to medical misidentifications [...] 4 weeks. #Obstructive sleep apnea: Follows with [facility], she had a sleep study done [...] management. Consider group exercises. Consider hiring a representative personal service. Regular exercise is crowe to sustainable health [...] counseling and psychiatry and Dr Padilla at [facility]. We would like to cover regular topics [...] Dictation was accomplished with the use of [employer] voice recognition software, prone to medical misidentifications [...] 4 weeks. #Obstructive sleep apnea: Follows with [facility], she had a sleep study done [...] Consider using apps like 7 minute excercise, [employer], lose it, stick as needed for self-monitoring and weight management. Consider group exercises. Consider hiring a representative personal service. Regular exercise is crowe to sustainable health [...] counseling and psychiatry and Dr Padilla at [facility]. We would like to cover regular topics [...] Dictation was accomplished with the use of [employer] voice recognition software, prone to medical misidentifications [...] 4 weeks. #Obstructive sleep apnea: Follows with [facility], she had a sleep study done [...] Consider using apps like 7 minute excercise, [employer], lose it, stick as needed for self-monitoring and weight management. Consider group exercises. Consider hiring a representative personal service. Regular exercise is crowe to sustainable health [...] counseling and psychiatry and Dr Padilla at [facility]. We would like to cover regular topics [...] Dictation was accomplished with the use of [employer] voice recognition software, prone to medical misidentifications [...] 4 weeks. #Obstructive sleep apnea: Follows with [facility], she had a sleep study done [...] Consider using apps like 7 minute excercise, [employer], lose it, stick as needed for self-monitoring and weight management. Consider group exercises. Consider hiring a representative personal service. Regular exercise is crowe to sustainable health [...] counseling and psychiatry and Dr Padilla at [facility]. We would like to cover regular topics [...] Dictation was accomplished with the use of [employer] voice recognition software, prone to medical misidentifications [...] 4 weeks. #Obstructive sleep apnea: Follows with [facility], she had a sleep study done [...] Consider using apps like 7 minute excercise, [employer], lose it, stick as needed for self-monitoring and weight management. Consider group exercises. Consider hiring a representative personal service. Regular exercise is [place] to sustainable health [...] counseling and psychiatry and Dr Padilla at [facility]. We would like to cover regular topics [...] Dictation was accomplished with the use of [employer] voice recognition software, prone to medical misidentifications [...] 4 weeks. #Obstructive sleep apnea: Follows with [facility], she had a sleep study done [...] Consider using apps like 7 minute excercise, [employer], lose it, stick as needed for self-monitoring and weight management. Consider group exercises. Consider hiring a representative personal service. Regular exercise is crowe to sustainable health [...] counseling and psychiatry and Dr Padilla at [facility]. We would like to cover regular topics [...] Dictation was accomplished with the use of [employer] voice recognition software, prone to medical misidentifications [...] 4 weeks. #Obstructive sleep apnea: Follows with [facility], she had a sleep study done [...] Consider using apps like 7 minute excercise, [employer], lose it, stick as needed for self-monitoring and weight management. Consider group exercises. Consider hiring a representative personal service. Regular exercise is crowe to sustainable health [...] counseling and psychiatry and Dr Padilla at [facility]. We would like to cover regular topics [...] Dictation was accomplished with the use of [employer] voice recognition software, prone to medical misidentifications and grammatical errors. This is unintentional and the practitioner does try to identify and correct these, but some could still be present. Please do not hesitate to contact practitioner for clarification. All questions answered to patients satisfaction. Patient verbalized understanding of diagnosis and treatments explained. To call sooner prior to next visit it any questions/concerns arise. 02/21/2025 Essential hypertension (ICD-10 - I10) Esha is [...] this time. Will follow-up in 4 weeks. 02/21/2025: Weight 200.2 pounds, BMI 34.6. Continues on Zepbound 5 mg weekly injections. On review of body composition scan, fat mass decreased 6 pounds, muscle mass decreased less than 1 pound, visceral adipose tissue went from 2.4-2.9. Congratulated on effort. Discussed exercise, hydration, protein goals. Advised patient to utilize a B complex vitamin. Plan to increase to Zepbound 7.5 mg weekly injections. Follow-up in 4 weeks. #Obstructive sleep apnea: Follows with [facility], she had a sleep study done [...] Consider using apps like 7 minute excercise, [employer], lose it, stick as needed for self-monitoring and weight management. Consider group exercises. Consider hiring a representative personal service. Regular exercise is crowe to sustainable health [...] counseling and psychiatry and Dr Padilla at [facility]. We would like to cover regular topics [...] Dictation was accomplished with the use of [employer] voice recognition software, prone to medical misidentifications and grammatical errors. This is unintentional and the practitioner does try to identify and correct these, but some could still be present. Please do not hesitate to contact practitioner for clarification. All questions answered to patients satisfaction. Patient verbalized understanding of diagnosis and treatments explained. To call sooner prior to next visit it any questions/concerns arise. 03/24/2025 Essential hypertension (ICD-10 - I10) #Obesity: 03/24/25: 194.3, BMI 33.6. She is doing well on Zepbound 7.5 mg. Weight is down 6 pounds, however fat mass is stable and muscle is down 5.5 lbs. We did discuss this is a different scale and could affect the readings slightly, as well as hydration. Will continue current regimen. Continue to focus on protein intake, hydration and regular exercise. Encouraged to add resistance training. Follow up in 1 month, sooner as needed. #Obstructive sleep apnea: Follows with [facility], she had a sleep study done within the past year which showed obstructive sleep apnea. She is compliant with CPAP. #Hypertension: Well-controlled today. Continue amlodipine 2.5 mg daily, losartan-HCTZ 100-12.5 mg daily. #Hypothyroidism: Continue levothyroxine 200 mcg daily. Follows closely with PCP every 3 months The patient will continue exercise regimen with an emphasis on improving/increasing steps to at least 6,000-10,000 steps per day. Increasing cardio and strength training exercises as tolerated to improve weight loss and work on building muscle mass. Patient is committed to smarter eating with calorie counting and mindful eating. Limiting processed foods and carbohydrates and increasing leafy greens and lean proteins as well as fruits into their diet. Patient was counseled on the importance of eating local, organic food when possible. Patient has been counseled regarding effects of GLP/GIP-1 agonists and other FDA approved weight loss medications with regards to a multifactorial approach of weight loss as mentioned above and that the medication alone will not be sufficient to meet patients goals. We discussed holistic medication approach with emphasis on lifestyle modification. Discussed obesity as it increases risk of diabetes, cardiovascular disease, and/or organ damage. We spent a lot of time discussing the relationship between food, exercise, sleep, mental health, and obesity. We discussed the importance of having SECAs done every visit and having accountability done during these visits. That the scale is done to monitor not only weight loss but the body composition during medication management and healthy lifestyle changes. We discussed that if the patient is unable at times to financially afford this scale that we would rather waive the fee and have the scale done than have the patient not have the scale obtained. Will follow up with the patient in 4 weeks time to monitor weight loss. Total time was 30 min, greater than 50 % of time was spent on care coordination Case discussed with collaborating physician Braden Hardwick who reviewed the assessment and plan. Chart, medications, labs, vital signs reviewed. Dictation was accomplished with the use of [employer] voice recognition software, prone to medical misidentifications and grammatical errors. This is unintentional and the practitioner does try to identify and correct these, but some could still be present. Please do not hesitate to contact practitioner for clarification. All questions answered to patients satisfaction. Patient verbalized understanding of diagnosis and treatments explained. To call sooner prior to next visit it any questions/concerns arise. 02/21/2025 Prediabetes (ICD-10 - R73.03) Esha is a [...] this time. Will follow-up in 4 weeks. 02/21/2025: Weight 200.2 pounds, BMI 34.6. Continues on Zepbound 5 mg weekly injections. On review of body composition scan, fat mass decreased 6 pounds, muscle mass decreased less than 1 pound, visceral adipose tissue went from 2.4-2.9. Congratulated on effort. Discussed exercise, hydration, protein goals. Advised patient to utilize a B complex vitamin. Plan to increase to Zepbound 7.5 mg weekly injections. Follow-up in 4 weeks. #Obstructive sleep apnea: Follows with [facility], she had a sleep study done [...] Consider using apps like 7 minute excercise, [employer], lose it, stick as needed for self-monitoring and weight management. Consider group exercises. Consider hiring a representative personal service. Regular exercise is cro[place] to sustainable health [...] counseling and psychiatry and Dr Padilla at [facility]. We would like to cover regular topics [...] Dictation was accomplished with the use of [employer] voice recognition software, prone to medical misidentifications and grammatical errors. This is unintentional and the practitioner does try to identify and correct these, but some could still be present. Please do not hesitate to contact practitioner for clarification. All questions answered to patients satisfaction. Patient verbalized understanding of diagnosis and treatments explained. To call sooner prior to next visit it any questions/concerns arise. 03/24/2025 Prediabetes (ICD-10 - R73.03) #Obesity: 03/24/25: 194.3, BMI 33.6. She is doing well on Zepbound 7.5 mg. Weight is down 6 pounds, however fat mass is stable and muscle is down 5.5 lbs. We did discuss this is a different scale and could affect the readings slightly, as well as hydration. Will continue current regimen. Continue to focus on protein intake, hydration and regular exercise. Encouraged to add resistance training. Follow up in 1 month, sooner as needed. #Obstructive sleep apnea: Follows with [facility], she had a sleep study done within the past year which showed obstructive sleep apnea. She is compliant with CPAP. #Hypertension: Well-controlled today. Continue amlodipine 2.5 mg daily, losartan-HCTZ 100-12.5 mg daily. #Hypothyroidism: Continue levothyroxine 200 mcg daily. Follows closely with PCP every 3 months The patient will continue exercise regimen with an emphasis on improving/increasing steps to at least 6,000-10,000 steps per day. Increasing cardio and strength training exercises as tolerated to improve weight loss and work on building muscle mass. Patient is committed to smarter eating with calorie counting and mindful eating. Limiting processed foods and carbohydrates and increasing leafy greens and lean proteins as well as fruits into their diet. Patient was counseled on the importance of eating local, organic food when possible. Patient has been counseled regarding effects of GLP/GIP-1 agonists and other FDA approved weight loss medications with regards to a multifactorial approach of weight loss as mentioned above and that the medication alone will not be sufficient to meet patients goals. We discussed holistic medication approach with emphasis on lifestyle modification. Discussed obesity as it increases risk of diabetes, cardiovascular disease, and/or organ damage. We spent a lot of time discussing the relationship between food, exercise, sleep, mental health, and obesity. We discussed the importance of having SECAs done every visit and having accountability done during these visits. That the scale is done to monitor not only weight loss but the body composition during medication management and healthy lifestyle changes. We discussed that if the patient is unable at times to financially afford this scale that we would rather waive the fee and have the scale done than have the patient not have the scale obtained. Will follow up with the patient in 4 weeks time to monitor weight loss. Total time was 30 min, greater than 50 % of time was spent on care coordination Case discussed with collaborating physician Braden Hardwick who reviewed the assessment and plan. Chart, medications, labs, vital signs reviewed. Dictation was accomplished with the use of [employer] voice recognition software, prone to medical misidentifications [...] 4 weeks. #Obstructive sleep apnea: Follows with [facility], she had a sleep study done [...] Consider using apps like 7 minute excercise, [employer], lose it, stick as needed for self-monitoring and weight management. Consider group exercises. Consider hiring a representative personal service. Regular exercise is cro[place] to sustainable health [...] counseling and psychiatry and Dr Padilla at [facility]. We would like to cover regular topics [...] Dictation was accomplished with the use of [employer] voice recognition software, prone to medical misidentifications [...] 4 weeks. #Obstructive sleep apnea: Follows with [facility], she had a sleep study done [...] Consider using apps like 7 minute excercise, [employer], lose it, stick as needed for self-monitoring and weight management. Consider group exercises. Consider hiring a representative personal service. Regular exercise is [place] to sustainable health [...] counseling and psychiatry and Dr Padilla at [facility]. We would like to cover regular topics [...] Dictation was accomplished with the use of [employer] voice recognition software, prone to medical misidentifications [...] 4 weeks. #Obstructive sleep apnea: Follows with [facility], she had a sleep study done [...] Consider using apps like 7 minute excercise, [employer], lose it, stick as needed for self-monitoring and weight management. Consider group exercises. Consider hiring a representative personal service. Regular exercise is cro[place] to sustainable health [...] counseling and psychiatry and Dr Padilla at [facility]. We would like to cover regular topics [...] Dictation was accomplished with the use of [employer] voice recognition software, prone to medical misidentifications [...] 4 weeks. #Obstructive sleep apnea: Follows with [facility], she had a sleep study done [...] level. Consider using apps like 7 minute exceH-um[employer]ise, [employer], lose it, stick as needed for self-monitoring and weight management. Consider group exercises. Consider hiring a representative personal service. Regular exercise is crowe to sustainable health [...] counseling and psychiatry and Dr Padilla at [facility]. We would like to cover regular topics [...] Dictation was accomplished with the use of [employer] voice recognition software, prone to medical misidentifications [...] 4 weeks. #Obstructive sleep apnea: Follows with [facility], she had a sleep study done [...] management. Consider group exercises. Consider hiring a representative personal service. Regular exercise is [place] to sustainable health [...] counseling and psychiatry and Dr Padilla at [facility]. We would like to cover regular topics [...] Dictation was accomplished with the use of [employer] voice recognition software, prone to medical misidentifications [...] 4 weeks. #Obstructive sleep apnea: Follows with [facility], she had a sleep study done [...] Consider using apps like 7 minute excercise, [employer], lose it, stick as needed for self-monitoring and weight management. Consider group exercises. Consider hiring a representative personal service. Regular exercise is cro[place] to sustainable health [...] counseling and psychiatry and Dr Padilla at [facility]. We would like to cover regular topics [...] Dictation was accomplished with the use of [employer] voice recognition software, prone to medical misidentifications and grammatical errors. This is unintentional and the practitioner does try to identify and correct these, but some could still be present. Please do not hesitate to contact practitioner for clarification. All questions answered to patients satisfaction. Patient verbalized understanding of diagnosis and treatments explained. To call sooner prior to next visit it any questions/concerns arise. 02/21/2025 Acquired hypothyroidism (ICD-10 - E03.9) Esha is [...] this time. Will follow-up in 4 weeks. 02/21/2025: Weight 200.2 pounds, BMI 34.6. Continues on Zepbound 5 mg weekly injections. On review of body composition scan, fat mass decreased 6 pounds, muscle mass decreased less than 1 pound, visceral adipose tissue went from 2.4-2.9. Congratulated on effort. Discussed exercise, hydration, protein goals. Advised patient to utilize a B complex vitamin. Plan to increase to Zepbound 7.5 mg weekly injections. Follow-up in 4 weeks. #Obstructive sleep apnea: Follows with [facility], she had a sleep study done [...] Consider using apps like 7 minute excercise, [employer], lose it, stick as needed for self-monitoring and weight management. Consider group exercises. Consider hiring a representative personal service. Regular exercise is [place] to sustainable health [...] counseling and psychiatry and Dr Padilla at [facility]. We would like to cover regular topics [...] Dictation was accomplished with the use of [employer] voice recognition software, prone to medical misidentifications and grammatical errors. This is unintentional and the practitioner does try to identify and correct these, but some could still be present. Please do not hesitate to contact practitioner for clarification. All questions answered to patients satisfaction. Patient verbalized understanding of diagnosis and treatments explained. To call sooner prior to next visit it any questions/concerns arise. 03/24/2025 Acquired hypothyroidism (ICD-10 - E03.9) #Obesity: 03/24/25: 194.3, BMI 33.6. She is doing well on Zepbound 7.5 mg. Weight is down 6 pounds, however fat mass is stable and muscle is down 5.5 lbs. We did discuss this is a different scale and could affect the readings slightly, as well as hydration. Will continue current regimen. Continue to focus on protein intake, hydration and regular exercise. Encouraged to add resistance training. Follow up in 1 month, sooner as needed. #Obstructive sleep apnea: Follows with [facility], she had a sleep study done within the past year which showed obstructive sleep apnea. She is compliant with CPAP. #Hypertension: Well-controlled today. Continue amlodipine 2.5 mg daily, losartan-HCTZ 100-12.5 mg daily. #Hypothyroidism: Continue levothyroxine 200 mcg daily. Follows closely with PCP every 3 months The patient will continue exercise regimen with an emphasis on improving/increasing steps to at least 6,000-10,000 steps per day. Increasing cardio and strength training exercises as tolerated to improve weight loss and work on building muscle mass. Patient is committed to smarter eating with calorie counting and mindful eating. Limiting processed foods and carbohydrates and increasing leafy greens and lean proteins as well as fruits into their diet. Patient was counseled on the importance of eating local, organic food when possible. Patient has been counseled regarding effects of GLP/GIP-1 agonists and other FDA approved weight loss medications with regards to a multifactorial approach of weight loss as mentioned above and that the medication alone will not be sufficient to meet patients goals. We discussed holistic medication approach with emphasis on lifestyle modification. Discussed obesity as it increases risk of diabetes, cardiovascular disease, and/or organ damage. We spent a lot of time discussing the relationship between food, exercise, sleep, mental health, and obesity. We discussed the importance of having SECAs done every visit and having accountability done during these visits. That the scale is done to monitor not only weight loss but the body composition during medication management and healthy lifestyle changes. We discussed that if the patient is unable at times to financially afford this scale that we would rather waive the fee and have the scale done than have the patient not have the scale obtained. Will follow up with the patient in 4 weeks time to monitor weight loss. Total time was 30 min, greater than 50 % of time was spent on care coordination Case discussed with collaborating physician Braden Hardwick who reviewed the assessment and plan. Chart, medications, labs, vital signs reviewed. Dictation was accomplished with the use of [employer] voice recognition software, prone to medical misidentifications and grammatical errors. This is unintentional and the practitioner does try to identify and correct these, but some could still be present. Please do not hesitate to contact practitioner for clarification. All questions answered to patients satisfaction. Patient verbalized understanding of diagnosis and treatments explained. To call sooner prior to next visit it any questions/concerns arise. 03/24/2025 Encounter for examination of blood pressure without abnormal findings (ICD-10 - Z01.30) #Obesity: 03/24/25: 194.3, BMI 33.6. She is doing well on Zepbound 7.5 mg. Weight is down 6 pounds, however fat mass is stable and muscle is down 5.5 lbs. We did discuss this is a different scale and could affect the readings slightly, as well as hydration. Will continue current regimen. Continue to focus on protein intake, hydration and regular exercise. Encouraged to add resistance training. Follow up in 1 month, sooner as needed. #Obstructive sleep apnea: Follows with [facility], she had a sleep study done within the past year which showed obstructive sleep apnea. She is compliant with CPAP. #Hypertension: Well-controlled today. Continue amlodipine 2.5 mg daily, losartan-HCTZ 100-12.5 mg daily. #Hypothyroidism: Continue levothyroxine 200 mcg daily. Follows closely with PCP every 3 months The patient will continue exercise regimen with an emphasis on improving/increasing steps to at least 6,000-10,000 steps per day. Increasing cardio and strength training exercises as tolerated to improve weight loss and work on building muscle mass. Patient is committed to smarter eating with calorie counting and mindful eating. Limiting processed foods and carbohydrates and increasing leafy greens and lean proteins as well as fruits into their diet. Patient was counseled on the importance of eating local, organic food when possible. Patient has been counseled regarding effects of GLP/GIP-1 agonists and other FDA approved weight loss medications with regards to a multifactorial approach of weight loss as mentioned above and that the medication alone will not be sufficient to meet patients goals. We discussed holistic medication approach with emphasis on lifestyle modification. Discussed obesity as it increases risk of diabetes, cardiovascular disease, and/or organ damage. We spent a lot of time discussing the relationship between food, exercise, sleep, mental health, and obesity. We discussed the importance of having SECAs done every visit and having accountability done during these visits. That the scale is done to monitor not only weight loss but the body composition during medication management and healthy lifestyle changes. We discussed that if the patient is unable at times to financially afford this scale that we would rather waive the fee and have the scale done than have the patient not have the scale obtained. Will follow up with the patient in 4 weeks time to monitor weight loss. Total time was 30 min, greater than 50 % of time was spent on care coordination Case discussed with collaborating physician Braden Hardwick who reviewed the assessment and plan. Chart, medications, labs, vital signs reviewed. Dictation was accomplished with the use of [employer] voice recognition software, prone to medical misidentifications and grammatical errors. This is unintentional and the practitioner does try to identify and correct these, but some could still be present. Please do not hesitate to contact practitioner for clarification. All questions answered to patients satisfaction. Patient verbalized understanding of diagnosis and treatments explained. To call sooner prior to next visit it any questions/concerns arise. 02/21/2025 Encounter for examination of blood pressure without [...] this time. Will follow-up in 4 weeks. 02/21/2025: Weight 200.2 pounds, BMI 34.6. Continues on Zepbound 5 mg weekly injections. On review of body composition scan, fat mass decreased 6 pounds, muscle mass decreased less than 1 pound, visceral adipose tissue went from 2.4-2.9. Congratulated on effort. Discussed exercise, hydration, protein goals. Advised patient to utilize a B complex vitamin. Plan to increase to Zepbound 7.5 mg weekly injections. Follow-up in 4 weeks. #Obstructive sleep apnea: Follows with [facility], she had a sleep study done [...] Consider using apps like 7 minute [employer]cer[employer]ise, [employer], lose it, stick as needed for self-monitoring and weight management. Consider group exercises. Consider hiring a representative personal service. Regular exercise is [place] to sustainable health [...] counseling and psychiatry and Dr Padilla at [facility]. We would like to cover regular topics [...] Dictation was accomplished with the use of [employer] voice recognition software, prone to medical misidentifications [...] 4 weeks. #Obstructive sleep apnea: Follows with [facility], she had a sleep study done [...] Consider using apps like 7 minute excercise, Quietlypal, lose it, stick as needed for self-monitoring and weight management. Consider group exercises. Consider hiring a representative personal service. Regular exercise is crowe to sustainable health [...] counseling and psychiatry and Dr Padilla at [facility]. We would like to cover regular topics [...] Dictation was accomplished with the use of Allurent voice recognition software, prone to medical misidentifications [...] pressure without abnormal findings (ICD-10 - Z01.30) sEha is a 59-year-old female who presents for [...] 4 weeks. #Obstructive sleep apnea: Follows with [facility], she had a sleep study done [...] management. Consider group exercises. Consider hiring a representative personal service. Regular exercise is crowe to sustainable health [...] counseling and psychiatry and Dr Padilla at [facility]. We would like to cover regular topics [...] Dictation was accomplished with the use of Allurent voice recognition software, prone to medical misidentifications [...] 4 weeks. #Obstructive sleep apnea: Follows with [facility], she had a sleep study done [...] management. Consider group exercises. Consider hiring a representative personal service. Regular exercise is crowe to sustainable health [...] counseling and psychiatry and Dr Padilla at [facility]. We would like to cover regular topics [...] Dictation was accomplished with the use of [employer]urent voice recognition software, prone to medical misidentifications and grammatical errors. This is unintentional and the practitioner does try to identify and correct these, but some could still be present. Please do not hesitate to contact practitioner for clarification. All questions answered to patients satisfaction. Patient verbalized understanding of diagnosis and treatments explained. To call sooner prior to next visit it any questions/concerns arise. 03/24/2025 Encounter for weight loss counseling (ICD-10 - Z71.3) #Obesity: 03/24/25: 194.3, BMI 33.6. She is doing well on Zepbound 7.5 mg. Weight is down 6 pounds, however fat mass is stable and muscle is down 5.5 lbs. We did discuss this is a different scale and could affect the readings slightly, as well as hydration. Will continue current regimen. Continue to focus on protein intake, hydration and regular exercise. Encouraged to add resistance training. Follow up in 1 month, sooner as needed. #Obstructive sleep apnea: Follows with [facility], she had a sleep study done within the past year which showed obstructive sleep apnea. She is compliant with CPAP. #Hypertension: Well-controlled today. Continue amlodipine 2.5 mg daily, losartan-HCTZ 100-12.5 mg daily. #Hypothyroidism: Continue levothyroxine 200 mcg daily. Follows closely with PCP every 3 months The patient will continue exercise regimen with an emphasis on improving/increasing steps to at least 6,000-10,000 steps per day. Increasing cardio and strength training exercises as tolerated to improve weight loss and work on building muscle mass. Patient is committed to smarter eating with calorie counting and mindful eating. Limiting processed foods and carbohydrates and increasing leafy greens and lean proteins as well as fruits into their diet. Patient was counseled on the importance of eating local, organic food when possible. Patient has been counseled regarding effects of GLP/GIP-1 agonists and other FDA approved weight loss medications with regards to a multifactorial approach of weight loss as mentioned above and that the medication alone will not be sufficient to meet patients goals. We discussed holistic medication approach with emphasis on lifestyle modification. Discussed obesity as it increases risk of diabetes, cardiovascular disease, and/or organ damage. We spent a lot of time discussing the relationship between food, exercise, sleep, mental health, and obesity. We discussed the importance of having SECAs done every visit and having accountability done during these visits. That the scale is done to monitor not only weight loss but the body composition during medication management and healthy lifestyle changes. We discussed that if the patient is unable at times to financially afford this scale that we would rather waive the fee and have the scale done than have the patient not have the scale obtained. Will follow up with the patient in 4 weeks time to monitor weight loss. Total time was 30 min, greater than 50 % of time was spent on care coordination Case discussed with collaborating physician Braden Hardwick who reviewed the assessment and plan. Chart, medications, labs, vital signs reviewed. Dictation was accomplished with the use of Allurent voice recognition software, prone to medical misidentifications [...] Of Treatment Next Appt Details Provider Name:Teagan huerta, 04/28/2025 02:15:00 PM, [address], [facility] [address], [place], [address], Insurance Providers Payer Name Payer Address Payer Phone Subscriber Number Group Number Insured Name Patient Relationship to Insured Coverage Start Date Coverage End Date [facility] [address] [place] [address] [phone] [id number] ESHA [place] Self - patient is the insured 4 Medical (General) History Medical History History ICD Code Hypertension, essential I10 Hypothyroidism, unspecified type E03.9 Obstructive apnea G47.33 Surgical History Surgery Date(Month/Year) cholecystectomy 1999 breast augmentation 2006 tubal ligation 2000 Hospitalization History Reason Date(Month/Year) cholecystectomy 1999
--- OUTSIDE RECORDS SUMMARY | 2025-04-09 07:33 | XMS_ITS | Patient Health Record ---
[facility] Address [address] [place] [address] Care Team Providers Care Sole Stapler Welt Name Role Phone Johnathan Zayas Primary Care Provider Yudi Boss [phone] Allergies Allergen (clinical drug ingredient) Drug/Non Drug [...] X ray : Foot, left 3V 10/01/2022 [id number] TENDON SHEATH/LIGAMENT 0 10/01/2022 Insurance Providers Payer Name Payer Address Payer Phone Subscriber Number Group Number Insured Name Patient Relationship to Insured Coverage Start Date Coverage End Date [facility] [address] [facility] [place], [place] [address] [phone] [id number] Esha Freire Self - patient is the insured Medical (General) History Medical History History ICD Code High blood pressure thyroid Chicken pox Surgical History Surgery Date(Month/Year)
== END 2025-04-09 07:30 | disposition home or self-care (01) ==
LOC: HO.MAMMO 07:29
PROVIDERS: PCP Internal Medicine; Visit Provider Internal Medicine
DX: Z12.31 Encounter for screening mammogram for malignant neoplasm of breast (principal)
CPT/HCPCS: 77063; 77067

== ENCOUNTER → 2025-04-09 07:45 | Outpatient (BNV) | payer OTHER, SELFPAY | PROVIDERS: PCP Internal Medicine; Visit Provider Internal Medicine | DX: Z12.31 Encounter for screening mammogram for malignant neoplasm of breast (principal) | CPT/HCPCS: 77063; 77067 ==